=== PATIENT | male | born 1975 | race Caucasian/White ===

== ENCOUNTER → 2017-10-30 08:48 | Outpatient (CLI) | payer OTHER, SELFPAY ==
--- NOTE | 2017-10-30 08:50 | US_ITS ---
STUDY: ABDOMINAL ULTRASOUND - RIGHT UPPER QUADRANT REASON FOR VISIT: Male, 42 years old. Elevated liver function tests. TECHNIQUE: Ultrasound evaluation of the right upper quadrant was performed with real-time and static luz-scale imaging. TECHNICAL QUALITY: Adequate. COMPARISON: Comparison is made with prior examination dated December 07, 2013. FINDINGS: Liver: The liver measures 13.9 cm. There is increased echogenicity consistent with fatty infiltration. The bile ducts are within normal limits. There is hepatic color flow. The direction of portal flow is hepatopetal. There is no demonstrated mass lesion. Gallbladder: The patient is status post cholecystectomy. Common Bile Duct (C.B.D.): The common bile duct measures 4.5 mm. Pancreas: There is nonvisualization of the pancreas due to overlying bowel gas. Right Kidney: Normal size of the right kidney. The right kidney measures 10.2 cm x 5.1 cm x 5.8 cm. Normal renal cortex. The right cortex measures 1.7 cm. There now is evidence of a 4.4 cm x 3.7 cm x 4.3 cm hypoechoic solid mass in the medial aspect of the right kidney. Correlation with a CT scan is recommended. Stable 1.3 cm x 1.1 cm x 1.3 cm cyst. Stable nonobstructive right intrarenal calculus. There is no right hydronephrosis. US/Liver IMPRESSION: Fatty infiltration of the liver. There is a new 4.4 cm x 3.7 cm x 4.3 cm hypoechoic mass arising from the medial aspect of the right kidney. Correlation with CT scan is recommended. Electronically Signed: Young Aguayo MD at 11:17 EST Tel [phone], Service support ,
== END ==
PROVIDERS: Family Provider Nurse Practitioner; PCP Nurse Practitioner; Visit Provider Nurse Practitioner
DX: R74.8 Abnormal levels of other serum enzymes (principal)
CPT/HCPCS: 76705

== ENCOUNTER → 2017-10-30 13:43 | Outpatient (CLI) | payer OTHER, SELFPAY ==
--- NOTE | 2017-10-30 13:57 | CT_ITS ---
STUDY: CT ABDOMEN AND PELVIS WITH AND WITHOUT CONTRAST REASON FOR EXAM: Male, 42 years old. Assessment of a right renal mass seen on prior ultrasound of the abdomen. RADIATION DOSAGE (If Supplied By Facility): CTDIvol = ( 24.94 ) mGy, DLP = ( 3801.71 ) mGycm TECHNIQUE: Transaxial images were obtained from the dome of the diaphragm to the symphysis pubis without oral contrast. 100ML ml of Isovue 300 contrast was administered. Sagittal and coronal images were reconstructed. Individualized dose optimization techniques were used for this CT. COMPARISON: Comparison is made with prior ultrasound earlier today. FINDINGS: The visualized lung bases are unremarkable. The visualized portions of the heart are within normal limits. There is a 1.1 cm cyst in the peripheral lateral aspect of the right lobe of the liver superiorly. The patient is status post cholecystectomy. There is mild splenomegaly. Normal pancreas. Normal bilateral adrenal glands. There is evidence of a 5.5 cm x 3.6 cm x 4.2 cm inhomogeneously enhancing solid mass along the anterior superior aspect of the right kidney. This corresponds to the ultrasound findings. Normal left kidney. Normal visualized stomach. Normal small intestine. Normal colon. The appendix is visualized and appears normal. Normal abdominal aorta. Normal inferior vena cava. Normal retroperitoneum. Normal urinary bladder. Normal abdominal wall. Normal osseous structures. CT/CT Abd/Pelvis W/WO Contrast IMPRESSION: There is a 5.5 cm x 3.6 cm x 4.2 cm inhomogeneously enhancing solid mass arising from the anterior superior aspect of the right kidney. A neoplastic process should be ruled out. Mild splenomegaly. Small cyst in the right lobe of the liver. Electronically Signed: Young Aguayo MD at 14:47 EST Tel [phone], Service support ,
== END ==
PROVIDERS: Family Provider Nurse Practitioner; PCP Nurse Practitioner; Visit Provider Nurse Practitioner
DX: N28.89 Other specified disorders of kidney and ureter (principal)
CPT/HCPCS: 74178; Q9967

== ENCOUNTER 2017-11-22 05:36 | Inpatient (IN) | payer OTHER, SELFPAY ==
[2017-11-18 14:10] VITALS: BP 148/92; PULSE 71; RESP 16; TEMP 37.3; O2SAT 99; BMI 27.6
--- NOTE | 2017-11-18 14:44 | SDCEKG_ITS ---
Test Reason : Blood Pressure : / mmHG Vent. Rate : 059 BPM Atrial Rate : 059 BPM P-R Int : 150 ms QRS Dur : 090 ms QT Int : 412 ms P-R-T Axes : 027 054 013 degrees QTc Int : 407 ms Sinus bradycardia with sinus arrhythmia Otherwise normal ECG Confirmed by MARJAN RODRIGUEZ, DASH ([id number]), editorial project manager LOVE YEE ([id number]) on 11/22/2017 1:34:49 PM Referred By: Jorge Moore Confirmed By:DASH PHILLIP MD
--- NOTE | 2017-11-18 15:02 | RAD_ITS ---
STUDY: X-RAY CHEST REASON FOR EXAM: Male, 42 years old. Preoperative evaluation. TECHNIQUE: PA and lateral views of the chest. COMPARISON: None. FINDINGS: The lungs are clear and expanded. There is no demonstrated pleural abnormality. Normal size heart. Normal mediastinum and silvana. Normal visualized pulmonary arteries. Normal visualized aortic arch and descending thoracic aorta. There is a dextroscoliosis of the thoracic spine. Normal visualized ribs, clavicles, and shoulders. There is no demonstrated abnormality of the visualized soft tissue structures of the upper abdomen. RAD/Chest PA and Lateral IMPRESSION: Normal x-ray examination of the chest. Electronically Signed: Young Aguayo MD at 15:46 EDT Tel [phone], Service support ,
[2017-11-18 15:23] LABS: Hematocrit 42.9 % (40-54); Hemoglobin 14.6 g/dl (13.0-16.5); Mean Corpuscular Hgb 29.1 pg (27.0-32.0); Mean Corpuscular Volume 85.5 fL (80-94); Mean Platelet Vol. 10.4 fl (6.2-12.0); Platelet Count 205 K/mm3 (150-450); RBC Distribution Width SD 40.1 fl (35.1-43.9); Red Blood Count 5.02 M/mm3 (4.6-6.2); White Blood Count 4.5 K/mm3 (4.4-11.0)
[2017-11-18 15:33] LABS: Scan Indicated on CBC? Y/N NO
[2017-11-18 16:01] LABS: ALB/GLOB Ratio 1.2 RATIO (0.9-2.4); AST(SGOT) 21 U/L (15-37); Alanine Aminotransfer ALT/SGPT 49 U/L (16-61); Alkaline Phosphatase 100 U/L (45-117); Anion Gap 5 (5-15); BUN 12 mg/dL (7-18); BUN/Creat Ratio 10.9 RATIO (10-20); Calcium,Total 8.9 mg/dL (8.5-10.1); Chloride 104 mmol/L (98-107); EST Glomerular Filtration Rate 78 mL/min (>60); Est Glom Filt Rate - Afr Amer 94 mL/min (>60); Estimated Creatinine Clearance 104.56 ml/min; Globulin 3.2 g/dL (2.2-4.2); Glucose 109 mg/dL (74-106); Potassium 4.2 mmol/L (3.5-5.1); Protein, Total 7.2 g/dL (6.4-8.2); Sodium Level 140 mmol/L (136-145)
[2017-11-18 16:34] LABS: Partial Thromboplast Time 30.8 Seconds (24.1-36.2)
[2017-11-22] VITALS (12 sets, daily range): BP systolic 128–152; BP diastolic 76–98; PULSE 49–92; RESP 12–18; TEMP 36.1–37.3; O2SAT 96–100; BMI 27.6
--- NOTE | 2017-11-22 | KID_PTH ---
PATIENT: ENRIQUETA REESE LOC: [facility] U#:[id number] AGE/SX: 42/M ROOM: IN320 RE11/22/[address]: Dr. Jorge Moore MD : [id number] BED: 1 DIS: 11/24/2017 SPEC #: [id number] RECD: 11/22/17 12:15 STATUS: TOMÁS DAMION #: [id number] FRANCOISE: 11/22/17 00:[address]: Jorge Moore DEPT: SURGICAL PATHOLOGY RECD BY: Scooter Gregg ENTERED: 11/22/17 12:16 SP TYPE: KIDNEY OTHR DR: Patricia Chauhan, VINEYARD TENDER-C Tissues: Kidney, NOS Procedures: Surgery Specimen Level V HEADER OPERATION: Laparoscopic robotic right partial nephrectomy PRE-OP DIAGNOSIS: Right renal mass TISSUE SUBMITTED: Right renal mass MICROSCOPIC DIAGNOSIS Right renal mass, partial nephrectomy: Clear cell renal cell carcinoma. See cancer check list below. AM:elizabeth 11/26/17 COMMENT KIDNEY CANCER SUMMARY: Procedure ? partial nephrectomy Specimen laterality - right Tumor size - 4.5 x 4 x 3 cm Tumor focality - unifocal Macroscopic extent of tumor ? tumor confined to kidney Histologic type ? clear cell renal cell carcinoma Sarcomatoid features ? not identified Histologic grade (Niels nuclear grade) ? G2 Microscopic tumor extension ? tumor limited to kidney Margins ? uninvolved by invasive carcinoma Regional lymph nodes ? not submitted Other findings ? mild arterial nephrosclerosis and mild chronic inflammation. PATHOLOGIC STAGE: pT1b Nx Mx The above summary is in compliance with [employer] (CAP) Cancer Protocols Checklist and [place] Joint Committee on Cancer (AJCC), Staging Manual, 8th Ed. Case has been reviewed in consultation with Dr. Pascual who concurs with the above diagnosis. IDC:SJ MICROSCOPIC DESCRIPTION Slides are reviewed. GROSS DESCRIPTION Received in fixative is one container labeled with the patient's name and designated right mid renal mass. The specimen consists of a mass with portions of attached kidney and perinephric fat measuring 9 x 7 x 4 cm and weighing 64 gm. The mass is yellow with areas of hemorrhage and yellow discoloration. The mass measures 4.5 x 4 x 3 cm. The presumed parenchymal margin is inked in blue ink. The perinephric fatty tissue margin is inked in green ink. Healthcare Specialist sections of the specimen are submitted in ten cassettes. / AM:elizabeth 11/25/17 TC:0 CPT: 25906
[2017-11-22] MEDS: Cefazolin 2 GM in 0.9% Normal Saline 100 ML IV (07:26)
[2017-11-22] MEDS: Bupivacaine Mpf 0.5% 30 ML VIAL (11:45)
--- NOTE | 2017-11-22 11:55 | PCM.OPRPT ---
Problem List (1) Right renal mass Status: Acute Report of Operation Date of Procedure: 11/22/17 Pre-Operative Diagnosis: Right renal mass Post-Operative Diagnosis: Same Surgery/Procedure Performed:: Laparoscopic robotic assisted right partial nephrectomy and intraoperative ultrasound Description of Surgical Findings:: 42-year-old male who presented to the office with a 5 cm right renal mass incidentally found on ultrasound and CAT scan. Because of the abnormal growth in his kidney recommended we proceed with a right partial nephrectomy we reviewed the risks and benefits of the surgery extensively in my office. 42-year-old male taken back to the operating room after smooth induction of general anesthesia he was placed supine on the table he underwent anesthesia endotracheal intubation. Elder catheter was placed. He was then positioned on his right side with his right flank up for approach to the right kidney laparoscopically. We then inspected the abdomen the abdomen was shaved prepped and draped in usual sterile fashion he had a prior gallbladder surgery. He had prior pediatric surgery with a off midline incision. I decided to put in the first trocar right above the midline. Midline incision from his prior incision. Made an incision the skin advanced the Veress needle into the peritoneal cavity insufflated the peritoneal cavity with CO2 gas placed my camera trocar placed my right trocar placement left trocar and then placed my fourth trocar for the robot fourth arm. We then used sharp scissors and dissected the adhesions to the paramedian incision from his pediatric surgery this allowed me to place then the variceal trocar through the umbilicus. The robot was docked. And then we started with the dissection first there was extensive amount of adhesions between the liver and the anterior kidney introitus fat from prior gallbladder surgery this was completely dissected out following the edge of the liver using sharp dissection electrocautery and freed up the liver off the kidney all the way up to extend I reached the attachments of the liver to the sidewall these were taken down this allowed the liver to retract cephalad I then incised the white line of Toldt identified the colon and swept the colon off the kidney all the way down to the pelvis the colon was reflected off the kidney then this allowed me after reflecting the colon off completely then we can identified the gonadal veins and vessels I then went below the ureter and the gonadal vessels and pulled this up and then we docked the fourth arm and with this retracted the kidney cephalad and then dissected along the hilum towards the hilum did not encounter a gonadal vein but as a work my way cephalad I did encounter the duodenum the duodenum was sharply taken off the kidney and kocherized off the kidney I then identified the inferior vena cava. As a dissected along the inferior vena cava we first identified the appear to be an accessory gonadal vessel and then the main renal vein and then behind that was the main renal artery I clipped the successfully gonadal vessel with 2 clips down and one clip up and transected and then dissected out the renal artery to allow for good visualization of the renal artery to clamp this. I then went up to the kidney I used the laparoscopic ultrasound and performed ultrasonography in the kidney to identify the markings of the kidney and to identify the tumor the tumor was then identified we circumferentially marked out the tumor dissected down to the kidney capsule and circumferentially freed up our incision all the way around the tumor for the resection I then used the ultrasound to identify the plane as to where should to resect the tumor. Then at this point the renal artery was clamped with 1 vessel, 1 bulldog was placed in the vessel and I first started making some incisions in the kidney but it was still bleeding too much so went back down to reposition a bulldog but a second bulldog on the artery and then went back up and start dissecting the tumor and there was no bleeding was then able to get underneath the tumor was followed a nice normal parenchymal plane underneath the tumor and elevated the tumor off and then resected the tumor off the kidney bed and then the tumor was put in a Endo Catch bag we then sewed the resection site with 330V lock stitches ran his on the base to control for arterial venous bleeding there was no violation of the collecting system. At this point then we unclamped the artery and the clamp time was about 20 minute 29 minutes the tumor bed was relatively dry some minor oozing placed some Surgicel in the in the tumor bed and Then Pl., Surgicel on top of the FloSeal and then compressed the edges of the tumor bed with 0 Vicryl CT1 stitches to bring the edges together after nice compression there was no bleeding from the resection site we then irrigated copiously undocked the robot we then extracted the tumor through the lower fourth arm trocar this was opened up and then closed this took about 10 minutes to extract the tumor there is no pneumoperitoneum at the no pneumoperitoneum at the time went back into the camera trocar and there was no collection of bleeding or bleeding from the kidney we then irrigated some more suction all the irrigation and any blood inspected the hilum the hilum was good the artery was pulsating the kidney looked healthy we then closed the camera trocar with a Elijah Mccormack stitch and then closed the variceal port assistant food service director trocar the Elijah Mccormack stitch patient's anesthetic was reversed we closed all the incisions subcu jugular stitches and bandages and dressings were placed and taken back to PACU in good condition and grossly it was a complete resection of the tumor with no violation. Type of Anesthesia:: General Drains: elder - Admit VTE Documentation VTE Present on Admission: No VTE Mechan Device Prophylaxis: SCD's VTE Pharm Prophylaxis ordered?: No Reason prophylaxis not ordered:: Treatment Not Indicated
[2017-11-22] MEDS: Ketorolac 15 MG/ML Vial IV ×2 (12:29→17:24)
[2017-11-22] MEDS: 0.45% Normal Saline 1,000 ML 125 ML IV ×2 (14:11→22:39)
[2017-11-22] MEDS: 0.9% NaCl Peripheral Flush Adult/Peds IV ×3 (15:53→17:57)
[2017-11-22] MEDS: Ondansetron 4 MG/2 ML Vial IV ×2 (15:53→20:44)
[2017-11-22] MEDS: cloNIDine HCl 0.1 MG Tablet PO (17:24)
[2017-11-22] MEDS: levETIRAcetam 1,000 MG Tablet 2000 MG PO (17:24)
--- NOTE | 2017-11-22 21:08 | NURSING ---
Patient given morphine; red streak noticed going up vein in left arm after morphine given. IV fluids stopped.
[2017-11-22] MEDS: HYDROcodone Bitartrate/Apap 5/325 Tablet PO (22:38)
[2017-11-22] MEDS: Docusate Sodium 100 MG Capsule PO (22:40)
[2017-11-23] MEDS: Ketorolac 15 MG/ML Vial IV ×4 (01:00→18:10)
[2017-11-23] MEDS: levETIRAcetam 750 MG Tablet 1500 MG PO (01:05)
[2017-11-23] MEDS: cloNIDine HCl 0.1 MG Tablet PO ×2 (01:15→16:39)
[2017-11-23] MEDS: Ondansetron 4 MG/2 ML Vial IV ×2 (01:48→07:16)
[2017-11-23] MEDS: HYDROcodone Bitartrate/Apap 5/325 Tablet PO ×4 (03:58→21:15)
[2017-11-23] MEDS: 0.45% Normal Saline 1,000 ML 125 ML IV ×2 (06:14→07:18)
[2017-11-23] MEDS: Enoxaparin 40 MG/0.4 ML Syringe SC (06:14)
[2017-11-23 07:44] LABS: Absolute Lymphocyte Count 0.52 X10^3/ul (0.83-4.51); Differential Indicated SCAN CRITERIA MET; Hematocrit 39.1 % (40-54); Hemoglobin 12.9 g/dl (13.0-16.5); Lymphocyte # 0.52 X10^3/ul (4.0); Lymphocyte % 7.2 % (19-41); Mean Corpuscular Hgb 28.2 pg (27.0-32.0); Mean Corpuscular Volume 85.4 fL (80-94); Mean Platelet Vol. 10.4 fl (6.2-12.0); Monocyte# 0.75 X10^3/uL; Monocyte% 10.4 % (0-10); Neutrophil # 5.96 X10^3/uL (2.7-7.7); Neutrophil % 82.3 % (47-70); POSITIVE COUNT NO; POSITIVE DIFFERENTIAL YES; POSITIVE MORPHOLOGY NO; Platelet Count 185 K/mm3 (150-450); RBC Distribution Width CV 12.7 % (11.6-14.6); RBC Distribution Width SD 39.4 fl (35.1-43.9); Red Blood Count 4.58 M/mm3 (4.6-6.2); White Blood Count 7.2 K/mm3 (4.4-11.0)
[2017-11-23 07:49] LABS: Anion Gap 9 (5-15); BUN 14 mg/dL (7-18); BUN/Creat Ratio 10.8 RATIO (10-20); Calcium,Total 7.9 mg/dL (8.5-10.1); Chloride 105 mmol/L (98-107); EST Glomerular Filtration Rate 64 mL/min (>60); Est Glom Filt Rate - Afr Amer 78 mL/min (>60); Estimated Creatinine Clearance 88.47 ml/min; Glucose 133 mg/dL (74-106); Potassium 3.5 mmol/L (3.5-5.1); Sodium Level 139 mmol/L (136-145)
[2017-11-23 08:56] VITALS: BP 131/77; PULSE 102; RESP 18; TEMP 36.9; O2SAT 92
[2017-11-23] MEDS: Magnesium Hydroxide 30 ML UDC 15 ML PO (09:07)
[2017-11-23] MEDS: Pantoprazole Sodium 20 MG Tablet PO (09:07)
[2017-11-23] MEDS: HYDROCHLOROTHIAZIDE 12.5 MG CAPSULE PO (09:07)
[2017-11-23] MEDS: Lisinopril 40 MG Tablet PO (09:07)
[2017-11-23] MEDS: Loratadine 10 MG Tablet PO (09:07)
[2017-11-23] MEDS: Docusate Sodium 100 MG Capsule PO ×2 (09:07→21:16)
[2017-11-23] MEDS: Montelukast 10 MG Tablet PO (09:07)
--- NOTE | 2017-11-23 10:40 | PCM.PROGNOTE ---
Patient Problems: Active and Suspected Problems Right renal mass (Acute) Subjective: 42-year-old male status post right partial nephrectomy clinically doing well, had some mild nausea this morning but no vomiting. His abdomen is nice and soft and benign. His hematocrit hematocrit stable but no significant change. He was up out of bed yesterday ?1. Hicks catheter is out. Plan to Hep-Lock his fluids advance him to regular diet encourage ambulation and await return of regular bowel function. - Physical Exam General: Alert, Oriented x3, Cooperative HEENT: Atraumatic, PERRLA, EOMI, Normocephalic Neck: Supple, No JVD, Negative Carotid Bruits Lungs: Clear to auscultation, Normal air movement Cardiovascular: Regular rate, No murmurs Abdomen: Bowel Sounds Present, Soft, Non Tender Extremities: No edema, Capillary Refill Less than 3 Seconds Skin: No rashes, No breakdown Musculoskeletal: No Tenderness to Palpation of Joints or Extremities Neurological: Cranial nerves II-XII grossly intact Psych/Mental Status: Normal Affect, Appropriate Vital Signs Temp Pulse Resp BP Pulse Ox 98.4 F 102 H 18 131/77 H 92 11/23/17 08:56 11/23/17 08:56 11/23/17 08:56 11/23/17 08:56 11/23/17 08:56 Oxygen Flow Rate (L/min) 2 Oxygen Delivery Method Room Air Weight: 100.3 kg Body Mass Index (BMI) 27.6 Intake and Output for Last 24 Hours 11/21/17 11/22/17 11/23/17 23:59 23:59 23:59 Intake Total 3940 / 3940 2982 / 2982 Output Total 270 / 270 1400 / 1400 Balance 3670 / 3670 1582 / 1582 Laboratory Tests Past 24 Hrs 11/23/17 11/23/17 06:55 06:55 WBC 7.2 RBC 4.58 L Hgb 12.9 L Hct 39.1 L MCV 85.4 MCH 28.2 MCHC 33.0 RDW 12.7 RDW Differential 39.4 Plt Count 185 MPV 10.4 Immature Gran % (Auto) 0.100 Neut % (Auto) 82.3 H Lymph % (Auto) 7.2 L Meriwether % (Auto) 10.4 H Eos % (Auto) 0.0 Baso % (Auto) 0.0 Absolute Neuts (auto) 6.0 Absolute Lymphs (auto) 0.52 L Total Counted Not Reportable Sodium 139 Potassium 3.5 Chloride 105 Carbon Dioxide 25.0 Anion Gap 9 BUN 14 Creatinine 1.30 Estim Creat Clear Calc 88.47 Est GFR (MDRD) Af Amer 78 Est GFR (MDRD) Non-Af 64 BUN/Creatinine Ratio 10.8 Glucose 133 H Calcium 7.9 L Medical Necessity - Tobacco Use Smoking Status: Former smoker Tobacco Use: Non-smoker Assessment/Plan Active and Suspected Problems Right renal mass (Acute) Postoperative day #1 status post right partial nephrectomy, robotic, clinically doing well plan to ambulate today, advance regular diet. Hopefully will be discharged by tomorrow.
--- NOTE | 2017-11-23 10:44 | CASEMGMT ---
RN CM chart review/physician rounds. Per Dr. Moore, probable dc tomorrow. No dc needs identified. Adal VALDEZN RN ACM
[2017-11-23] MEDS: 0.9% NaCl Peripheral Flush Adult/Peds IV ×2 (11:22→18:10)
[2017-11-23 14:00] VITALS: BP 133/72; PULSE 85; RESP 16; TEMP 37; O2SAT 97
[2017-11-23] MEDS: Acetaminophen 500 MG Tablet PO (14:07)
[2017-11-23 16:38] VITALS: BP 137/87
[2017-11-23] MEDS: levETIRAcetam 1,000 MG Tablet 2000 MG PO (16:39)
[2017-11-23 20:00] VITALS: BP 118/77; PULSE 89; RESP 18; TEMP 36.6; O2SAT 92
[2017-11-24] MEDS: Ketorolac 15 MG/ML Vial IV ×2 (00:28→06:26)
[2017-11-24] MEDS: Zolpidem Tartrate 5 MG Tablet PO (00:28)
[2017-11-24] MEDS: 0.9% NaCl Peripheral Flush Adult/Peds IV ×2 (00:29→06:27)
[2017-11-24 02:00] VITALS: BP 149/85; PULSE 68; RESP 18; TEMP 36.7; O2SAT 93
[2017-11-24] MEDS: cloNIDine HCl 0.1 MG Tablet PO (03:00)
[2017-11-24] MEDS: levETIRAcetam 750 MG Tablet 1500 MG PO (03:00)
[2017-11-24] MEDS: Enoxaparin 40 MG/0.4 ML Syringe SC (06:26)
[2017-11-24] MEDS: HYDROcodone Bitartrate/Apap 5/325 Tablet PO (06:27)
[2017-11-24 08:54] VITALS: BP 146/90; PULSE 77; RESP 14; TEMP 36.6; O2SAT 95
[2017-11-24] MEDS: Magnesium Hydroxide 30 ML UDC 15 ML PO (08:57)
[2017-11-24] MEDS: HYDROCHLOROTHIAZIDE 12.5 MG CAPSULE PO (08:57)
[2017-11-24] MEDS: Loratadine 10 MG Tablet PO (08:58)
[2017-11-24] MEDS: Lisinopril 40 MG Tablet PO (08:58)
[2017-11-24] MEDS: Montelukast 10 MG Tablet PO (08:58)
[2017-11-24] MEDS: Docusate Sodium 100 MG Capsule PO (08:58)
[2017-11-24] MEDS: Pantoprazole Sodium 20 MG Tablet PO (08:58)
--- NOTE | 2017-11-24 10:52 | PCM.DC.SUM ---
Discharge Date and Diagnosis - Problem List Patient Problems: Active and Suspected Problems Right renal mass (Acute) Date of Admission: 11/22/17 Date of Discharge: 11/24/17 - Primary Discharge Diagnosis Active and Suspected Problems Right renal mass (Acute) Hospital Course and Treatment Operations: - - Right robotic partial nephrectomy Procedures: None Summary of Care Provided: The patient is a 42 year old male with a solid enhancing right renal mass who underwent a right robotic partial nephrectomy. Postoperative day #1 patient was doing well catheter was removed advance to regular diet ambulating. Postoperative day #2 is passing regular gas was feeling well abdomen was nice and soft and benign blood work was stable. He will be discharged home with stool softeners and pain medicine and has an appointment to see me this coming week for follow-up on . Final pathology pending Discharge Diet: Light diet - advance as tolerated Discharge Activity: May not drive while taking narcotic pain medications., May Shower Return to work on:: 01/01/18 May shower in (days): 1 Call your doctor if your incision/area has: Continuous Slow Oozing, Sudden Increased Bleeding, Increased Pain/ Swelling, Increased Redness, Foul Smelling Discharge, Swelling at the incision site Suture Line Care: Avoid Pulling/Pushing, Avoid Pinching/Bending Home Medications: Medications to take at Discharge Clonidine HCl [Catapres] 0.1 mg PO BID 07/07/13 Lisinopril [Zestril] 40 mg PO DAILY 07/07/13 Montelukast [Singulair] 10 mg PO DAILY 07/07/13 Cetirizine HCl [Zyrtec] 10 mg PO DAILY 03/03/14 Hydrochlorothiazide 12.5 mg PO DAILY 03/03/14 Zolpidem Tartrate [Ambien] 10 mg PO QHS PRN PRN 03/03/14 Levetiracetam [Keppra] 1,500 mg PO 0200 03/09/14 Cholecalciferol (Vitamin D3) [Vitamin D3] 2,000 unit PO DAILY 11/18/17 Levetiracetam [Keppra] 2,000 mg PO 1700 11/18/17 Docusate Sodium [Colace] 100 mg PO BID #14 cap 11/24/17 Hydrocodone/Acetaminophen [[place] 5-325 Tablet] 1 ea PO Q6H PRN PRN 5 Days #14 tab 11/24/17 Following Prescrptions Were Given to Patient: Hydrocodone/Acetaminophen [[place] 5-325 Tablet] 1 ea PO Q6H PRN PRN 5 Days #14 tab PRN Reason: Pain Docusate Sodium [Colace] 100 mg PO BID #14 cap Primary Care Physician: Patricia Chauhan [Primary Care Provider] - Please Follow Up With: Jorge Moore MD When: November 28 at 2pm Medical Necessity - Tobacco Use Smoking Status: Former smoker Tobacco Use: Non-smoker Meaningful Use Info Meaningful Use Diagnoses (Choose all that apply): None applicable
[2017-11-24 11:06] VITALS: BP 145/87; PULSE 73; RESP 16; TEMP 36.6; O2SAT 96
[2017-11-24] MEDS: Acetaminophen 500 MG Tablet PO (11:26)
== END 2017-11-24 11:35 | disposition home or self-care (01) | DRG 658 ==
LOC: MS3 05:37
PROVIDERS: Admitting Provider Urology; Family Provider Nurse Practitioner; PCP Nurse Practitioner; Visit Provider Urology
PROC: 0TB04ZZ Excision of Right Kidney, Percutaneous Endoscopic Approach (ICD-10-PCS; CPT 50543; principal; 2017-11-22 07:10)
DX: C64.1 Malignant neoplasm of right kidney, except renal pelvis (principal); R56.9 Unspecified convulsions; I10 Essential (primary) hypertension; Z87.891 Personal history of nicotine dependence; Z79.899 Other long term (current) drug therapy
CPT/HCPCS: 36415; 71046; 80048; 80053; 85025; 85027; 85730; 86850; 86900; 86920; 86922; 88307; 93005; 97803; J3010; J7120; A4216; J2405

== ENCOUNTER → 2018-03-06 14:37 | Outpatient (CLI) | payer OTHER, SELFPAY ==
--- NOTE | 2018-03-06 14:45 | RAD_ITS ---
STUDY: X-RAY CHEST REASON FOR EXAM: Male, 43 years old. Shortness of breath TECHNIQUE: Frontal and lateral views of the chest COMPARISON: 11/18/2017 FINDINGS: The lungs are clear. There are no pleural effusions. There is no pneumothorax. The heart is normal in size. The visualized osseous structures are within normal limits. RAD/Chest PA and Lateral IMPRESSION: No acute thoracic pathology. Electronically Signed: Rony Altman, at 22:38 EDT Tel , Service support ,
[2018-03-06 15:33] LABS: Hematocrit 44.4 % (40-54); Hemoglobin 14.6 g/dl (13.0-16.5); Mean Corp Hgb Conc 32.9 g/gl (32-36); Mean Corpuscular Hgb 27.5 pg (27.0-32.0); Mean Corpuscular Volume 83.6 fL (80-94); Mean Platelet Vol. 10.3 fl (6.2-12.0); Platelet Count 190 K/mm3 (150-450); Red Blood Count 5.31 M/mm3 (4.6-6.2); White Blood Count 4.3 K/mm3 (4.4-11.0)
[2018-03-06 15:35] LABS: Scan Indicated on CBC? Y/N NO
[2018-03-06 16:02] LABS: ALB/GLOB Ratio 1.1 RATIO (0.9-2.4); AST(SGOT) 19 U/L (15-37); Alanine Aminotransfer ALT/SGPT 33 U/L (16-61); Alkaline Phosphatase 94 U/L (45-117); Anion Gap 5 (5-15); BUN 14 mg/dL (7-18); BUN/Creat Ratio 12.2 RATIO (10-20); Calcium,Total 8.9 mg/dL (8.5-10.1); Chloride 106 mmol/L (98-107); Creatinine, Serum 1.15 mg/dL (0.70-1.30); EST Glomerular Filtration Rate 74 mL/min (>60); Est Glom Filt Rate - Afr Amer 89 mL/min (>60); Globulin 3.5 g/dL (2.2-4.2); Glucose 106 mg/dL (74-106); Potassium 4.4 mmol/L (3.5-5.1); Protein, Total 7.5 g/dL (6.4-8.2); Sodium Level 140 mmol/L (136-145)
== END ==
PROVIDERS: Family Provider Nurse Practitioner; PCP Nurse Practitioner; Visit Provider Urology
DX: C64.9 Malignant neoplasm of unspecified kidney, except renal pelvis (principal); Z12.5 Encounter for screening for malignant neoplasm of prostate
CPT/HCPCS: 36415; 71046; 80053; 84153; 85027; G0103

== ENCOUNTER → 2019-02-18 | Outpatient (CLI) | payer OTHER, SELFPAY ==
--- NOTE | 2019-02-18 15:57 | CT_ITS ---
HISTORY: History of right renal carcinoma status post partial nephrectomy. COMPARISON: 10/30/2017 TECHNIQUE: Helical CT axial images from the lung bases to the pubic symphysis without and with 75ML of Isovue 300 intravenous contrast. Multiplanar reconstruction. No oral contrast was administered. A radiation dose optimization technique was used for this scan. # of images incl. paperwork: [id number] FINDINGS: LUNG BASES: No basilar consolidation or effusions. LIVER: Normal in size and attenuation. Again seen within the right hepatic lobe is a well-circumscribed hypodense 10 mm lesion compatible with that of cyst. No suspicious hepatic lesions. HEPATOBILIARY: Status post cholecystectomy. No intra- or extrahepatic ductal dilatation. SPLEEN: Borderline splenomegaly. PANCREAS: Normal size and contour. No focal mass. ADRENAL GLANDS: Normal size. No adrenal masses. KIDNEYS: Interval partial nephrectomy of the upper pole of right kidney. No residual recurrent neoplasm. Mild postoperative changes along the right upper pole. Remainder of the right and left kidney is otherwise within normal limits. No nephrolithiasis. No significant cysts are present. BOWEL AND MESENTERY: No small or large bowel dilatation. No focal bowel wall thickening. No colonic diverticulosis. Normal appendix. No abnormal mesenteric lymphadenopathy. No free fluid or pneumoperitoneum. RETROPERITONEUM:Normal caliber abdominal aorta without aneurysm. No abnormal retroperitoneal lymphadenopathy. PELVIS:Urinary bladder is suboptimally distended..Normal sized prostate gland. ABDOMINAL WALL: The abdominal wall is intact. BONES: No suspicious osseous lytic or blastic lesions seen. CT/CT Abd/Pelvis W/WO Contrast IMPRESSION: 1. Interval partial nephrectomy upper pole of right kidney. No residual/recurrent neoplasm. No evidence for metastatic disease to the abdomen or pelvis. 2. No acute intra-abdominal or pelvic disease. 3. Additional stable findings: Right hepatic lobe 1.0 cm cyst. Borderline splenomegaly. Status post cholecystectomy. Individualized dose optimization techniques were used for this CT. at 0312 Reported and signed by: Nilson Matias MD Electronically Signed: Nilson Matias MD at 3:10 EDT Tel , Service support ,
[2019-02-18 16:11] LABS: CREATININE FINGERSTICK 1.6 mg/dL (0.70-1.30)
== END | disposition home or self-care (01) ==
LOC: CT 15:55
PROVIDERS: Family Provider Nurse Practitioner; PCP Nurse Practitioner; Referring Provider Urology; Visit Provider Urology
DX: R31.9 Hematuria, unspecified (principal); C64.9 Malignant neoplasm of unspecified kidney, except renal pelvis
CPT/HCPCS: 74178; Q9967

== ENCOUNTER → 2019-06-09 | Outpatient (CLI) | payer OTHER, SELFPAY ==
--- NOTE | 2019-06-09 15:51 | US_ITS ---
STUDY: THYROID ULTRASOUND REASON FOR EXAM: Male, 44 years old. Abnormal TSH TECHNIQUE: Ultrasound evaluation of the thyroid was performed with real-time and static luz-scale imaging. COMPARISON: None. FINDINGS: RIGHT LOBE: The right lobe of the thyroid gland measures 5.3 x 2.3 x 1.6 cm. There is a homogeneous echotexture. There are no demonstrated solid, cystic or complex lesions. LEFT LOBE: The left lobe of the thyroid gland measures 4.4 x 2 x 1.5 cm. There is a homogeneous echotexture. Small cyst in the lower pole measuring 6 x 6 x 4 mm demonstrating irregular margins and darryn nodular vascularity. ISTHMUS: The isthmus measures 3 mm . The regional lymph nodes are normal. US/Thyroid IMPRESSION: Tiny cyst in the lower pole of the left lobe measuring 6 x 6 x 4 mm. Electronically Signed: Hakeem Werner MD at 16:49 EDT , Service support ,
== END | disposition home or self-care (01) ==
LOC: US 15:50
PROVIDERS: Family Provider Nurse Practitioner; PCP Nurse Practitioner; Referring Provider Nurse Practitioner; Visit Provider Nurse Practitioner
DX: R94.6 Abnormal results of thyroid function studies (principal)
CPT/HCPCS: 76536

== ENCOUNTER → 2019-08-14 15:34 | Outpatient (CLI) | payer OTHER, SELFPAY ==
[2017-11-22 13:51] VITALS: BMI 27.6
--- NOTE | 2019-08-14 15:40 | RAD_ITS ---
STUDY: X-RAY CHEST REASON FOR EXAM: Male, 44 years old. 1 year follow-up TECHNIQUE: PA and lateral views of the chest. COMPARISON: Prior study of 03/06/2018 FINDINGS: The lungs are clear and expanded. There is no demonstrated pleural abnormality. Normal size heart. Normal mediastinum and silvana. Normal visualized pulmonary arteries. Normal visualized aortic arch and descending thoracic aorta. There is a dextroscoliosis of the thoracic spine. Normal visualized ribs, clavicles, and shoulders. There is no demonstrated abnormality of the visualized soft tissue structures of the upper abdomen. RAD/Chest PA and Lateral IMPRESSION: Thoracic dextroscoliosis. No acute cardiopulmonary disease process is seen. Electronically Signed: Sascha Causey MD at 16:08 EST , Service support ,
[2019-08-14 16:04] LABS: Hemoglobin 13.7 g/dL (13.0-16.5); Mean Corp Hgb Conc 33.4 g/dL (32-36); Mean Corpuscular Hgb 28.4 pg (27.0-32.0); Mean Corpuscular Volume 85.1 fL (80-94); Mean Platelet Vol. 10.3 fl (6.2-12.0); Platelet Count 182 K/mm3 (150-450); RBC Distribution Width CV 12.4 % (11.6-14.6); RBC Distribution Width SD 38.4 fl (35.1-43.9); Red Blood Count 4.82 M/mm3 (4.6-6.2); White Blood Count 4.2 K/mm3 (4.4-11.0)
[2019-08-14 16:39] LABS: ALB/GLOB Ratio 1.4 RATIO (0.9-2.4); AST(SGOT) 20 U/L (15-37); Alanine Aminotransfer ALT/SGPT 36 U/L (16-61); Alkaline Phosphatase 74 U/L (45-117); Anion Gap 4 (5-15); BUN 9 mg/dL (7-18); BUN/Creat Ratio 7.3 RATIO (10-20); Calcium,Total 8.5 mg/dL (8.5-10.1); Chloride 108 mmol/L (98-107); Creatinine, Serum 1.23 mg/dL (0.70-1.30); EST Glomerular Filtration Rate 68 mL/min (>60); Est Glom Filt Rate - Afr Amer 82 mL/min (>60); Globulin 2.9 g/dL (2.2-4.2); Glucose 114 mg/dL (74-106); Potassium 3.7 mmol/L (3.5-5.1); Protein, Total 6.9 g/dL (6.4-8.2); Sodium Level 141 mmol/L (136-145)
== END ==
PROVIDERS: Family Provider Nurse Practitioner; PCP Nurse Practitioner; Referring Provider Urology; Visit Provider Urology
DX: C64.1 Malignant neoplasm of right kidney, except renal pelvis (principal)
CPT/HCPCS: 36415; 71046; 80053; 85027

== ENCOUNTER → 2019-09-18 15:37 | Outpatient (CLI) | payer OTHER, SELFPAY ==
[2017-11-22 13:51] VITALS: BMI 27.6
[2019-09-18 18:11] LABS: Vitamin B12 457 pg/mL (211-911)
[2019-09-18 18:42] LABS: PSA,Total - Annual Screen 0.69 ng/mL (0.00-4.00)
== END ==
PROVIDERS: Family Provider Nurse Practitioner; PCP Nurse Practitioner; Referring Provider Nurse Practitioner; Visit Provider Nurse Practitioner
DX: K55.049 Acute infarction of large intestine, extent unspecified (principal); Z12.5 Encounter for screening for malignant neoplasm of prostate
CPT/HCPCS: 36415; 82607; 82746; 84153; G0103

== ENCOUNTER → 2020-08-31 13:29 | Outpatient (CLI) | payer OTHER, SELFPAY ==
--- NOTE | 2020-08-31 13:31 | CT_ITS ---
STUDY: CT ABDOMEN WITH CONTRAST REASON FOR EXAM: Male, 45 years old. Malignant neoplasm of right kidney follow up, partial nephrectomy, cholecystectomy, partial small bowel resection as an infant d/t gangrene. RADIATION DOSAGE (If Supplied By Facility): CTDIvol = ( 21.67 ) mGy, DLP = ( 821.83 ) mGycm TECHNIQUE: Transaxial images were obtained post I.V. administration of IV 100mL Isovue-300, and without oral contrast. Sagittal and coronal images were reconstructed. Individualized dose optimization techniques were used for this CT. COMPARISON: Comparison is made with prior examination dated 02/18/2019. FINDINGS: The visualized lung bases are unremarkable. The visualized portions of the heart are within normal limits. Stable 1.7 cm cyst in the lateral aspect of the right lobe of the liver. The patient is status post cholecystectomy. Normal spleen. Normal pancreas. Normal bilateral adrenal glands. Stable partial nephrectomy of the upper pole of the right kidney. Normal left kidney. There is a small hiatal hernia. Normal small intestine. Normal colon. The appendix is visualized and appears normal. Normal abdominal aorta. Normal inferior vena cava. Normal retroperitoneum. Normal abdominal wall. There are mild degenerative changes of the visualized lumbar spine. CT/Abdomen WITH IV Contrast IMPRESSION: Stable examination. Electronically Signed: Young Aguayo, at 14:41 EST , Service support ,
[2020-08-31 14:13] LABS: Creatinine, Serum 1.28 mg/dL (0.70-1.30); EST Glomerular Filtration Rate 64 mL/min (>60); Est Glom Filt Rate - Afr Amer 78 mL/min (>60)
== END ==
PROVIDERS: PCP Nurse Practitioner; Referring Provider Urology; Visit Provider Urology
DX: C64.1 Malignant neoplasm of right kidney, except renal pelvis (principal)
CPT/HCPCS: 36415; 74160; 82565; Q9967

== ENCOUNTER 2021-08-13 23:35 | Observation (INO) | payer OTHER, SELFPAY ==
[2021-08-13 23:35] VITALS: BP 98/71; PULSE 86; RESP 16; TEMP 36.4; O2SAT 99; BMI 27.6
[2021-08-14] VITALS (7 sets, daily range): BP systolic 98–162; BP diastolic 68–105; PULSE 74–122; RESP 16–18; TEMP 36.8–38.1; O2SAT 92–98; BMI 28.1
--- NOTE | 2021-08-14 00:06 | CT_ITS ---
STUDY: CT RIGHT FEMUR WITH CONTRAST REASON FOR EXAM: Male, 46 years old. righ medial thigh pain and redness RADIATION DOSAGE (If Supplied By Facility): CTDIvol = ( 15.76 ) mGy, DLP = ( 996.79 ) mGycm TECHNIQUE: Transaxial CT imaging of the femur was performed post contrast administration. The examination was performed with intravenous administration of IV 100mL Isovue-300. Individualized dose optimization techniques were used for this CT. COMPARISON: None. FINDINGS: Normal osseous structures. There is subcutaneous inflammation, edema within the soft tissues of the medial and inner thigh. This is compatible cellulitis however, there appears to be a small nondrainable abscess in the upper medial inner thigh measuring 3 x 1.5 cm. No evidence of deep muscle extension. Reactive right inguinal lymphadenopathy CT/Extremity Lower WITH Contrast IMPRESSION: Normal osseous structures. There is subcutaneous soft tissue inflammation or edema within the medial and inner thigh with a small area of suspected abscess however, nonremarkable as detailed above. No evidence of deep muscle extension. Reactive or inguinal lymphadenopathy is noted Electronically Signed: Tom Lieberman DO at 2:14 EST Tel , Service support ,
--- NOTE | 2021-08-14 00:09 | EDS_ITS ---
HPI History of Present Illness Chief Complaint: Male Pain/Injury Informant: patient and spouse/S.O. Pain Onset: Days Context: Gradual Onset Timing: Continuous Current Severity: Mild Maximum Severity: Mild Narrative Narrative: 46-year-old male past medical history of hypertension. Patient states on Saturday a week ago he was playing some basketball with some boys at his [employer]. Thinks he injured himself in his right lower leg and mild bruising. Hives come back from the mailbox on Saturday and he said he thought he pulled his groin he started having pain in the right medial thigh groin area. He has really not felt well the last several days. He has had associated nausea and more pain in the right medial thigh. No recent travel, surgery or hospitalization. He has never had a DVT or PE. m he did have a fever of 101 today earlier at home. Prior similar symptoms: No Recent Illness/Hospitalization: No PFSH PFSH Home Medications clonidine HCl 0.1 mg PO BID 07/07/13 [History Last Taken 11/22/17 02:00] lisinopril 40 mg PO DAILY 07/07/13 [History Last Taken 11/22/17 05:10] montelukast 10 mg PO DAILY 07/07/13 [History Last Taken 11/22/17 02:00] cetirizine [Zyrtec] 10 mg PO DAILY 03/03/14 [History Last Taken 03/09/14 05:30] hydrochlorothiazide 12.5 mg PO DAILY 03/03/14 [History Last Taken Unknown] zolpidem [Ambien] 10 mg PO QHS PRN PRN 03/03/14 [History Last Taken Unknown] levetiracetam [Keppra] 1,500 mg PO 0200 03/09/14 [History Last Taken 11/22/17 02:00] cholecalciferol (vitamin D3) [Vitamin D3] 2,000 unit PO DAILY 11/18/17 [History Last Taken Unknown] levetiracetam 2,000 mg PO 1700 11/18/17 [History Last Taken Unknown] docusate sodium 100 mg PO BID #14 cap 11/24/17 [Rx Last Taken Unknown] hydrocodone-acetaminophen 1 ea PO Q6H PRN PRN 5 Days #14 tab 11/24/17 [Rx Last Taken Unknown] Allergy/AdvReac Type Severity Reaction Status Date / Time No Known Allergies Allergy Verified 08/13/21 23:38 Social History Smoking Status: Former smoker ROS ROS ED ROS Narrative Right thigh pain. Nausea. Fever earlier tonight at home of 101. Review of Systems ROS Unobtainable: Denies due to encephalopathy Constitutional Constitutional ED: Denies fever(s) Eyes Eyes: Denies change in vision ENT ENT ED: Denies ear pain Cardiovascular Cardiovascular: Denies chest pain Respiratory/Chest Respiratory/Chest: Denies cough or dyspnea Gastrointestinal Gastrointestinal: Reports nausea; Denies abdominal pain, diarrhea or vomiting Genitourinary Genitourinary ED: Denies dysuria Musculoskeletal Musculoskeletal: Denies myalgias Integumentary Denies rash Neurologic Neurologic: Denies headache(s) Psychiatric Psychiatric: Denies depression Endocrine Endocrinology: Denies polyuria Hematologic/Lymphatic Hematologic/Lymphatic: Denies easy bruising Allergic/Immunologic Allergic/Immunologic ED: Denies urticaria EXAM Physical Exam Narrative Exam Narrative: Middle-age male no acute distress vital signs stable afebrile his blood pressures running low at 98/71. He does not look septic or toxic. Pulse ox 99% room air no signs hypoxia. HEENT exam unremarkable. Neck nontender. No lymphadenopathy. Lungs clear to auscultation bilaterally. Heart regular rhythm no murmur. Rate about 85. Abdomen soft nontender normal bowel sounds no peritoneal signs. External exam unremarkable nontender. Right medial proximal thigh there is redness and inflammation of the skin and subcu tissue. This could be a cellulitis versus swollen infected and inflamed lymph nodes versus other etiology. Both lower extremities are neurovascular intact with full range of motion and motor strength. Back nontender. Upper extremities are unremarkable. Neurologically is awake and alert with no focal motor deficits. Const Vital Signs: 08/13/21 23:35 08/14/21 01:51 Temperature 97.5 F L Temperature Source Temporal Pulse Rate 86 Respiratory Rate 16 Blood Pressure 98/71 141/84 H Blood Pressure Mean 80 103 Pulse Ox 99 Positive well nourished and well developed; Negative for obese, cachectic, contractures or unkempt General Appearance ED: well developed and NAD; Negative for unkempt, cachectic, contractures or pallor Nutritional Appearance: Negative for cachectic or obese HEENT Reports moist mucous membranes normocephalic and atraumatic; Negative for trauma or tenderness Eyes PERRL and EOMs intact bilaterally Neck no lymphadenopathy, supple and no JVD General: Negative for tenderness Resp normal respiratory effort and clear to auscultation bilaterally Auscultation: Negative for rales, rhonchi or wheezes Cardio regular rate, regular rhythm, S1 normal heart sound, S2 normal heart sound and no murmurs GI non-tender, non-distended and no masses Auscultation: normoactive bowel sounds; Negative for hyperactive bowel sounds or hypoactive bowel sounds Palpation: soft Rectal Exam: Negative for tenderness no CVA tenderness Penis: normal penis and circumcised Meatus: meatus normal Scrotum: testes descended bilaterally Testes: testicular lie normal Back/Spine no CVA tenderness General Back: Negative for CVA tenderness Extremity Extremity Narrative: Both upper and left lower extremities are unremarkable. His right medial proximal thigh is red, tender there is swelling and induration of the skin. This could be a cellulitis versus other etiology. Right foot is neurovascular intact with normal motor strength, sensation and pulse. General Extremety ED: Yes tenderness Neuro oriented x3 and moves all extremities Sensorium / Orientation: alert, oriented to person, oriented to place and oriented to time; Negative for confused, lethargic or stuporous Motor Exam: strength 5/5 throughout Psych mental status grossly normal Appearance: Negative for unkempt Mood & Affect: Negative for depressed Skin General Skin Exam: Negative for jaundice or pallor Lesions: no lesions Rashes: no rashes MDM MDM MDM Narrative Medical decision making narrative: 46-year-old male with right lower extremity redness and tenderness is may be cellulitis versus other etiologies. CAT scan and labs are for pain Zofran for nausea and IV fluids due to his hypotension. Repeat exam at 1:10 AM patient is doing well. We went over his test results he is awaiting his CAT scan to be done. Repeat exam patient is doing well at 1:50 AM. Current blood pressure is 141/84. Is resting comfortably. He has received IV Unasyn. I discussed with the patient and his about his cellulitis, borderline hypotension, fever at home and acute kidney injury. Think it is best interest to be admitted overnight for IV antibiotics and further evaluation. They are comfortable with the plan I have the hospitalist on page. I have reviewed his CAT scan and am awaiting the radiologist interpretation. Lab Data Attestation: I reviewed the patient's lab results. Lab results narrative: CBC White count 9.9 hemoglobin 13.9. Electrolytes gap of 12 BUN of 26 creatinine 1.69. Liver enzymes are unremarkable. CAT scan is consistent with cellulitis possibly small abscess. No signs of necrotizing fasciitis or subcu air or deep structure involvement. Labs: Laboratory Results - last 24 hr 08/14/21 08/14/21 00:14 00:14 WBC 9.9 RBC 4.92 Hgb 13.9 Hct 41.0 MCV 83.3 MCH 28.3 MCHC 33.9 RDW Std Deviation 38.1 RDW Coeff of [place] 12.5 Plt Count 176 MPV 10.7 Immature Gran % (Auto) 1.200 H Neut % (Auto) 73.5 H Lymph % (Auto) 3.2 L [place] % (Auto) 16.5 H Eos % (Auto) 5.2 H Baso % (Auto) 0.4 Absolute Neuts (auto) 7.3 Absolute Lymphs (auto) 0.32 L Nucleated RBC % 0 Sodium 137 Potassium 3.7 Chloride 102 Carbon Dioxide 23.0 Anion Gap 12 BUN 26 H Creatinine 1.69 H Estim Creat Clear Calc 63.50 Est GFR (MDRD) Af Amer 56 L Est GFR (MDRD) Non-Af 47 L BUN/Creatinine Ratio 15.4 Glucose 217 H Calcium 9.6 Total Bilirubin 1.10 H AST 11 L ALT 28 Alkaline Phosphatase 92 Total Protein 7.2 Albumin 3.1 L Globulin 4.1 Albumin/Globulin Ratio 0.8 L Radiography Diagnostic Testing: Clinical Impression(s) from Imaging Studies Lower Extremity CT 08/14/21 00:06 IMPRESSION: Normal osseous structures. There is subcutaneous soft tissue inflammation or edema within the medial and inner thigh with a small area of suspected abscess however, nonremarkable as detailed above. No evidence of deep muscle extension. Reactive or inguinal lymphadenopathy is noted Electronically Signed: Tom Lieberman DO at 2:14 EST Tel , Service support , Discharge Plan Dx/Rx/DC Orders Clinical Impression: Cellulitis, Transient hypotension, Acute kidney injury, Fever Disposition Disposition: Acute Care Hospital [facility] Discharge Date/Time: 08/14/21 02:28
[2021-08-14 00:22] LABS: Absolute Lymphocyte Count 0.32 X10^3/uL (0.83-4.51); Absolute Neutrophil Count 7.3 X10^3/uL (2.0-7.7); Basophil# 0.04 X10^3/uL; Basophil% 0.4 % (0-1); Eosinophil# 0.52 X10^3/uL; Eosinophils% 5.2 % (0-5); Hemoglobin 13.9 g/dL (13.0-16.5); Lymphocyte # 0.32 X10^3/ul (0.83-4.51); Lymphocyte % 3.2 % (19-41); Mean Corp Hgb Conc 33.9 g/dL (32-36); Mean Corpuscular Hgb 28.3 pg (27.0-32.0); Mean Corpuscular Volume 83.3 fL (80-94); Mean Platelet Vol. 10.7 fl (6.2-12.0); Monocyte# 1.64 X10^3/uL; Monocyte% 16.5 % (0-10); NRBC Flagged by Analyzer 0 % (0-5); Neutrophil % 73.5 % (47-70); POSITIVE DIFFERENTIAL YES; Platelet Count 176 K/mm3 (150-450); RBC Distribution Width CV 12.5 % (11.6-14.6); RBC Distribution Width SD 38.1 fl (35.1-43.9); Red Blood Count 4.92 M/mm3 (4.6-6.2); White Blood Count 9.9 K/mm3 (4.4-11.0)
[2021-08-14] MEDS: 0.9% Normal Saline 1,000 ML 999 ML IV (00:26)
[2021-08-14 00:29] LABS: Differential Indicated SCAN CRITERIA MET
[2021-08-14] MEDS: Ondansetron 4 MG/2 ML Vial IV (00:29)
[2021-08-14 00:36] LABS: ALB/GLOB Ratio 0.8 RATIO (0.9-2.4); AST(SGOT) 11 U/L (15-37); Alanine Aminotransfer ALT/SGPT 28 U/L (16-61); Albumin, Serum 3.1 g/dL (3.2-5.0); Alkaline Phosphatase 92 U/L (45-117); Anion Gap 12 (5-15); BUN 26 mg/dL (7-18); BUN/Creat Ratio 15.4 RATIO (10-20); Calcium,Total 9.6 mg/dL (8.5-10.1); Chloride 102 mmol/L (98-107); Creatinine, Serum 1.69 mg/dL (0.70-1.30); EST Glomerular Filtration Rate 47 mL/min (>60); Est Glom Filt Rate - Afr Amer 56 mL/min (>60); Globulin 4.1 g/dL (2.2-4.2); Glucose 217 mg/dL (74-106); Potassium 3.7 mmol/L (3.5-5.1); Protein, Total 7.2 g/dL (6.4-8.2); Sodium Level 137 mmol/L (136-145)
[2021-08-14] MEDS: Ketorolac 30 MG/ML Syringe IV (00:36)
--- NOTE | 2021-08-14 02:34 | PCM.HP.STD ---
HPI - General General Date of Admission: 08/14/21 HPI Narrative ENRIQUETA REESE, is a 46 M came to ER after he felt right groin pain on walking to mailbox. He noticed redness and swelling on right upper medial thigh about 5 days ago which progressed to right groin with lymph node swelling and hardness. Patient also had fever and chills for last 3 days. Denies nausea vomiting or headache. Denies any previous history of cellulitis. In ED afebrile. Basic lab does not show leukocytosis. CT of right lower extremity was done shows subcutaneous surface inflammation/edema with nonremarkable small area of abscess measuring 3 x 1.5 cm in upper medial inner thigh. No evidence of deep muscle extension. Reactive right inguinal lymphadenopathy. Patient started on IV Unasyn. Patient had Covid infection in December 2020. No history of Covid vaccine.nondrainable. He denies shortness of breath, headache, cough or other respiratory symptoms. PFSH Home Medications clonidine HCl 0.1 mg PO BID 07/07/13 [History Last Taken 11/22/17 02:00] lisinopril 40 mg PO DAILY 07/07/13 [History Last Taken 11/22/17 05:10] montelukast 10 mg PO DAILY 07/07/13 [History Last Taken 11/22/17 02:00] cetirizine [Zyrtec] 10 mg PO DAILY 03/03/14 [History Last Taken 03/09/14 05:30] hydrochlorothiazide 12.5 mg PO DAILY 03/03/14 [History Last Taken Unknown] zolpidem [Ambien] 10 mg PO QHS PRN PRN 03/03/14 [History Last Taken Unknown] levetiracetam [Keppra] 1,500 mg PO 0200 03/09/14 [History Last Taken 11/22/17 02:00] cholecalciferol (vitamin D3) [Vitamin D3] 2,000 unit PO DAILY 11/18/17 [History Last Taken Unknown] levetiracetam 2,000 mg PO 1700 11/18/17 [History Last Taken Unknown] docusate sodium 100 mg PO BID #14 cap 11/24/17 [Rx Last Taken Unknown] hydrocodone-acetaminophen 1 ea PO Q6H PRN PRN 5 Days #14 tab 11/24/17 [Rx Last Taken Unknown] Allergy/AdvReac Type Severity Reaction Status Date / Time No Known Allergies Allergy Verified 08/13/21 23:38 Social History Smoking Status: Former smoker ROS ROS Narrative Constitutional: Fever. HEENT: Reports systems reviewed and no addt'l complaints, except as documented Respiratory/Chest: Denies chest pain, shortness of breath at rest or with exertion Gastrointestinal: Denies coffee ground emesis, hematemesis or vomiting Genitourinary: Denies burning urination or new urinary tract symptoms Musculoskeletal: No joint pain and limited range of motion Neurologic: Right frontal craniectomy. History of seizure in 2002. On AED. No recent seizure-like activity since then skin: No ulcer. No rash Endocrinology: Reports systems reviewed and no addt'l complaints, except as documented Hematologic/Lymphatic: Reports systems reviewed and no addt'l complaints, except as documented Rest 12 ROS are negative except as mentioned in HPI Vital Signs Vital Signs Vital Signs: 08/13/21 23:35 08/14/21 01:51 08/14/21 02:14 Temperature 97.5 F L 98.3 F Temperature Source Temporal Temporal Pulse Rate 86 74 Respiratory Rate 16 16 Blood Pressure 98/71 141/84 H 145/91 H Blood Pressure Mean 80 103 109 Pulse Ox 99 98 Oxygen Delivery Method Room Air Weight Weight: 215 lb Body Mass Index (BMI) 27.6 Physical Exam Narrative General: Alert, Oriented x3, Cooperative HEENT: Atraumatic, PERRLA, EOMI, Normocephalic. Right frontal craniotomy scar Oral: No Gingival or Mucosal Lesions/ Ulcerations Neck: Supple, No JVD, Negative Carotid Bruits Lungs: Air entry equal in bilateral lung bases. No crepitation/rhonchi Cardiovascular: Regular rate, Regular Rhythm, Normal S1, Normal S2, No murmurs Abdomen: Bowel Sounds Present, Soft, Non Tender, Non-Distended : No renal angle tenderness. No suprapubic tenderness. Extremities: No edema, Capillary Refill Less than 3 Seconds Skin: Redness, tenderness, induration Over upper right Groin to right mid thigh. About 3cm right inguinal lymphadenopathy, tender. No fluctuant swelling Palpable Musculoskeletal: No Tenderness to Palpation of Joints or Extremities Neurological: Cranial nerves II-XII grossly intact, DTR 2+/4 Psych/Mental Status: Normal Affect, Appropriate. Results Lab / Micro Data Result Diagrams: 08/14/21 00:14 08/14/21 00:14 Labs: Laboratory Results - last 24 hr 08/14/21 00:14: WBC 9.9, RBC 4.92, Hgb 13.9, Hct 41.0, MCV 83.3, MCH 28.3, MCHC 33.9, RDW Std Deviation 38.1, RDW Coeff of [place] 12.5, Plt Count 176, MPV 10.7, Immature Gran % (Auto) 1.200 H, Neut % (Auto) 73.5 H, Lymph % (Auto) 3.2 L, [place] % (Auto) 16.5 H, Eos % (Auto) 5.2 H, Baso % (Auto) 0.4, Absolute Neuts (auto) 7.3, Absolute Lymphs (auto) 0.32 L, Nucleated RBC % 0 08/14/21 00:14: Sodium 137, Potassium 3.7, Chloride 102, Carbon Dioxide 23.0, Anion Gap 12, BUN 26 H, Creatinine 1.69 H, Estim Creat Clear Calc 63.50, Est GFR (MDRD) Af Amer 56 L, Est GFR (MDRD) Non-Af 47 L, BUN/Creatinine Ratio 15.4, Glucose 217 H, Calcium 9.6, Total Bilirubin 1.10 H, AST 11 L, ALT 28, Alkaline Phosphatase 92, Total Protein 7.2, Albumin 3.1 L, Globulin 4.1, Albumin/Globulin Ratio 0.8 L Radiology Impression Lower Extremity CT 08/14/21 00:06 IMPRESSION: Normal osseous structures. There is subcutaneous soft tissue inflammation or edema within the medial and inner thigh with a small area of suspected abscess however, nonremarkable as detailed above. No evidence of deep muscle extension. Reactive or inguinal lymphadenopathy is noted Electronically Signed: Tom Lieberman DO at 2:14 EST Tel , Service support , Assessment & Plan Assessment/Plan (1) Cellulitis: PLAN: 1. Right upper medial thigh cellulitis with inguinal lymphadenopathy with a small nondrainable abscess: Patient is being admitted on MedSurg. Started on IV vancomycin and Unasyn. Lower extremity CT as reported above. About 3 x 1.5 cm, now remarkably small area of abscess. Monitor clinically. If there is extension of mass or swelling become fluctuant, consult surgeon to evaluate for incision and drainage. 2. History of brain lesion, unclear possible benign lesion status post right frontal craniectomy and perioperative seizure: Patient did not had a seizure since 2002. Continue antiepileptic medication, Dilantin 3. Hypertension: Blood pressure is in acceptable limit. Continue home medication. 4 Acute kidney injury probably from infection/prerenal: BUN elevated 26. Patient baseline creatinine is 1.28. IV fluid normal saline ordered. Monitor kidney function. Living will/advanced directive/end of life care: Patient does not have living will or advanced directive. After discussion of benefits/risks procedures involved with full code, DNR CC arrest and DNR CC, the patient opted for full code. Patient does want artificial life support including intubation, tube feed, ventilator and/chest compression, central venous catheter, vasopressor and DC shock if needed Total time spent in [id number] encounter in discussion of advanced directive 16 minutes. Charges/Coding Visit Charges Inpatient E&M: 19699 Init Hosp L3 Procedures Hospitalists Procedures: 96388 Advncd Care Plan 30 Min
--- NOTE | 2021-08-14 02:37 | PCS.PANDOC ---
PANDEMIC DOCUMENTATION INITIATED: Date: 04/24/2021 Time: 190
[2021-08-14] MEDS: 0.9% Saline Lock 10 ML Syringe IV ×3 (02:58→23:49)
[2021-08-14] MEDS: 0.9% Normal Saline 1,000 ML 100 ML IV (02:58)
[2021-08-14] MEDS: Enoxaparin 40 MG/0.4 ML Syringe SC ×2 (03:02→10:01)
[2021-08-14] MEDS: Zolpidem Tartrate 5 MG Tablet PO ×2 (03:34→23:49)
[2021-08-14] MEDS: oxyCODONE 5 MG Tablet PO ×4 (03:37→20:18)
--- NOTE | 2021-08-14 03:56 | PHA.PHARE_ITS ---
Consult Pharmacy has been consulted to manage selected antiobiotic: Vancomycin Type of Consult: New start Labs: Sodium 137 mmol/L (136-145) 08/14/21 00:14 Potassium 3.7 mmol/L (3.5-5.1) 08/14/21 00:14 Chloride 102 mmol/L (98-107) 08/14/21 00:14 Carbon Dioxide 23.0 mmol/L (21.0-32.0) 08/14/21 00:14 Anion Gap 12 (5-15) 08/14/21 00:14 BUN 26 mg/dL (7-18) H 08/14/21 00:14 Creatinine 1.69 mg/dL (0.70-1.30) H 08/14/21 00:14 Est GFR (MDRD) Af Amer 56 mL/min (>60) L 08/14/21 00:14 Est GFR (MDRD) Non-Af 47 mL/min (>60) L 08/14/21 00:14 BUN/Creatinine Ratio 15.4 RATIO (10-20) 08/14/21 00:14 Glucose 217 mg/dL (74-106) H 08/14/21 00:14 Weight used for dosin.4 kg Estimated Creatinine Clearance: 68.8 Goal Trough: 15-20 mcg/mL Pharmacy Plan for Drug Dosing: Pharmacy Service will continue to monitor and adjust dosing as required. Medications Vancomycin HCl 1,500 mg/ (Sodium Chloride) 530 mls @ 250 mls/hr IV X1 ONE Stop: 08/14/21 05:07 Last Admin: 08/14/21 03:21 Dose: 250 mls/hr Documented by: Vancomycin HCl 1,250 mg/ (Sodium Chloride) 275 mls @ 167 mls/hr IV Q12H [facility] Follow-Up Labs: Trough Vancomycin Labs to be done on [date and time ordered]: 08/15 @ 9058
[2021-08-14 06:42] LABS: Absolute Lymphocyte Count 0.22 X10^3/uL (0.83-4.51); Absolute Neutrophil Count 7.7 X10^3/uL (2.0-7.7); Basophil# 0.05 X10^3/uL; Basophil% 0.6 % (0-1); Eosinophil# 0.06 X10^3/uL; Eosinophils% 0.7 % (0-5); Hematocrit 42.1 % (40-54); Hemoglobin 13.7 g/dL (13.0-16.5); Lymphocyte # 0.22 X10^3/ul (0.83-4.51); Lymphocyte % 2.4 % (19-41); Mean Corp Hgb Conc 32.5 g/dL (32-36); Mean Corpuscular Volume 85.9 fL (80-94); Mean Platelet Vol. 11.4 fl (6.2-12.0); Monocyte# 0.51 X10^3/uL; Monocyte% 5.7 % (0-10); NRBC Flagged by Analyzer 0 % (0-5); Neutrophil # 7.73 X10^3/uL (2.7-7.7); POSITIVE DIFFERENTIAL YES; POSITIVE MORPHOLOGY YES; Platelet Count 182 K/mm3 (150-450); RBC Distribution Width CV 12.6 % (11.6-14.6); RBC Distribution Width SD 39.7 fl (35.1-43.9)
[2021-08-14 06:45] LABS: Differential Indicated SCAN CRITERIA MET
[2021-08-14 07:19] LABS: Anion Gap 9 (5-15); BUN 24 mg/dL (7-18); Calcium,Total 9.1 mg/dL (8.5-10.1); Chloride 103 mmol/L (98-107); EST Glomerular Filtration Rate 50 mL/min (>60); Est Glom Filt Rate - Afr Amer 60 mL/min (>60); Estimated Creatinine Clearance 67.07 ml/min; Glucose 259 mg/dL (74-106); Potassium 5.3 mmol/L (3.5-5.1); Sodium Level 136 mmol/L (136-145)
[2021-08-14] MEDS: Acetaminophen 325 MG Tablet 650 MG PO ×3 (07:38→20:17)
[2021-08-14] MEDS: Cholecalciferol (VIT D3) 25 MCG TABLET (1,000 UNITS) 50 MCG PO (09:59)
[2021-08-14] MEDS: Lisinopril 40 MG Tablet PO (09:59)
[2021-08-14] MEDS: Docusate Sodium 100 MG Capsule PO ×2 (10:00→21:33)
--- NOTE | 2021-08-14 10:37 | CASEMGMT ---
NANDINI DE LA TORRE assessment: Face to Face with patient for initial transition planning/care coordination assessment. NANDINI DE LA TORRE introduced self and role at [facility], pt voices understanding and consents to assessment. Pt is lying in bed in no distress on room air. Pt is A/Ox4 and answers all questions appropriately. Care providers, pharmacy, and demographics verified. Presentation: Right groin pain since last saturday, thought he pulled a muscle Admitting dx: Cellulitis PCP: Gissel Specialists: sol Moore Preferred Pharmacy: [facility] Insurance: MMO Prescription Benefit: MMO Living Will/HPOA: Pt is unsure if he has LW/HPOA and is aware that it's not on file at [facility]. LNOK: Rekha Hughes, Living Arrangements: Pt lives with in 2 story home and states no concerns at home. Pt is independent with ADL's. Transportation: Pt states drives self and states no transportation concerns. DME/HHC: Pt states no current DME or need for any DME. Pt states no hx of HHC or SNF. Pt states no concerns with going home at time of discharge. 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 Pt states does not smoke cigarettes or drink ETOH. Pt states no further concerns/needs. CM to follow for any further discharge planning/needs. Advised pt to ask for CM if any further questions/concerns/needs arise, voices understanding. Pt Goal: Home Plan[place] NANDINI DE LA TORRE
--- NOTE | 2021-08-14 11:01 | PN.HOSP_ITS ---
Documented by User: Gaye Coleman NP-C 08/14/21 11:13 Subjective Subjective Patient seen and examined. Patient lying in bed no distress noted. Patient states that his pain has been well controlled overnight and that he is feeling subjectively better. Objective Data Objective Data Vital Signs: Vital Signs Temp Pulse Resp BP Pulse Ox 98.6 F 120 H 18 120/105 H 92 08/14/21 09:54 08/14/21 09:54 08/14/21 09:54 08/14/21 09:54 08/14/21 09:54 Oxygen Delivery Method Room Air Weight: 219 lb 2.232 oz Body Mass Index (BMI) 28.1 Intake & Output: Intake and Output for Last 24 Hours 08/12/21 08/13/21 08/14/21 23:59 23:59 23:59 Intake Total 1993 Balance 1993 Lab / Micro Data Result Diagrams: 08/14/21 05:44 08/14/21 12:02 Labs: Laboratory Results - last 24 hr 08/14/21 00:14: WBC 9.9, RBC 4.92, Hgb 13.9, Hct 41.0, MCV 83.3, MCH 28.3, MCHC 33.9, RDW Std Deviation 38.1, RDW Coeff of [place] 12.5, Plt Count 176, MPV 10.7, Immature Gran % (Auto) 1.200 H, Neut % (Auto) 73.5 H, Lymph % (Auto) 3.2 L, [place] % (Auto) 16.5 H, Eos % (Auto) 5.2 H, Baso % (Auto) 0.4, Absolute Neuts (auto) 7.3, Absolute Lymphs (auto) 0.32 L, Nucleated RBC % 0 08/14/21 00:14: Sodium 137, Potassium 3.7, Chloride 102, Carbon Dioxide 23.0, Anion Gap 12, BUN 26 H, Creatinine 1.69 H, Estim Creat Clear Calc 63.50, Est GFR (MDRD) Af Amer 56 L, Est GFR (MDRD) Non-Af 47 L, BUN/Creatinine Ratio 15.4, Glucose 217 H, Calcium 9.6, Total Bilirubin 1.10 H, AST 11 L, ALT 28, Alkaline Phosphatase 92, Total Protein 7.2, Albumin 3.1 L, Globulin 4.1, Albumin/Globulin Ratio 0.8 L 08/14/21 05:44: WBC 9.0, RBC 4.90, Hgb 13.7, Hct 42.1, MCV 85.9, MCH 28.0, MCHC 32.5, RDW Std Deviation 39.7, RDW Coeff of Alot[place] 12.6, Plt Count 182, MPV 11.4, Immature Gran % (Auto) 4.600 H, Neut % (Auto) 86.0 H, Lymph % (Auto) 2.4 L, [place] % (Auto) 5.7, Eos % (Auto) 0.7, Baso % (Auto) 0.6, Absolute Neuts (auto) 7.7, Absolute Lymphs (auto) 0.22 L, Nucleated RBC % 0 08/14/21 05:44: Sodium 136, Potassium 5.3 H, Chloride 103, Carbon Dioxide 24.0, Anion Gap 9, BUN 24 H, Creatinine 1.60 H, Estim Creat Clear Calc 67.07, Est GFR (MDRD) Af Amer 60, Est GFR (MDRD) Non-Af 50 L, BUN/Creatinine Ratio 15.0, Glucose 259 H, Calcium 9.1 Radiography Diagnostic Testing: Radiology Impression Lower Extremity CT 08/14/21 00:06 IMPRESSION: Normal osseous structures. There is subcutaneous soft tissue inflammation or edema within the medial and inner thigh with a small area of suspected abscess however, nonremarkable as detailed above. No evidence of deep muscle extension. Reactive or inguinal lymphadenopathy is noted Electronically Signed: Tombenjamin Lieberman DO at 2:14 EST Tel , Service support , Physical Exam Const alert, oriented x3 and no apparent distress HEENT head/scalp atraumatic Head and Scalp: normocephalic Eyes conjunctivae normal and no scleral icterus Neck full ROM and supple Resp normal respiratory effort, normal air movement and clear to auscultation bi laterally Cardio regular rate, regular rhythm, S1 normal heart sound and S2 normal heart sound GI normal to inspection, nondistended, normoactive bowel sounds, soft to palpation and non-tender Extremity normal to inspection and full ROM General Extremity: edema right lower extremity moderate (Swelling to upper thigh secondary to cellulitis) and bilateral Peripheral Pulses: Yes pulses 2+ throughout Skin Skin Narrative: Patient has a large red area to right thigh however it is improved from admission. Skin is marked with original border. There continues to be a hard nonfluctuant area to the center of the redness. Area is tender with palpation Neuro oriented x3, moves all extremities, no focal motor deficits and no sensory deficits noted Sensorium / Orientation: awake and alert Speech: speech normal Psych affect normal Assessment & Plan Assessment/Plan (1) Cellulitis: QUALIFIERS: Laterality: right Site of cellulitis: extremity Site of cellulitis of extremity: lower extremity Qualified Code(s): L03.115 - Cellulitis of right lower limb PLAN: 1. Right upper medial thigh cellulitis with inguinal lymphadenopathy -CT reading 3 x 1.5 cm nondrainable abscess. -Redness improved today when compared to initial skin markings made upon presentation. -Continue Unasyn and vancomycin -Pain management regimen ordered and is effective for patient report 2. History of brain lesion with perioperative seizure -Continue Keppra 3. Hypertension -Continue home medication regimen -Vital signs per protocol, currently stable 4. Acute kidney injury -BUN and creatinine mildly improved from previous lab. 5. Hyperkalemia -Potassium 5.3 today, 3.7 yesterday -We will obtain repeat potassium level DVT prophylaxis-subcu Lovenox This patient was seen by MAURISIO Aleman under the supervision of Dr. Hemphill. Documented by User: Dr. Omar Hemphill, 08/14/21 15:28 Subjective Subjective RLE is feeling much better after initiating abx. Never had cellulitis previously. Objective Data Lab / Micro Data Result Diagrams: 08/14/21 05:44 08/14/21 12:02 Physical Exam Const alert and oriented x3 Skin Skin Narrative: erythema withdrawn for line of demarcation. induration on right medial thing. minimal TTP. Neuro Sensorium / Orientation: awake and alert Assessment & Plan Assessment/Plan (1) Cellulitis: QUALIFIERS: Laterality: right Site of cellulitis: extremity Site of cellulitis of extremity: lower extremity Qualified Code(s): L03.115 - Cellulitis of right lower limb PLAN: Patient seen and examined independently. Data and vitals reviewed. I agree with the above note by the nurse practitioner. 1. RLE cellulitis improving continue amp/SB and vanc, given severity I favor this being MRSA monitor overnight w IV abx and if improving then DC home noted to have a nondrainable abscess on CT. Monitor for changes. Charges/Coding Procedures Hospitalists Procedures: Other Procedure - See Report (nonbillable rounding as pt admitted after midnight. )
[2021-08-14 12:23] LABS: Potassium 4.1 mmol/L (3.5-5.1)
[2021-08-14] MEDS: levETIRAcetam 1,000 MG Tablet 1000 MG PO (12:56)
[2021-08-14] MEDS: cloNIDine HCl 0.1 MG Tablet PO ×2 (12:56→21:33)
[2021-08-14] MEDS: levETIRAcetam 1,000 MG Tablet 2000 MG PO (23:49)
[2021-08-14] MEDS: Montelukast 10 MG Tablet PO (23:49)
[2021-08-15 05:51] LABS: Absolute Lymphocyte Count 0.46 X10^3/uL (0.83-4.51); Absolute Neutrophil Count 7.5 X10^3/uL (2.0-7.7); Basophil# 0.03 X10^3/uL; Basophil% 0.3 % (0-1); Hemoglobin 11.6 g/dL (13.0-16.5); Lymphocyte # 0.46 X10^3/ul (0.83-4.51); Lymphocyte % 5.1 % (19-41); Mean Corp Hgb Conc 34.1 g/dL (32-36); Mean Corpuscular Hgb 28.9 pg (27.0-32.0); Mean Corpuscular Volume 84.8 fL (80-94); Mean Platelet Vol. 10.9 fl (6.2-12.0); Monocyte# 1.02 X10^3/uL; Monocyte% 11.3 % (0-10); NRBC Flagged by Analyzer 0 % (0-5); Neutrophil # 7.45 X10^3/uL (2.7-7.7); Neutrophil % 82.9 % (47-70); POSITIVE DIFFERENTIAL YES; POSITIVE MORPHOLOGY YES; Platelet Count 179 K/mm3 (150-450); RBC Distribution Width CV 13.1 % (11.6-14.6); RBC Distribution Width SD 40.3 fl (35.1-43.9); Red Blood Count 4.01 M/mm3 (4.6-6.2)
[2021-08-15 05:54] LABS: Differential Indicated SCAN CRITERIA MET
[2021-08-15 06:16] LABS: Differential Comment SCANNED
[2021-08-15 06:18] LABS: Anion Gap 10 (5-15); BUN 32 mg/dL (7-18); BUN/Creat Ratio 18.3 RATIO (10-20); Calcium,Total 8.4 mg/dL (8.5-10.1); Chloride 107 mmol/L (98-107); Creatinine, Serum 1.75 mg/dL (0.70-1.30); EST Glomerular Filtration Rate 45 mL/min (>60); Est Glom Filt Rate - Afr Amer 54 mL/min (>60); Estimated Creatinine Clearance 61.32 ml/min; Glucose 181 mg/dL (74-106); Potassium 3.9 mmol/L (3.5-5.1); Sodium Level 138 mmol/L (136-145)
[2021-08-15 07:50] VITALS: BP 142/87; PULSE 128; RESP 16; TEMP 37.2; O2SAT 100
[2021-08-15] MEDS: oxyCODONE 5 MG Tablet PO ×4 (07:55→22:11)
[2021-08-15] MEDS: Acetaminophen 325 MG Tablet 650 MG PO ×3 (07:55→21:08)
[2021-08-15] MEDS: Docusate Sodium 100 MG Capsule PO ×2 (08:00→21:08)
[2021-08-15] MEDS: Enoxaparin 40 MG/0.4 ML Syringe SC (08:01)
[2021-08-15] MEDS: Lisinopril 40 MG Tablet PO (08:01)
[2021-08-15] MEDS: Cholecalciferol (VIT D3) 25 MCG TABLET (1,000 UNITS) 50 MCG PO (08:01)
--- NOTE | 2021-08-15 08:20 | CT_ITS ---
STUDY: CT RIGHT FEMUR WITHOUT CONTRAST REASON FOR EXAM: Right thigh swelling, cellulitis. TECHNIQUE: Transaxial CT imaging of the femur was performed. Sagittal and coronal images were reconstructed. Individualized dose optimization techniques were used for this CT. COMPARISON: CT images 08/14/2021. FINDINGS: Normal femur. There is soft tissue swelling of the right thigh, increased since the prior study. The fluid collection in the anterior medial thigh suggestive of a developing abscess is mildly better defined on the current study (axial images 99-111; sagittal reconstructions 86, 87) measuring 2.6 x 1.2 x 4.0 cm (AP x transverse x length). There is mild fluid in the myocutaneous fascial planes of the thigh (axial images 88-200), increasing since the prior study. There is also mild fluid in the fascial planes of the gracilis and sartorius muscles (axial images 120-124), similar to the prior study. There is a calcification in the fascial plane between the rectus femoris and vastus lateralis muscles (axial images 61-73) as on the prior study measuring 2.4 cm in length. There is no interval change of inguinal lymphadenopathy. CT/Extremity Lower without Contra IMPRESSION: Fluid collection in the anterior medial thigh suggestive of a developing abscess mildly better defined on the current study. Increased soft tissue swelling of the right thigh consistent with cellulitis. Electronically Signed: Franky Briones MD at 10:21 EST Tel , Service support ,
[2021-08-15 08:40] VITALS: BP 166/92; PULSE 128; RESP 20; TEMP 37.6
[2021-08-15] MEDS: 0.9% Normal Saline 1,000 ML 150 ML IV ×2 (09:37→18:00)
[2021-08-15] MEDS: 0.9% Saline Lock 10 ML Syringe IV (09:40)
--- NOTE | 2021-08-15 11:38 | PCM.PN.HOSP ---
Documented by User: Gaye Coleman NP-[place] 08/15/21 11:52 Subjective Subjective Patient seen and examined. Patient lying in bed no distress noted. Area to patient's right thigh appears worse than yesterday. We will repeat CT scan and likely consult surgery for worsening abscess development. Objective Data Objective Data Vital Signs: Vital Signs Temp Pulse Resp BP Pulse Ox 99.6 F H 128 H 20 H 166/92 H 100 08/15/21 08:40 08/15/21 08:40 08/15/21 08:40 08/15/21 08:40 08/15/21 07:50 Oxygen Delivery Method Room Air Weight: 219 lb 2.232 oz Body Mass Index (BMI) 28.1 Intake & Output: Intake and Output for Last 24 Hours 08/13/21 08/14/21 08/15/21 23:59 23:59 23:59 Intake Total 4293 / 4293 499.25 / 499.25 Balance 4293 / 4293 499.25 / 499.25 Lab / Micro Data Result Diagrams: 08/15/21 05:16 08/15/21 05:16 Labs: Laboratory Results - last 24 hr 08/14/21 12:02: Potassium 4.1 08/15/21 05:16: WBC 9.0, RBC 4.01 L, Hgb 11.6 L, Hct 34.0 L, MCV 84.8, MCH 28.9, MCHC 34.1, RDW Std Deviation 40.3, RDW Coeff of [place] 13.1, Plt Count 179, MPV 10.9, Immature Gran % (Auto) 0.400, Neut % (Auto) 82.9 H, Lymph % (Auto) 5.1 L, [place] % (Auto) 11.3 H, Eos % (Auto) 0.0, Baso % (Auto) 0.3, Absolute Neuts (auto) 7.5, Absolute Lymphs (auto) 0.46 L, Nucleated RBC % 0, Differential Comment SCANNED 08/15/21 05:16: Sodium 138, Potassium 3.9, Chloride 107, Carbon Dioxide 21.0, Anion Gap 10, BUN 32 H, Creatinine 1.75 H, Estim Creat Clear Calc 61.32, Est GFR (MDRD) Af Amer 54 L, Est GFR (MDRD) Non-Af 45 L, BUN/Creatinine Ratio 18.3, Glucose 181 H, Calcium 8.4 L Radiography Diagnostic Testing: Radiology Impression Lower Extremity CT 08/15/21 08:20 IMPRESSION: Fluid collection in the anterior medial thigh suggestive of a developing abscess mildly better defined on the current study. Increased soft tissue swelling of the right thigh consistent with cellulitis. Electronically Signed: Franky Briones MD at 10:21 EST Tel , Service support , Physical Exam Const alert, oriented x3 and no apparent distress HEENT head/scalp atraumatic Eyes conjunctivae normal and no scleral icterus Neck full ROM and supple Resp normal respiratory effort, normal air movement and clear to auscultation bilaterally Cardio regular rate, regular rhythm, S1 normal heart sound and S2 normal heart sound GI normal to inspection, nondistended, normoactive bowel sounds, soft to palpation and non-tender Extremity normal to inspection and full ROM General Extremity: edema right lower extremity moderate (Swelling to upper thigh secondary to cellulitis) and bilateral Skin Skin Narrative: erythema exceeding original line of demarcation. induration on right medial thing. minimal TTP. Neuro oriented x3, moves all extremities, no focal motor deficits and no sensory deficits noted Sensorium / Orientation: awake and alert Speech: speech normal Psych affect normal Assessment & Plan Assessment/Plan (1) Cellulitis: QUALIFIERS: Laterality: right Site of cellulitis: extremity Site of cellulitis of extremity: lower extremity Qualified Code(s): L03.115 - Cellulitis of right lower limb (2) Fever: QUALIFIERS: Fever type: due to other condition Qualified Code(s): R50.81 - Fever presenting with conditions classified elsewhere (3) Abscess of right thigh: PLAN: 1. Right upper medial thigh cellulitis with inguinal lymphadenopathy -Repeat CT demonstrates fluid collection in the anterior medial thigh suggestive of a developing abscess mildly better defined on the current study measuring 2.6 x 1.2 x 4.0 cm. There is mild fluid in the myocutaneous fascial planes of the left thigh increasing since the prior study -Will consult general surgery for I&D -Redness worsening today when compared to initial skin markings made upon presentation. -Patient transitioned from Unasyn to Zosyn, continued on vancomycin -Pain management regimen ordered and is effective for patient report 2. History of brain lesion with perioperative seizure -Continue Keppra 3. Hypertension -Continue home medication regimen -Vital signs per protocol, currently stable 4. Acute kidney injury -BUN and creatinine worsened in comparison to prior study, 5. Hyperkalemia -Potassium 5.3 today, 3.7 yesterday -We will obtain repeat potassium level DVT prophylaxis-subcu Lovenox This patient was seen by Gaye Coleman, ROSALBA-C under the supervision of Dr. Hemphill. Documented by User: Dr. Omar Hemphill, DO 08/15/21 14:06 Subjective Subjective chills overnight. right leg feeling worse. Objective Data Lab / Micro Data Result Diagrams: 08/15/21 05:16 08/15/21 05:16 Physical Exam Const Constitutional Narrative: diaphoretic. Skin Skin Narrative: increased induration in right groin. erythema extending beyond the line of demarcation Assessment & Plan Assessment/Plan (1) Abscess of right thigh: PLAN: Patient seen and examined independently. Data and vitals reviewed. I agree with the above note by the nurse practitioner. 1. RLE cellulitis and abscess worse today change to pip/tazo. continue vanc. monitor overnight w IV abx and if improving then DC home repeat CT shows developing abscess in groin reach out to surgery for I+D. Charges/Coding Visit Charges Inpatient E&M: 87896 Subs Hosp L2
[2021-08-15] MEDS: cloNIDine HCl 0.1 MG Tablet PO ×2 (11:57→21:08)
[2021-08-15] MEDS: levETIRAcetam 1,000 MG Tablet 1000 MG PO (11:59)
[2021-08-15 12:00] VITALS: BP 146/104; PULSE 111; RESP 16; TEMP 36.8; O2SAT 98
[2021-08-15 15:28] LABS: Vancomycin, Trough Level 12.8 ug/mL (5.0-15.0)
[2021-08-15 15:30] VITALS: BP 157/103; PULSE 112; RESP 16; TEMP 37; O2SAT 98
--- NOTE | 2021-08-15 15:54 | CON.PCM.SX_ITS ---
Assessment & Plan Assessment/Plan (1) Abscess of right thigh: PLAN: This is a 46-year-old male who presents with a right thigh abscess (specifically medial thigh). Patient has no antecedent history to explain the infection that has developed in his right groin. Specifically he denies any recent external trauma or insect bites to this area. He also has never had an abscess before. However I find it notable that he does have significant hyperglycemia throughout all of his glucose checks this admission. I have c onfirmed with nursing that patient has not received any dextrose in his intravenous fluids. When probed further, he does describe frequent urination leading up to this hospitalization and he has a father with diabetes. At this point his abscess has progressed such that it now requires incision and drainage?CT done today estimates this abscess cavity to measure 2.6 x 1.2 x 4 cm. Given the absence of significant inflammation that may neutralize any local anesthetic and the interest in obtaining bedside ultrasound localization of this cavity, I have recommended operative incision and drainage. Patient is accepting of this recommendation. Unfortunately he has eaten today so we will plan for first thing tomorrow morning. Plan: ?N.p.o. at midnight ?Hemoglobin A1c and UA to perform cursory examination for possible new diabetes diagnosis ?Plan for ultrasound?guided incision and drainage of right thigh abscess with intraoperative cultures. Please obtain rapid Covid screen in anticipation of this procedure HPI Consult Data Date of Consult: 08/15/21 HPI Narrative Reason for Consultation: Developing right thigh abscess HPI Narrative: ENRIQUETA REESE, is a 46 M who presented to [facility] with a complaint of right thigh discomfort and general malaise as well as fever. He states that approximately 1 week ago he experienced discomfort in his right thigh that evolved into progressive redness of the upper portion of that extremity. Initially he blamed this on a pulled muscle but really had not taken part in any activity to explain this injury. He also denies any recent wounds to his right lower extremity or concerns for insect bites. He has no history of staph infections. He has no history of prior abscesses. Also notable among his intake and subsequent labs is a persistent hyperglycemia and evidence of acute kidney injury. Surgery is consulted to evaluate patient for possible incision and drainage of right thigh abscess given the development of a more defined fluid collection on today's CT of the right lower extremity. This fluid collection measures approximately 2.6 x 1.2 x 4 cm. There is also note of a linear calcified object between the heads of the vastus lateralis and rectus femoris. Patient was initially placed on Unasyn with his hospital admission but has been broadened out to vancomycin and Zosyn with the progression of his cellulitis. [facility] Home Medications clonidine HCl 0.1 mg PO BID 07/07/13 [History Last Taken 11/22/17 02:00] lisinopril 40 mg PO DAILY 07/07/13 [History Last Taken 11/22/17 05:10] montelukast 10 mg PO 0000 07/07/13 [History Last Taken 11/22/17 02:00] cetirizine [Zyrtec] 10 mg PO DAILY 03/03/14 [History Last Taken 03/09/14 05:30] zolpidem [Ambien] 10 mg PO QHS 03/03/14 [History Last Taken Unknown] levetiracetam [Keppra] 1,000 mg PO 1200 03/09/14 [History Last Taken 11/22/17 02:00] cholecalciferol (vitamin D3) [Vitamin D3] 2,000 unit PO DAILY 11/18/17 [History Last Taken Unknown] levetiracetam 2,000 mg PO 0000 11/18/17 [History Last Taken Unknown] levetiracetam [Keppra] 2,000 mg PO DAILY 08/14/21 [History Last Taken Unknown] muhlzb-mfanurxs-sqyqhoq [Pertzye] 3 cap PO PRN PRN 08/14/21 [History Last Taken Unknown] dfrtat-hxsrrlxm-brcquuc [Pertzye] 5 cap PO TIDCM 08/14/21 [History Last Taken Unknown] Allergy/AdvReac Type Severity Reaction Status Date / Time No Known Allergies Allergy Verified 08/13/21 23:38 Social History Smoking Status: Former smoker Physical Exam Const alert, oriented x3 and no apparent distress Constitutional Narrative: Appears uncomfortable with movement Extremity Extremity Narrative: Patient with significant cellulitis that is extending from the right groin to just above the right knee along the inner thigh. The skin in the upper medial thigh is woody and indurated and there appears to be pinpoint sinus tracts that are white in color but there is no active drainage. The cellulitis is blanchable with palpation and patient remarks there is significant tenderness with his exam. I am not able to palpate his right femoral artery secondary to the significant edema in the area. Distally I do have palpable do rsalis pedis and posterior tibial pulses. The lateral thighs examined and there is a small (2 cm) scar but no active inflammation. Medially along the ankle there is some bruising but this appears to be a remote injury. Lab / Micro Data Result Diagrams: 08/15/21 05:16 08/15/21 05:16 Labs: Laboratory Results - last 24 hr 08/15/21 05:16: WBC 9.0, RBC 4.01 L, Hgb 11.6 L, Hct 34.0 L, MCV 84.8, MCH 28.9, MCHC 34.1, RDW Std Deviation 40.3, RDW Coeff of [place] 13.1, Plt Count 179, MPV 10.9, Immature Gran % (Auto) 0.400, Neut % (Auto) 82.9 H, Lymph % (Auto) 5.1 L, [place] % (Auto) 11.3 H, Eos % (Auto) 0.0, Baso % (Auto) 0.3, Absolute Neuts (auto) 7.5, Absolute Lymphs (auto) 0.46 L, Nucleated RBC % 0, Differential Comment SCANNED 08/15/21 05:16: Sodium 138, Potassium 3.9, Chloride 107, Carbon Dioxide 21.0, Anion Gap 10, BUN 32 H, Creatinine 1.75 H, Estim Creat Clear Calc 61.32, Est GFR (MDRD) Af Amer 54 L, Est GFR (MDRD) Non-Af 45 L, BUN/Creatinine Ratio 18.3, Glucose 181 H, Calcium 8.4 L 08/15/21 14:37: Vancomycin Trough 12.8 Radiology Impression Lower Extremity CT 08/15/21 08:20 IMPRESSION: Fluid collection in the anterior medial thigh suggestive of a developing abscess mildly better defined on the current study. Increased soft tissue swelling of the right thigh consistent with cellulitis. Electronically Signed: Franky Briones MD at 10:21 EST Tel , Service support , Charges/Coding Visit Charges Inpatient E&M: 78744 Init Hosp L2
[2021-08-15 16:14] LABS: Hemoglobin A1c 6.3 % (3.8-5.6)
[2021-08-15 16:29] LABS: Bacteria 0 SEEN /hpf (None Seen); Mucous, Urine 0 SEEN /hpf (<or=2+); Squamous Epithelial Cells - UA 0 SEEN /hpf (0-5)
[2021-08-15 17:06] LABS: Color, Urine Yellow (Yellow); Glucose, Dipstick 250 mg/dl (Normal); Ketone-Dipstick 5 mg/dl (Negative); Leukocyte Esterase-Dipstick Negative /ul (Negative); Nitrite-Dipstick Negative (Negative); Occult Blood-Urine 25 /ul (Negative); Protein-Dipstick 30 mg/dl (Negative); Specific Gravity, Urine 1.015 (1.002-1.030); Urine Bilirubin Dipstick Negative (Negative); Urine Clarity Sl. Cloudy (Clear); Urine Urobilinogen Normal (Normal)
[2021-08-15 17:17] LABS: Red Blood Cells-Urine 0-5 SEEN /hpf (0-5); White Blood Cells 0-5 SEEN /hpf (0-5)
[2021-08-15 17:18] LABS: Amorphous Sediment 1+
[2021-08-15] MEDS: Insulin Lispro 100 UNIT/ML INSULN.PEN SC (18:10)
[2021-08-15 18:25] LABS: Bedside Glucose 200 mg/dL (70-110)
[2021-08-15] MEDS: Acetaminophen/Butalbital/Caffe 1 Tablet PO (19:28)
--- NOTE | 2021-08-15 20:44 | PCM.RX.CS ---
Consult Pharmacy has been consulted to manage selected antiobiotic: Vancomycin Type of Consult: Follow-up Suspected Infection: Skin/Soft tissue Labs: Sodium 138 mmol/L (136-145) 08/15/21 05:16 Potassium 3.9 mmol/L (3.5-5.1) 08/15/21 05:16 Chloride 107 mmol/L (98-107) 08/15/21 05:16 Carbon Dioxide 21.0 mmol/L (21.0-32.0) 08/15/21 05:16 Anion Gap 10 (5-15) 08/15/21 05:16 BUN 32 mg/dL (7-18) H 08/15/21 05:16 Creatinine 1.75 mg/dL (0.70-1.30) H 08/15/21 05:16 Est GFR (MDRD) Af Amer 54 mL/min (>60) L 08/15/21 05:16 Est GFR (MDRD) Non-Af 45 mL/min (>60) L 08/15/21 05:16 BUN/Creatinine Ratio 18.3 RATIO (10-20) 08/15/21 05:16 Glucose 181 mg/dL (74-106) H 08/15/21 05:16 Vancomycin Trough 12.8 ug/mL (5.0-15.0) 08/15/21 14:37 Microbiology: Microbiology 08/15/21 17:45 Interface Orders SARS-CoV-2 Antigen (Rapid) - Final Goal Trough: 15-20 mcg/mL Pharmacy Plan for Drug Dosing: VANCOMYCIN LEVEL RECEIVED Current Vancomycin Dose: 1250mg q12h (03,15) Number of Doses Received: 1500mg x1, 1250mg x2 Vancomycin Level: 12.8 Hours Since Last Dose: 11.5 Renal Function: SrCr 1.75 Renal Function Trend: SrCr increasing Lab/Micro: Vancomycin Plan/Comments: due to rising SrCr and pt not yet at steady state, recommend continuing current dose of Vancomycin 1250mg q12h and checking trough before the 4th dose Pending Level: 08/17/21 at 1430 Pharmacy Service will continue to monitor and adjust dosing as required. Follow-Up Labs: Trough Vancomycin - 08/17/21 at 1430
[2021-08-15 21:05] VITALS: BP 151/117; PULSE 106; RESP 17; TEMP 36.9; O2SAT 98
[2021-08-15] MEDS: Montelukast 10 MG Tablet PO (21:10)
[2021-08-15] MEDS: levETIRAcetam 1,000 MG Tablet 2000 MG PO (21:10)
[2021-08-15 21:25] VITALS: BMI 28.1
[2021-08-15 21:25] LABS: Bedside Glucose 183 mg/dL (70-110)
[2021-08-15 23:00] VITALS: BP 144/100; PULSE 104; RESP 18; TEMP 36.5; O2SAT 98
[2021-08-15] MEDS: Zolpidem Tartrate 5 MG Tablet PO (23:04)
[2021-08-16] VITALS (10 sets, daily range): BP systolic 141–174; BP diastolic 79–102; PULSE 93–123; RESP 16–18; TEMP 36.6–38.3; O2SAT 95–100; BMI 29.5
[2021-08-16] MEDS: 0.9% Normal Saline 1,000 ML 150 ML IV ×4 (01:29→23:39)
--- NOTE | 2021-08-16 05:00 | EKG12_ITS ---
Test Reason : PRE -OP Blood Pressure : / mmHG Vent. Rate : 109 BPM Atrial Rate : 109 BPM P-R Int : 160 ms QRS Dur : 090 ms QT Int : 324 ms P-R-T Axes : 043 014 017 degrees QTc Int : 436 ms Sinus tachycardia Otherwise normal ECG When compared with ECG of 18-NOV-2017 13:53, Vent. rate has increased BY 50 BPM Confirmed by MARJAN RODRIGUEZ, DASH ([id number]), associate editor MARINA CORONEL [id number]) on 08/16/2021 1:57:58 PM Referred By: SREEKANTH Confirmed By:DASH PHILLIP MD
[2021-08-16 05:21] LABS: Absolute Lymphocyte Count 0.67 X10^3/uL (0.83-4.51); Absolute Neutrophil Count 9.2 X10^3/uL (2.0-7.7); Basophil# 0.07 X10^3/uL; Basophil% 0.6 % (0-1); Eosinophil# 0.01 X10^3/uL; Eosinophils% 0.1 % (0-5); Hematocrit 32.5 % (40-54); Hemoglobin 10.5 g/dL (13.0-16.5); Lymphocyte # 0.67 X10^3/ul (0.83-4.51); Lymphocyte % 5.9 % (19-41); Mean Corp Hgb Conc 32.3 g/dL (32-36); Mean Corpuscular Volume 86.7 fL (80-94); Mean Platelet Vol. 10.3 fl (6.2-12.0); Monocyte# 1.17 X10^3/uL; Monocyte% 10.3 % (0-10); NRBC Flagged by Analyzer 0 % (0-5); Neutrophil # 9.16 X10^3/uL (2.7-7.7); Neutrophil % 80.3 % (47-70); POSITIVE MORPHOLOGY YES; Platelet Count 212 K/mm3 (150-450); RBC Distribution Width CV 13.2 % (11.6-14.6); RBC Distribution Width SD 41.9 fl (35.1-43.9); Red Blood Count 3.75 M/mm3 (4.6-6.2); White Blood Count 11.4 K/mm3 (4.4-11.0)
[2021-08-16 05:24] LABS: Differential Indicated SCAN CRITERIA MET
[2021-08-16 05:44] LABS: Differential Comment SCANNED
[2021-08-16 05:47] LABS: ALB/GLOB Ratio 0.5 RATIO (0.9-2.4); AST(SGOT) 18 U/L (15-37); Alanine Aminotransfer ALT/SGPT 20 U/L (16-61); Alkaline Phosphatase 68 U/L (45-117); Anion Gap 7 (5-15); BUN 24 mg/dL (7-18); Calcium,Total 8.9 mg/dL (8.5-10.1); Chloride 108 mmol/L (98-107); Creatinine, Serum 1.41 mg/dL (0.70-1.30); EST Glomerular Filtration Rate 57 mL/min (>60); Est Glom Filt Rate - Afr Amer 69 mL/min (>60); Estimated Creatinine Clearance 76.11 ml/min; Globulin 3.8 g/dL (2.2-4.2); Glucose 163 mg/dL (74-106); Protein, Total 5.8 g/dL (6.4-8.2); Sodium Level 138 mmol/L (136-145)
[2021-08-16 05:51] LABS: Bedside Glucose 151 mg/dL (70-110)
--- NOTE | 2021-08-16 06:27 | NURSING ---
report called to ac. Pt left to have surgery. at bedside
--- NOTE | 2021-08-16 06:52 | PCM.PN.BLA ---
Progress Note Seen and examined in the preoperative area. He reports more pain in his right groin and is concerned that there is no blistering in this area. Otherwise there have been no interval developments. He confirms his n.p.o. status. Plan to proceed with incision and drainage under anesthesia this morning.
[2021-08-16] MEDS: Bupivacaine Mpf 0.5% 30 ML VIAL (08:00)
--- NOTE | 2021-08-16 10:06 | PN.HOSP_ITS ---
Documented by User: Gaye Coleman NP-[place] 08/16/21 10:13 Subjective Subjective Patient seen and examined following surgery. Patient lying in bed no distress noted, at bedside. Objective Data Objective Data Vital Signs: Vital Signs Temp Pulse Resp BP Pulse Ox 99.0 F 113 H 18 161/97 H 96 08/16/21 09:30 08/16/21 09:30 08/16/21 09:30 08/16/21 09:30 08/16/21 09:30 Oxygen Delivery Method Room Air Weight: 229 lb 11.547 oz Body Mass Index (BMI) 29.5 Intake & Output: Intake and Output for Last 24 Hours 08/14/21 08/15/21 08/16/21 23:59 23:59 23:59 Intake Total 4293 / 4293 2774.25 / 2774.25 2352 / 2352 Output Total 200 / 200 Balance 4293 / 4293 2774.25 / 2774.25 2152 / 2152 Lab / Micro Data Result Diagrams: 08/16/21 05:04 08/16/21 05:04 Labs: Laboratory Results - last 24 hr 08/15/21 05:16: Hemoglobin A1c 6.3 H 08/15/21 14:37: Vancomycin Trough 12.8 08/15/21 16:04: Urine Color Yellow, Urine Clarity Sl. Cloudy, Urine pH 5.0, Ur Specific [place] 1.015, Urine Protein 30 H, Urine Glucose (UA) 250 H, Urine Ketones 5 H, Urine Occult Blood 25 H, Urine Nitrite Negative, Urine Bilirubin Negative, Urine Urobilinogen Normal, Ur Leukocyte Esterase Negative, Urine RBC 0-5 SEEN, Urine WBC 0-5 SEEN, Ur Squamous Epith Cells 0 SEEN, Amorphous Sediment 1+, Urine Bacteria 0 SEEN, Urine Mucus 0 SEEN 08/15/21 17:51: POC Glucose 200 H 08/15/21 21:19: POC Glucose 183 H 08/16/21 05:04: WBC 11.4 H, RBC 3.75 L, Hgb 10.5 L, Hct 32.5 L, MCV 86.7, MCH 28.0, MCHC 32.3 D, RDW Std Deviation 41.9, RDW Coeff of [place] 13.2, Plt Count 212, MPV 10.3, Immature Gran % (Auto) 2.800 H, Neut % (Auto) 80.3 H, Lymph % (Auto) 5.9 L, [place] % (Auto) 10.3 H, Eos % (Auto) 0.1, Baso % (Auto) 0.6, Absolute Neuts (auto) 9.2 H, Absolute Lymphs (auto) 0.67 L, Nucleated RBC % 0, Differential Comment SCANNED 08/16/21 05:04: Sodium 138, Potassium 4.0, Chloride 108 H, Carbon Dioxide 23.0, Anion Gap 7, BUN 24 H, Creatinine 1.41 H, Estim Creat Clear Calc 76.11, Est GFR (MDRD) Af Amer 69, Est GFR (MDRD) Non-Af 57 L, BUN/Creatinine Ratio 17.0, Glucose 163 H, Calcium 8.9, Total Bilirubin 0.50, AST 18, ALT 20, Alkaline Phosphatase 68, Total Protein 5.8 L, Albumin 2.0 L, Globulin 3.8, Albumin/Globulin Ratio 0.5 L 08/16/21 05:41: POC Glucose 151 H Micro: Microbiology 08/15/21 17:45 Interface Orders SARS-CoV-2 Antigen (Rapid) - Final Radiography Diagnostic Testing: Radiology Impression Lower Extremity CT 08/15/21 08:20 IMPRESSION: Fluid collection in the anterior medial thigh suggestive of a developing abscess mildly better defined on the current study. Increased soft tissue swelling of the right thigh consistent with cellulitis. Electronically Signed: Franky Briones MD at 10:21 EST Tel , Service support , Physical Exam Const alert, oriented x3 and no apparent distress Constitutional Narrative: diaphoretic. HEENT head/scalp atraumatic Eyes conjunctivae normal and no scleral icterus Neck full ROM and supple Resp normal respiratory effort, normal air movement and clear to auscultation bilaterally Cardio regular rate, regular rhythm, S1 normal heart sound and S2 normal heart sound GI normal to inspection, nondistended, normoactive bowel sounds, soft to palpation and non-tender Extremity normal to inspection and full ROM General Extremity: edema right lower extremity moderate (Swelling to upper thigh secondary to cellulitis) and bilateral Skin Skin Narrative: Dressing to right thigh dry and intact, return from PACU. Difficult to assess redness due to application of Betadine. Neuro oriented x3, moves all extremities, no focal motor deficits and no sensory deficits noted Sensorium / Orientation: awake and alert Speech: speech normal Psych affect normal Assessment & Plan Assessment/Plan (1) Abscess of right thigh: (2) Acute kidney injury: PLAN: 1. Right upper medial thigh cellulitis with inguinal lymphadenopathy -Repeat CT demonstrates fluid collection in the anterior medial thigh suggestive of a developing abscess mildly better defined on the current study measuring 2.6 x 1.2 x 4.0 cm. There is mild fluid in the myocutaneous fascial planes of the left thigh increasing since the prior study -Patient underwent incision and drainage of right thigh with Dr. Rojas this morning. -Continue vancomycin and Zosyn -Wound cultures pending -Pain management regimen ordered and is effective for patient report 2. History of brain lesion with perioperative seizure -Continue Keppra 3. Hypertension -Continue home medication regimen -Vital signs per protocol, currently stable 4. Acute kidney injury -BUN and creatinine improved -BMP daily 5. Hyperkalemia -Potassium 4.0 -BMP daily DVT prophylaxis-subcu Lovenox This patient was seen by Gaye Coleman NP-C under the supervision of Dr. Shai dhillon. Documented by User: Dr. Omar Hemphill DO 08/16/21 13:58 Subjective Subjective Back from surgery. Overall feeling better. Objective Data Lab / Micro Data Result Diagrams: 08/16/21 05:04 08/16/21 05:04 Physical Exam Const alert and no apparent distress Skin Skin Narrative: still with right groin induration and surrounding erythema extending distally down leg. Assessment & Plan Assessment/Plan (1) Abscess of right thigh: (2) Cellulitis: QUALIFIERS: Site of cellulitis: extremity Site of cellulitis of extremity: lower extremity Laterality: right Qualified Code(s): L03.115 - Cellulitis of right lower limb (3) Diabetes mellitus, type 2: PLAN: Pt seen and examined independently. Data and vitals reviewed. I agree with the above EDUCATION TRAINER note. 1. Right groin abscess and cellulitis s/p drainage today of groin abscess complicated by underlying DM2 continue pip/tazo and vanc deescalate pending Cx 2. DM2 new diagnosis, but likely chronic a1C 6.3 exacerbated by underlying infection start metformin 500 daily nutrition for dietary recs (spouse had many dietary questions) 3. AMANDA resolving monitor Charges/Coding Visit Charges Inpatient E&M: 28039 Subs Hosp L2
[2021-08-16] MEDS: Docusate Sodium 100 MG Capsule PO ×2 (10:37→22:14)
[2021-08-16] MEDS: Enoxaparin 40 MG/0.4 ML Syringe SC (10:37)
[2021-08-16] MEDS: Lisinopril 40 MG Tablet PO (10:37)
[2021-08-16] MEDS: oxyCODONE 5 MG Tablet PO ×4 (10:37→23:39)
[2021-08-16] MEDS: Cholecalciferol (VIT D3) 25 MCG TABLET (1,000 UNITS) 50 MCG PO (10:37)
[2021-08-16] MEDS: 0.9% Saline Lock 10 ML Syringe IV (10:38)
[2021-08-16] MEDS: Acetaminophen 325 MG Tablet 650 MG PO ×2 (10:38→18:15)
[2021-08-16] MEDS: levETIRAcetam 1,000 MG Tablet 1000 MG PO (12:17)
[2021-08-16] MEDS: Insulin Lispro 100 UNIT/ML INSULN.PEN SC (12:17)
[2021-08-16] MEDS: cloNIDine HCl 0.1 MG Tablet PO ×2 (12:17→22:14)
[2021-08-16 12:26] LABS: Bedside Glucose 154 mg/dL (70-110)
--- NOTE | 2021-08-16 13:16 | PCM.RX.CS ---
Consult Pharmacy has been consulted to manage selected antiobiotic: Vancomycin Type of Consult: Follow-up Suspected Infection: Skin/Soft tissue Prior Doses of Antibiotics Received/Current Regimen: 1250mg iv q12h Labs: Sodium 138 mmol/L (136-145) 08/16/21 05:04 Potassium 4.0 mmol/L (3.5-5.1) 08/16/21 05:04 Chloride 108 mmol/L (98-107) H 08/16/21 05:04 Carbon Dioxide 23.0 mmol/L (21.0-32.0) 08/16/21 05:04 Anion Gap 7 (5-15) 08/16/21 05:04 BUN 24 mg/dL (7-18) H 08/16/21 05:04 Creatinine 1.41 mg/dL (0.70-1.30) H 08/16/21 05:04 Est GFR (MDRD) Af Amer 69 mL/min (>60) 08/16/21 05:04 Est GFR (MDRD) Non-Af 57 mL/min (>60) L 08/16/21 05:04 BUN/Creatinine Ratio 17.0 RATIO (10-20) 08/16/21 05:04 Glucose 163 mg/dL (74-106) H 08/16/21 05:04 Vancomycin Trough 12.8 ug/mL (5.0-15.0) 08/15/21 14:37 Microbiology: Microbiology 08/15/21 17:45 Interface Orders SARS-CoV-2 Antigen (Rapid) - Final Weight used for dosin.2 kg Estimated Creatinine Clearance: ~84ml/min Goal Trough: 15-20 mcg/mL Pharmacy Plan for Drug Dosing: Cr improved from 1.75 to 1.41. CrCl now calculated to be ~84ml/min for adjusted body weight of 90.9kg. Will increase dose to 1500mg iv q12h per protocol. A trough level is ordered for 08.18.21 before 4th dose of new regimen. Pharmacy Service will continue to monitor and adjust dosing as required. Follow-Up Labs: Trough Vancomycin - 08.18.21 @0230 before 0300 dose
[2021-08-16] MEDS: metFORMIN HCl 500 MG Tablet PO (16:37)
[2021-08-16 17:10] LABS: Bedside Glucose 141 mg/dL (70-110)
--- NOTE | 2021-08-16 20:45 | OP.PCM_ITS ---
Report of Operation Date of Procedure: 08/16/21 Pre-Operative Diagnosis: Right thigh abscess with progressive cellulitis Post-Operative Diagnosis: Same Surgery/Procedure Performed:: Incision and drainage Description of Surgical Findings:: ?Subcutaneous abscess cavity measuring: Distally: 6 cm, proximally: 4.5 cm, medially: 5 cm, laterally: 4 cm ?Surgical wound 2.5 cm x 2.5 cm Surgeon: Nilson Rojas automobile designer: Ruddy Benito Type of Anesthesia: General/Supplemental Anesthesiologist: Omar Catherine Specimen's removed: Wound/tissue cultures Estimated Blood Loss (mL): 75 Description of Procedure: After appropriate identification in the preoperative holding area and confirmation of consents, our patient was brought to the operating room where he was positioned supine on the operating room table. There he underwent induction of general endotracheal anesthetic. His right lower extremity and groin were prepped and draped in usual sterile fashion. A formal timeout was conducted to confirm the patient and the procedure to be performed. A ultrasound exam was used to localize the area of subcutaneous fluid collection. An 18-gauge needle was then used as a finder needle to confirm purulence. Purulent fluid was noted with placement of this needle and so I centered my initial incision on this needle. Both the skin and subcutaneous tissue were incised down to the muscular fascia. Electrocautery was employed to assist with hemostasis. A circular incision was then created by taking additional skin and subcutaneous tissue superiorly and inferiorly so that our final skin defect was 2.5 cm in diameter. A moderate to large volume of luz purulent fluid emanated from the wound. A small sample of this was cultured for aerobic culture. Blunt dissection was used to disrupt any and all loculations that were palpated. The wound was then irrigated and additional cultures were taken of the wound base. Electrocautery was selectively used to obtain hemostasis and a clean dry gauze was packed in the wound so that manual pressure could be meaningfully employed to further assist with this hemostasis given the degree of undermining. Wound measurements were taken. A total of 10 mL of half percent bupivacaine were locally infiltrated to assist with postoperative analgesia. Then the wound cavity was packed with 4 containers of half-inch iodoform gauze tied together. Clean gauze were used as fluffs and placed atop the wound opening to collect drainage. Lastly an ABD dressing was placed for added absorbency with this drainage. This dressing ensemble was taped into place and the patient was then awakened from his anesthetic without event. He was transferred to PACU for ongoing recovery. Complications None Admit VTE Documentation VTE Mechan Device Prophylaxis: SCD's Procedures Integumentary 10xxx: [id number] Drainage of skin abscess
[2021-08-16 22:31] LABS: Bedside Glucose 102 mg/dL (70-110)
[2021-08-16] MEDS: levETIRAcetam 1,000 MG Tablet 2000 MG PO (23:38)
[2021-08-16] MEDS: Montelukast 10 MG Tablet PO (23:39)
[2021-08-16] MEDS: Zolpidem Tartrate 5 MG Tablet PO (23:39)
[2021-08-17] MEDS: Acetaminophen 325 MG Tablet 650 MG PO ×3 (00:20→17:38)
[2021-08-17 05:00] VITALS: BP 159/98; PULSE 101; RESP 16; TEMP 37.2; O2SAT 94
[2021-08-17 05:37] LABS: Absolute Lymphocyte Count 0.74 X10^3/uL (0.83-4.51); Absolute Neutrophil Count 6.5 X10^3/uL (2.0-7.7); Basophil# 0.03 X10^3/uL; Basophil% 0.3 % (0-1); Eosinophil# 0.01 X10^3/uL; Eosinophils% 0.1 % (0-5); Hematocrit 36.8 % (40-54); Hemoglobin 12.4 g/dL (13.0-16.5); Lymphocyte # 0.74 X10^3/ul (0.83-4.51); Lymphocyte % 8.4 % (19-41); Mean Corp Hgb Conc 33.7 g/dL (32-36); Mean Corpuscular Hgb 28.8 pg (27.0-32.0); Mean Corpuscular Volume 85.4 fL (80-94); Mean Platelet Vol. 10.5 fl (6.2-12.0); Monocyte# 1.09 X10^3/uL; Monocyte% 12.4 % (0-10); NRBC Flagged by Analyzer 0 % (0-5); Neutrophil # 6.52 X10^3/uL (2.7-7.7); Neutrophil % 74.2 % (47-70); POSITIVE MORPHOLOGY YES; Platelet Count 229 K/mm3 (150-450); RBC Distribution Width CV 13.3 % (11.6-14.6); RBC Distribution Width SD 42.3 fl (35.1-43.9); Red Blood Count 4.31 M/mm3 (4.6-6.2); White Blood Count 8.8 K/mm3 (4.4-11.0)
[2021-08-17 05:40] LABS: Differential Indicated SCAN CRITERIA MET
[2021-08-17 05:54] LABS: Differential Comment SCANNED
[2021-08-17 06:23] LABS: Anion Gap 9 (5-15); BUN 21 mg/dL (7-18); BUN/Creat Ratio 16.2 RATIO (10-20); Calcium,Total 8.5 mg/dL (8.5-10.1); Chloride 112 mmol/L (98-107); EST Glomerular Filtration Rate 63 mL/min (>60); Est Glom Filt Rate - Afr Amer 76 mL/min (>60); Estimated Creatinine Clearance 82.55 ml/min; Glucose 115 mg/dL (74-106); Sodium Level 137 mmol/L (136-145)
[2021-08-17 06:45] LABS: Bedside Glucose 126 mg/dL (70-110)
--- NOTE | 2021-08-17 08:00 | PCM.PN.SRG ---
Subjective Subjective Patient seen and examined in AM rounds. He is found sitting upright in bed attempting to urinate. He states that his leg feels much better?especially after placing some pillows underneath his right knee. Nursing did change the outer dressing last evening, but otherwise there were no acute events overnight. Objective Data Objective Data Vital Signs: Vital Signs Temp Pulse Resp BP Pulse Ox 98.9 F 101 H 16 159/98 H 94 08/17/21 05:00 08/17/21 05:00 08/17/21 05:00 08/17/21 05:00 08/17/21 05:00 Oxygen Delivery Method Room Air Weight: 229 lb 11.547 oz Body Mass Index (BMI) 29.5 Intake & Output: Intake and Output for Last 24 Hours 08/15/21 08/16/21 08/17/21 23:59 23:59 23:59 Intake Total 2774.25 / 2774.25 5772 / 5772 1020 / 1020 Output Total 1800 / 1800 450 / 450 Balance 2774.25 / 2774.25 3972 / 3972 570 / 570 Lab / Micro Data Result Diagrams: 08/17/21 05:14 08/17/21 05:14 Labs: Laboratory Results - last 24 hr 08/16/21 12:16: POC Glucose 154 H 08/16/21 16:44: POC Glucose 141 H 08/16/21 22:12: POC Glucose 102 08/17/21 05:14: WBC 8.8, RBC 4.31 L, Hgb 12.4 L, Hct 36.8 L, MCV 85.4, MCH 28.8, MCHC 33.7, RDW Std Deviation 42.3, RDW Coeff of [place] 13.3, Plt Count 229, MPV 10.5, Immature Gran % (Auto) 4.600 H, Neut % (Auto) 74.2 H, Lymph % (Auto) 8.4 L, [place] % (Auto) 12.4 H, Eos % (Auto) 0.1, Baso % (Auto) 0.3, Absolute Neuts (auto) 6.5, Absolute Lymphs (auto) 0.74 L, Nucleated RBC % 0, Differential Comment SCANNED 08/17/21 05:14: Sodium 137, Potassium 4.0, Chloride 112 H, Carbon Dioxide 16.0 L, Anion Gap 9, BUN 21 H, Creatinine 1.30, Estim Creat Clear Calc 82.55, Est GFR (MDRD) Af Amer 76, Est GFR (MDRD) Non-Af 63, BUN/Creatinine Ratio 16.2, Glucose 115 H, Calcium 8.5 08/17/21 06:35: POC Glucose 126 H Micro: Microbiology 08/16/21 08:00 Wound - Leg, Right Gram Stain - Final 08/16/21 08:00 Tissue - Leg, Right Gram Stain - Final 08/15/21 17:45 Interface Orders SARS-CoV-2 Antigen (Rapid) - Final Physical Exam Const oriented x3 and no apparent distress Extremity Extremity Narrative: Patient's extremity was repacked at bedside after administration of one-time dose IV narcotic. The margin of erythema/cellulitis has regressed proximally by approximately 15 to 20 cm. There is still blanchable erythema proximally in the patient's groin with woody induration. In packing the wound, I found no evidence of additional loculations as a bluntly/digitally probed the wound cavity. There is no significant drainage from the wound and no bleeding. Assessment & Plan Assessment/Plan (1) Abscess of right thigh: PLAN: Postoperative day 1 from incision and drainage of right thigh abscess. Patient required IV pain medication for dressing change today. However, anticipate his discomfort from this wound will get better day today as the inflammatory component improves. I did share with both him and his spouse the expectations for wound care once he is discharged home and they informed me that a friend of the family will likely be taking on this wound care duty. The inspection of the wound today during dressing change was reassuring as there has been significant regression of the patient's inflammation in this area and there is no evidence of undrained fluid collections. Furthermore, the patient's laboratory seem to have responded well to yesterday's procedure. At the same sort of incremental improvement is made in the patient's clinical picture over the next day, he may be eligible for discharge as early as tomorrow from a surgical standpoint. We will plan to perform another dressing change at bedside tomorrow to assess. Charges/Coding Visit Charges Inpatient E&M: 28018 Subs Hosp L2
--- NOTE | 2021-08-17 08:11 | WOUNDNOTE ---
Was asked to see patient for I&D to the right thigh. Dr Rojas performed the I&D yesterday. orders for packing to stay in place until assessed by Dr Rojas. dressing is intact at this time. will assess with Dr Rojas later today. pt denies needs at this time. present at bedside and does state that she will not be able to do the packing at home. states she does have a friend that will be able to assist with dressing changes. will discuss with Dr Rojas. unsure of plan for wound care at this time.
[2021-08-17] MEDS: oxyCODONE 5 MG Tablet PO ×4 (08:54→22:00)
[2021-08-17] MEDS: 0.9% Normal Saline 1,000 ML 150 ML IV ×3 (08:55→23:26)
[2021-08-17] MEDS: metFORMIN HCl 500 MG Tablet PO (08:57)
[2021-08-17] MEDS: Cholecalciferol (VIT D3) 25 MCG TABLET (1,000 UNITS) 50 MCG PO (08:58)
[2021-08-17] MEDS: Lisinopril 40 MG Tablet PO (08:58)
[2021-08-17] MEDS: Docusate Sodium 100 MG Capsule PO ×2 (09:02→21:36)
[2021-08-17] MEDS: Enoxaparin 40 MG/0.4 ML Syringe SC (09:02)
[2021-08-17 09:06] VITALS: BP 181/99; PULSE 103; RESP 16; TEMP 36.9; O2SAT 99
--- NOTE | 2021-08-17 09:45 | PN.HOSP_ITS ---
Documented by User: Juan Luis DOMINGO 08/17/21 09:56 Subjective Subjective Patient is a 46-year-old male comfortably resting in bed, alert and orient x3. Patient reports that his right lower extremity pain/discomfort have improved since surgery, although patient reports still feeling a little groggy. Denies development of any new symptoms overnight. Does not appear in acute distress. Objective Data Objective Data Vital Signs: Vital Signs Temp Pulse Resp BP Pulse Ox 98.5 F 103 H 16 181/99 H 99 08/17/21 09:06 08/17/21 09:06 08/17/21 09:06 08/17/21 09:06 08/17/21 09:06 Oxygen Delivery Method Room Air Weight: 229 lb 11.547 oz Body Mass Index (BMI) 29.5 Intake & Output: Intake and Output for Last 24 Hours 08/15/21 08/16/21 08/17/21 23:59 23:59 23:59 Intake Total 2774.25 / 2774.25 5772 / 5772 1630 / 1630 Output Total 1800 / 1800 650 / 650 Balance 2774.25 / 2774.25 3972 / 3972 980 / 980 Lab / Micro Data Result Diagrams: 08/17/21 05:14 08/17/21 05:14 Labs: Laboratory Results - last 24 hr 08/16/21 12:16: POC Glucose 154 H 08/16/21 16:44: POC Glucose 141 H 08/16/21 22:12: POC Glucose 102 08/17/21 05:14: WBC 8.8, RBC 4.31 L, Hgb 12.4 L, Hct 36.8 L, MCV 85.4, MCH 28.8, MCHC 33.7, RDW Std Deviation 42.3, RDW Coeff of [place] 13.3, Plt Count 229, MPV 10.5, Immature Gran % (Auto) 4.600 H, Neut % (Auto) 74.2 H, Lymph % (Auto) 8.4 L , [place] % (Auto) 12.4 H, Eos % (Auto) 0.1, Baso % (Auto) 0.3, Absolute Neuts (auto) 6.5, Absolute Lymphs (auto) 0.74 L, Nucleated RBC % 0, Differential Comment SCANNED 08/17/21 05:14: Sodium 137, Potassium 4.0, Chloride 112 H, Carbon Dioxide 16.0 L , Anion Gap 9, BUN 21 H, Creatinine 1.30, Estim Creat Clear Calc 82.55, Est GFR (MDRD) Af Amer 76, Est GFR (MDRD) Non-Af 63, BUN/Creatinine Ratio 16.2, Glucose 115 H, Calcium 8.5 08/17/21 06:35: POC Glucose 126 H Micro: Microbiology 08/16/21 08:00 Wound - Leg, Right Gram Stain - Final 08/16/21 08:00 Tissue - Leg, Right Gram Stain - Final 08/15/21 17:45 Interface Orders SARS-CoV-2 Antigen (Rapid) - Final Physical Exam Const alert, oriented x3 and no apparent distress HEENT head/scalp atraumatic and moist oral mucous membranes Head and Scalp: normocephalic Eyes PERRL, EOMs intact bilaterally and conjunctivae normal Neck no lymphadenopathy, supple and no JVD Resp normal respiratory effort, no retractions and no use of accessory muscles Cardio regular rhythm Rate: tachycardic GI normal to inspection, nondistended, normoactive bowel sounds, soft to palpation and non-tender Extremity Extremity Narrative: Proximal RLE warm to touch with induration of the medial thigh. Skin Skin Narrative: See extremity. Neuro Sensorium / Orientation: oriented to time Psych affect normal Assessment & Plan Assessment/Plan (1) Abscess of right thigh: (2) Cellulitis: QUALIFIERS: Laterality: right Site of cellulitis: extremity Site of cellulitis of extremity: lower extremity Qualified Code(s): L03.115 - Cellulitis of right lower limb PLAN: Day 3 Discharge planning: Current plan is for patient to discharge home. 1) Right groin abcess with cellulitis Proximal RLE still warm to touch and with induration of the medial thigh, patient reports subjective improvement after surgery. Patient is afebrile although still tachycardic. CBC does not demonstrate a leukocytosis. Cultures pending. Plan; continue vancomycin and Zosyn, await cultures, general surgery following. 2) HTN Elevated throughout admission, continue lisinopril and clonidine. 3) seizure history Continue Keppra. 4) DM2 Complicates #1. Continue Accu-Cheks with sliding scale insulin, continue Metformin. DVT prophylaxis - Lovenox. Patient seen by Juan Luis Cote, PA-C, under the supervision of Dr. Hemphill. Documented by User: Dr. Omar Hemphill DO 08/17/21 17:07 Objective Data Lab / Micro Data Result Diagrams: 08/17/21 05:14 08/17/21 05:14 Charges/Coding Addendum Addendum: Patient seen and examined independently. Data and vitals reviewed. I agree with the above note by the physician medical assistant per diem. Overall better and patient is feeling better. Exam: Patient is no acute distress and afebrile. No diaphoresis. Decreased induration of the erythema the proximal leg. Did not take down the dressing. Assessment and plan: 1. Right lower extremity cellulitis and abscess. Overall improving. Status post incision and drainage of a very large abscess. Culture thus far growing out staph aureus. Suspect MRSA given the rapid onset but will continue with Pipracil/tazobactam as well as vancomycin. Visit Charges Inpatient E&M: 44981 Subs Hosp L2
[2021-08-17] MEDS: cloNIDine HCl 0.1 MG Tablet PO ×2 (11:32→21:36)
[2021-08-17] MEDS: levETIRAcetam 1,000 MG Tablet 1000 MG PO (11:33)
[2021-08-17] MEDS: Acetaminophen/Butalbital/Caffe 1 Tablet PO (11:34)
[2021-08-17 11:41] LABS: Bedside Glucose 143 mg/dL (70-110)
[2021-08-17] MEDS: HYDROmorphone 0.5 MG/0.5 ML SYRINGE IV (12:25)
[2021-08-17] MEDS: 0.9% Saline Lock 10 ML Syringe IV (12:27)
--- NOTE | 2021-08-17 12:45 | WOUNDNOTE ---
wound photo: right medial upper thigh
[2021-08-17 13:39] VITALS: BP 124/107; PULSE 102; RESP 16; TEMP 36.9; O2SAT 100
[2021-08-17] MEDS: Ondansetron 4 MG/2 ML Vial IV (14:17)
[2021-08-17 16:20] LABS: Bedside Glucose 92 mg/dL (70-110)
[2021-08-17 20:00] VITALS: BP 175/99; PULSE 90; RESP 16; TEMP 37.1; O2SAT 100
[2021-08-17 23:15] LABS: Bedside Glucose 106 mg/dL (70-110)
[2021-08-17] MEDS: Calcium Carbonate 500 MG Tablet PO (23:26)
[2021-08-18] VITALS (7 sets, daily range): BP systolic 138–158; BP diastolic 52–122; PULSE 57–92; RESP 16–18; TEMP 36.7–37.4; O2SAT 97–100
[2021-08-18] MEDS: Zolpidem Tartrate 5 MG Tablet PO (00:35)
[2021-08-18] MEDS: levETIRAcetam 1,000 MG Tablet 2000 MG PO (00:35)
[2021-08-18] MEDS: Montelukast 10 MG Tablet PO (00:36)
[2021-08-18 03:05] LABS: Vancomycin, Trough Level 14.9 ug/mL (5.0-15.0)
--- NOTE | 2021-08-18 03:17 | PCM.RX.CS ---
Consult Pharmacy has been consulted to manage selected antiobiotic: Vancomycin Type of Consult: Follow-up Suspected Infection: Skin/Soft tissue Prior Doses of Antibiotics Received/Current Regimen: Medications Vancomycin HCl 1,500 mg/ (Sodium Chloride) 530 mls @ 250 mls/hr IV Q12H DANIEL Last Admin: 08/17/21 17:38 Dose: Infused Labs: Sodium 137 mmol/L (136-145) 08/17/21 05:14 Potassium 4.0 mmol/L (3.5-5.1) 08/17/21 05:14 Chloride 112 mmol/L (98-107) H 08/17/21 05:14 Carbon Dioxide 16.0 mmol/L (21.0-32.0) L 08/17/21 05:14 Anion Gap 9 (5-15) 08/17/21 05:14 BUN 21 mg/dL (7-18) H 08/17/21 05:14 Creatinine 1.30 mg/dL (0.70-1.30) 08/17/21 05:14 Est GFR (MDRD) Af Amer 76 mL/min (>60) 08/17/21 05:14 Est GFR (MDRD) Non-Af 63 mL/min (>60) 08/17/21 05:14 BUN/Creatinine Ratio 16.2 RATIO (10-20) 08/17/21 05:14 Glucose 115 mg/dL (74-106) H 08/17/21 05:14 Vancomycin Trough 14.9 ug/mL (5.0-15.0) 08/18/21 02:40 Microbiology: Microbiology 08/16/21 08:00 Wound - Leg, Right Gram Stain - Final 08/16/21 08:00 Wound - Leg, Right Wound Culture - Preliminary Staphylococcus aureus 08/16/21 08:00 Tissue - Leg, Right Gram Stain - Final 08/15/21 17:45 Interface Orders SARS-CoV-2 Antigen (Rapid) - Final Weight used for dosin.2 kg Estimated Creatinine Clearance: 83 Goal Trough: 15-20 mcg/mL Pharmacy Plan for Drug Dosing: Vancomycin trough level of 14.9 was just under the target range of 15-20. It was drawn 11.3 hours after previous dose. With some continuing fluctuation of SCr levels we will continue with the 1500mg q12h dosing, and will re-draw a trough 08/20/21. Pharmacy Service will continue to monitor and adjust dosing as required. Follow-Up Labs: Trough Vancomycin Labs to be done on [date and time ordered]: 08/20/21 @6299
[2021-08-18] MEDS: oxyCODONE 5 MG Tablet PO ×4 (03:27→20:07)
[2021-08-18] MEDS: 0.9% Normal Saline 1,000 ML 150 ML IV ×2 (06:15→13:00)
[2021-08-18 06:24] LABS: Hematocrit 28.9 % (40-54); Hemoglobin 9.5 g/dL (13.0-16.5); Mean Corp Hgb Conc 32.9 g/dL (32-36); Mean Corpuscular Hgb 28.4 pg (27.0-32.0); Mean Corpuscular Volume 86.3 fL (80-94); Mean Platelet Vol. 10.6 fl (6.2-12.0); POSITIVE COUNT YES; POSITIVE DIFFERENTIAL YES; POSITIVE MORPHOLOGY YES; Platelet Count 228 K/mm3 (150-450); RBC Distribution Width CV 13.1 % (11.6-14.6); RBC Distribution Width SD 41.4 fl (35.1-43.9); Red Blood Count 3.35 M/mm3 (4.6-6.2); White Blood Count 9.8 K/mm3 (4.4-11.0)
[2021-08-18 06:31] LABS: Differential Indicated MANUAL DIFF
[2021-08-18 06:50] LABS: Bedside Glucose 146 mg/dL (70-110)
[2021-08-18 06:51] LABS: Total Cells Counted 100 (MANUAL DIFF)
[2021-08-18 06:52] LABS: Anion Gap 8 (5-15); BUN 18 mg/dL (7-18); BUN/Creat Ratio 17.1 RATIO (10-20); Chloride 111 mmol/L (98-107); Creatinine, Serum 1.05 mg/dL (0.70-1.30); EST Glomerular Filtration Rate 81 mL/min (>60); Est Glom Filt Rate - Afr Amer 98 mL/min (>60); Estimated Creatinine Clearance 102.21 ml/min; Glucose 137 mg/dL (74-106); Lymphocyte 5 % (19-41); Myelocyte 2 % (0-0); Neutrophil-Band 9 % (0-5); Neutrophil-Segmented 74 % (47-70); Potassium 3.8 mmol/L (3.5-5.1); Sodium Level 139 mmol/L (136-145)
[2021-08-18 06:53] LABS: Monocyte 10 % (0-10); Platelet Estimate ADEQUATE (ADEQ); Red Cell Morphology NORM C+C NORMAL (NORM C&C)
[2021-08-18 06:54] LABS: Absolute Neutrophil Count 8.1 X10^3/uL (2.0-7.7); Neutrophil # 8.09 X10^3/uL (2.7-7.7)
[2021-08-18 06:55] LABS: Absolute Lymphocyte Count 0.49 X10^3/uL (0.83-4.51); Lymphocyte # 0.49 X10^3/ul (0.83-4.51)
[2021-08-18] MEDS: Calcium Carbonate 500 MG Tablet PO ×2 (07:45→16:40)
--- NOTE | 2021-08-18 07:50 | VDLE_ITS ---
Reason For Study: Swelling RIGHT GSV is normal. FV is compressible, spontaneous, phasic, competent and demonstrates normal augmentation. POP V is compressible, spontaneous, phasic, competent and demonstrates normal augmentation. T/P Trunk is compressible. PTV is compressible. RT PerV is compressible. Unable to visualize Rt CFV and prox FV due to abscess removal/bandages. Procedure This is a venous duplex using B-mode, color flow and spectral Doppler. Exam performed portable in patient room. The study was technically limited. A preliminary report was called and/or faxed to [facility]. VL/Venous Duplex US, Unilateral Interpretation Summary There is no evidence of right lower extremity deep vein thrombosis. Right great saphenous vein appears patent and compressible segmentally. Technically limited examination as unable to visualize the right common femoral vein and proximal femoral vein secondary to wound and dressings. Ordering Physician: Omar Hemphill Referring Physician: Patricia Chauhan Performed By: Ofelia Calhoun, KYLECS, RVT
[2021-08-18] MEDS: metFORMIN HCl 500 MG Tablet PO (08:54)
--- NOTE | 2021-08-18 08:54 | PN.SURG_ITS ---
Subjective Subjective Seen and examined during AM rounds. He reports that he is overall feeling better but he has some concerns that his right lower extremity is still so swollen. He states that medicine will plan to obtain a duplex ultrasound to evaluate for a blood clot. He also complains that he broke out into night sweats overnight. Objective Data Objective Data Vital Signs: Vital Signs Temp Pulse Resp BP Pulse Ox 99.0 F 78 16 146/78 H 99 08/18/21 03:21 08/18/21 03:21 08/18/21 03:21 08/18/21 03:21 08/18/21 03:36 Oxygen Delivery Method Room Air Weight: 229 lb 11.547 oz Body Mass Index (BMI) 29.5 Intake & Output: Intake and Output for Last 24 Hours 08/16/21 08/17/21 08/18/21 23:59 23:59 23:59 Intake Total 5772 / 5772 5205 / 5205 1580 / 1580 Output Total 1800 / 1800 1875 / 1875 150 / 150 Balance 3972 / 3972 3330 / 3330 1430 / 1430 Lab / Micro Data Result Diagrams: 08/18/21 05:15 08/18/21 05:15 Labs: Laboratory Results - last 24 hr 08/17/21 11:30: POC Glucose 143 H 08/17/21 16:13: POC Glucose 92 08/17/21 21:43: POC Glucose 106 08/18/21 02:40: Vancomycin Trough 14.9 08/18/21 05:15: WBC 9.8, RBC 3.35 L, Hgb 9.5 L, Hct 28.9 L, MCV 86.3, MCH 28.4, MCHC 32.9, RDW Std Deviation 41.4, RDW Coeff of [place] 13.1, Plt Count 228, MPV 10.6, Neut % (Auto) Not Reportable, Absolute Neuts (auto) 8.1 H, Absolute Lymphs (auto) 0.49 L, Total Counted 100, Neutrophils % (Manual) 74 H, Band Neutrophils % 9 H, Lymphocytes % (Manual) 5 L, Monocytes % (Manual) 10, Myelocytes % 2 H, Diff Path Review January, Platelet Estimate ADEQUATE, RBC Morphology NORM C+C 08/18/21 05:15: Sodium 139, Potassium 3.8, Chloride 111 H, Carbon Dioxide 20.0 L , Anion Gap 8, BUN 18, Creatinine 1.05, Estim Creat Clear Calc 102.21, Est GFR (MDRD) Af Amer 98, Est GFR (MDRD) Non-Af 81, BUN/Creatinine Ratio 17.1, Glucose 137 H, Calcium 8.0 L 08/18/21 06:18: POC Glucose 146 H Micro: Microbiology 08/16/21 08:00 Wound - Leg, Right Gram Stain - Final 08/16/21 08:00 Wound - Leg, Right Wound Culture - Final Meth. resistant Staph. aureus 08/16/21 08:00 Wound - Leg, Right Anaerobic Culture - Final 08/16/21 08:00 Tissue - Leg, Right Gram Stain - Final 08/16/21 08:00 Tissue - Leg, Right Tissue Culture - Final Meth. resistant Staph. aureus 08/16/21 08:00 Tissue - Leg, Right Anaerobic Culture - Preliminary No anaerobic bacteria isolated. 08/15/21 17:45 Interface Orders SARS-CoV-2 Antigen (Rapid) - Final Physical Exam Extremity no calf tenderness Extremity Narrative: Persistent swelling of the right lower extremity with continued progression of cellulitis. Now this area is primarily centered on the right groin where there is still some blanchable erythema. There is a mild amount of drainage to the overlying dressing from yesterday's dressing change. I do not see any propagation of erythema along the abdominal wall or flank. Patient has no restriction of movement with his foot and there is a negative Homans' sign. Assessment & Plan Assessment/Plan (1) Abscess of right thigh: PLAN: Postoperative day 2 from incision and drainage of right thigh abscess. Wound appearance continues to improve. While some asymmetric edema remains for the right lower extremity, I suspect this is primarily due to the localized inflammation in the inner aspect of the right thigh adjacent the patient's femoral vein?thereby obstructing venous return, but it is reasonable to exclude development of a DVT. I understand the duplex ultrasound is pending for this purpose. Patient's operative cultures have returned positive for MRSA. Given that he complains of some persistent systemic signs of infection with night sweats, I am ordering blood cultures to exclude bacteremia. We will plan to redress the wound at bedside today following a shower. I have requested nursing to remove the packing and allow the patient to shower to irrigate the wound cavity before repacking. Charges/Coding Visit Charges Inpatient E&M: 20766 Subs Hosp L2
[2021-08-18] MEDS: Lisinopril 40 MG Tablet PO (08:55)
[2021-08-18] MEDS: Enoxaparin 40 MG/0.4 ML Syringe SC (08:55)
[2021-08-18] MEDS: Docusate Sodium 100 MG Capsule PO ×2 (08:55→23:05)
[2021-08-18] MEDS: Cholecalciferol (VIT D3) 25 MCG TABLET (1,000 UNITS) 50 MCG PO (08:55)
--- NOTE | 2021-08-18 10:21 | PN.HOSP_ITS ---
Documented by User: Juan Luis DOMINGO 08/18/21 10:29 Subjective Subjective Patient is a 46-year-old male comfortably resting in bed, alert and orient x3. Patient reports general improvement in his overall status, although reports that his right lower extremity has become increasingly swollen and tense. Patient denies any discomfort with this. Does not appear in acute distress. Objective Data Objective Data Vital Signs: Vital Signs Temp Pulse Resp BP Pulse Ox 98.1 F 79 16 155/88 H 98 08/18/21 08:54 08/18/21 08:54 08/18/21 08:54 08/18/21 08:54 08/18/21 08:54 Oxygen Delivery Method Room Air Weight: 229 lb 11.547 oz Body Mass Index (BMI) 29.5 Intake & Output: Intake and Output for Last 24 Hours 08/16/21 08/17/21 08/18/21 23:59 23:59 23:59 Intake Total 5772 / 5772 5205 / 5205 1630 / 1630 Output Total 1800 / 1800 1875 / 1875 150 / 150 Balance 3972 / 3972 3330 / 3330 1480 / 1480 Lab / Micro Data Result Diagrams: 08/18/21 05:15 08/18/21 05:15 Labs: Laboratory Results - last 24 hr 08/17/21 11:30: POC Glucose 143 H 08/17/21 16:13: POC Glucose 92 08/17/21 21:43: POC Glucose 106 08/18/21 02:40: Vancomycin Trough 14.9 08/18/21 05:15: WBC 9.8, RBC 3.35 L, Hgb 9.5 L, Hct 28.9 L, MCV 86.3, MCH 28.4, MCHC 32.9, RDW Std Deviation 41.4, RDW Coeff of Al[place] 13.1, Plt Count 228, MPV 10.6, Neut % (Auto) Not Reportable, Absolute Neuts (auto) 8.1 H, Absolute Lymphs (auto) 0.49 L, Total Counted 100, Neutrophils % (Manual) 74 H, Band Neutrophils % 9 H, Lymphocytes % (Manual) 5 L, Monocytes % (Manual) 10, Myelocytes % 2 H, Diff Path Review May , Platelet Estimate ADEQUATE, RBC Morphology NORM C+C 08/18/21 05:15: Sodium 139, Potassium 3.8, Chloride 111 H, Carbon Dioxide 20.0 L , Anion Gap 8, BUN 18, Creatinine 1.05, Estim Creat Clear Calc 102.21, Est GFR (MDRD) Af Amer 98, Est GFR (MDRD) Non-Af 81, BUN/Creatinine Ratio 17.1, Glucose 137 H, Calcium 8.0 L 08/18/21 06:18: POC Glucose 146 H Micro: Microbiology 08/16/21 08:00 Wound - Leg, Right Gram Stain - Final 08/16/21 08:00 Wound - Leg, Right Wound Culture - Final Meth. resistant Staph. aureus 08/16/21 08:00 Wound - Leg, Right Anaerobic Culture - Final 08/16/21 08:00 Tissue - Leg, Right Gram Stain - Final 08/16/21 08:00 Tissue - Leg, Right Tissue Culture - Final Meth. resistant Staph. aureus 08/16/21 08:00 Tissue - Leg, Right Anaerobic Culture - Preliminary No anaerobic bacteria isolated. 08/15/21 17:45 Interface Orders SARS-CoV-2 Antigen (Rapid) - Final Physical Exam Const alert, oriented x3 and no apparent distress HEENT head/scalp atraumatic and moist oral mucous membranes Head and Scalp: normocephalic Eyes PERRL, EOMs intact bilaterally and conjunctivae normal Neck no lymphadenopathy, supple and no JVD Resp normal respiratory effort, no retractions, no use of accessory muscles and clear to auscultation bilaterally Cardio regular rate, regular rhythm, no murmurs and no JVD GI normal to inspection, nondistended, normoactive bowel sounds, soft to palpation and non-tender Extremity Extremity Narrative: Right lower extremity is more swollen and tense than yesterday, especially when compared with the left lower extremity. There is no pain to palpation or erythema of RLE. Skin Skin Narrative: See extremity. Neuro CN's II-XII intact bilaterally Psych affect normal Assessment & Plan Assessment/Plan (1) Abscess of right thigh: (2) Cellulitis: QUALIFIERS: Laterality: right Site of cellulitis: extremity Site of cellulitis of extremity: lower extremity Qualified Code(s): L03.115 - Cellulitis of right lower limb PLAN: Day 4 Discharge planning: Current plan is for patient to discharge home. 1) Right groin abcess with cellulitis POD #2 from I&D of abcess. RLE is more swollen and tense compared to yesterday, although redness and warmth have improved. Patient denies any pain. Will obtain unilateral duplex ultrasound to assess for DVT. Patient vital signs are stable and patient is afebrile. CBC does not demonstrate a leukocytosis. Wound cultures demonstrate MRSA. Fungal and blood cultures pending. Plan; continue vancomycin and Zosyn, await blood and fungal cultures, general surgery following, obtain unilateral duplex ultrasound of the RLE, Gen Surg following. 2) HTN Stable, continue lisinopril and clonidine. 3) seizure history Continue Keppra. 4) DM2 Complicates #1. Continue Accu-Cheks with sliding scale insulin, continue Metformin. DVT prophylaxis - Lovenox. Patient seen by Juan Luis Cote PA-C, under the supervision of Dr. Hemphill. Documented by User: Dr. Omar Hemphill DO 08/18/21 12:19 Objective Data Lab / Micro Data Result Diagrams: 08/18/21 05:15 08/18/21 05:15 Charges/Coding Addendum Addendum: Patient seen and examined independently. Data and vitals reviewed. I agree with the above note by the physician assistant account executive. RLE more edematous than the left. Exam: Patient is no acute distress and afebrile. No diaphoresis. Ongoing induration of the erythema the proximal leg. Did not take down the dressing. Pitting edema in RLE Assessment and plan: 1. Right lower extremity cellulitis and abscess. Overall improving. Status post incision and drainage of a very large abscess. Culture MRSA Still very indurated and will continue with IV vanc for now. Duplex negative for DVT in RLE Visit Charges Inpatient E&M: 54629 Subs Hosp L2
[2021-08-18] MEDS: Insulin Lispro 100 UNIT/ML INSULN.PEN SC (10:56)
[2021-08-18] MEDS: levETIRAcetam 1,000 MG Tablet 1000 MG PO (11:00)
[2021-08-18] MEDS: cloNIDine HCl 0.1 MG Tablet PO ×2 (11:02→23:05)
[2021-08-18 11:20] LABS: Bedside Glucose 155 mg/dL (70-110)
--- NOTE | 2021-08-18 12:28 | PCM.RX.CS ---
Consult Pharmacy has been consulted to manage selected antiobiotic: Vancomycin Type of Consult: Follow-up Suspected Infection: Skin/Soft tissue Prior Doses of Antibiotics Received/Current Regimen: Has been on 1500mg iv q12h. Labs: Sodium 139 mmol/L (136-145) 08/18/21 05:15 Potassium 3.8 mmol/L (3.5-5.1) 08/18/21 05:15 Chloride 111 mmol/L (98-107) H 08/18/21 05:15 Carbon Dioxide 20.0 mmol/L (21.0-32.0) L 08/18/21 05:15 Anion Gap 8 (5-15) 08/18/21 05:15 BUN 18 mg/dL (7-18) 08/18/21 05:15 Creatinine 1.05 mg/dL (0.70-1.30) 08/18/21 05:15 Est GFR (MDRD) Af Amer 98 mL/min (>60) 08/18/21 05:15 Est GFR (MDRD) Non-Af 81 mL/min (>60) 08/18/21 05:15 BUN/Creatinine Ratio 17.1 RATIO (10-20) 08/18/21 05:15 Glucose 137 mg/dL (74-106) H 08/18/21 05:15 Vancomycin Trough 14.9 ug/mL (5.0-15.0) 08/18/21 02:40 Microbiology: Microbiology 08/16/21 08:00 Wound - Leg, Right Gram Stain - Final 08/16/21 08:00 Wound - Leg, Right Wound Culture - Final Meth. resistant Staph. aureus 08/16/21 08:00 Wound - Leg, Right Anaerobic Culture - Final 08/16/21 08:00 Tissue - Leg, Right Gram Stain - Final 08/16/21 08:00 Tissue - Leg, Right Tissue Culture - Final Meth. resistant Staph. aureus 08/16/21 08:00 Tissue - Leg, Right Anaerobic Culture - Preliminary No anaerobic bacteria isolated. 08/15/21 17:45 Interface Orders SARS-CoV-2 Antigen (Rapid) - Final Weight used for dosin kg Estimated Creatinine Clearance: 102ml/min Goal Trough: 15-20 mcg/mL Pharmacy Plan for Drug Dosing: Renal function has improved with CrCl changing from 83ml/min to 102ml/min. Will change dose to 1250mg iv q8h per protocol. Trough level ordered for 08.19.21 before 4th dose of new regimen. Pharmacy Service will continue to monitor and adjust dosing as required. Follow-Up Labs: Trough Vancomycin - 08.19.21@1330 before 1400 dose
[2021-08-18 16:50] LABS: Bedside Glucose 109 mg/dL (70-110)
[2021-08-18] MEDS: 0.9% Saline Lock 10 ML Syringe IV ×2 (22:49→23:21)
[2021-08-18 23:25] LABS: Bedside Glucose 114 mg/dL (70-110)
[2021-08-19] MEDS: Zolpidem Tartrate 5 MG Tablet PO (00:07)
[2021-08-19] MEDS: levETIRAcetam 1,000 MG Tablet 2000 MG PO (00:07)
[2021-08-19] MEDS: Montelukast 10 MG Tablet PO (00:08)
[2021-08-19 04:40] VITALS: BP 160/90; PULSE 80; RESP 16; TEMP 36.8; O2SAT 99
[2021-08-19] MEDS: Calcium Carbonate 500 MG Tablet PO (04:45)
[2021-08-19 06:05] LABS: Hemoglobin 10.3 g/dL (13.0-16.5); Mean Corp Hgb Conc 32.2 g/dL (32-36); Mean Platelet Vol. 10.7 fl (6.2-12.0); POSITIVE COUNT YES; POSITIVE MORPHOLOGY YES; Platelet Count 256 K/mm3 (150-450); RBC Distribution Width CV 13.1 % (11.6-14.6); RBC Distribution Width SD 41.7 fl (35.1-43.9); Red Blood Count 3.68 M/mm3 (4.6-6.2); White Blood Count 10.4 K/mm3 (4.4-11.0)
[2021-08-19 06:11] LABS: Differential Indicated MANUAL DIFF
[2021-08-19 06:40] LABS: Anion Gap 7 (5-15); BUN 15 mg/dL (7-18); BUN/Creat Ratio 14.7 RATIO (10-20); Calcium,Total 8.5 mg/dL (8.5-10.1); Chloride 109 mmol/L (98-107); Creatinine, Serum 1.02 mg/dL (0.70-1.30); EST Glomerular Filtration Rate 83 mL/min (>60); Est Glom Filt Rate - Afr Amer 101 mL/min (>60); Estimated Creatinine Clearance 105.21 ml/min; Glucose 164 mg/dL (74-106); Potassium 3.4 mmol/L (3.5-5.1); Sodium Level 139 mmol/L (136-145)
[2021-08-19 06:54] LABS: Neutrophil-Band 1 % (0-5); Neutrophil-Segmented 76 % (47-70); Total Cells Counted 100 (MANUAL DIFF)
[2021-08-19 06:55] LABS: Lymphocyte 12 % (19-41); Metamyelocyte 1 % (0-1); Monocyte 9 % (0-10); Myelocyte 1 % (0-0); Platelet Estimate ADEQUATE (ADEQ)
[2021-08-19 06:56] LABS: Absolute Lymphocyte Count 1.25 X10^3/uL (0.83-4.51); Anisocytosis RARE; Hypochromasia RARE; Lymphocyte # 1.25 X10^3/ul (0.83-4.51); Microcytosis RARE; Neutrophil # 7.99 X10^3/uL (2.7-7.7)
[2021-08-19 07:06] LABS: Bedside Glucose 147 mg/dL (70-110)
[2021-08-19 08:28] VITALS: BP 184/99; PULSE 62; RESP 16; TEMP 36.9; O2SAT 98
[2021-08-19] MEDS: metFORMIN HCl 500 MG Tablet PO (08:36)
[2021-08-19] MEDS: Enoxaparin 40 MG/0.4 ML Syringe SC (08:36)
[2021-08-19] MEDS: Cholecalciferol (VIT D3) 25 MCG TABLET (1,000 UNITS) 50 MCG PO (08:36)
[2021-08-19] MEDS: Docusate Sodium 100 MG Capsule PO (08:36)
[2021-08-19] MEDS: Lisinopril 40 MG Tablet PO (08:36)
[2021-08-19] MEDS: oxyCODONE 5 MG Tablet PO ×2 (08:59→15:04)
--- NOTE | 2021-08-19 10:32 | PN.SURG_ITS ---
Subjective Subjective Patient reports significant improvement in swelling in his right leg. Objective Data Objective Data The redness has dissipated from the markings on the leg it is still slightly boggy but is not really having any tenderness with this. Vital Signs: Vital Signs Temp Pulse Resp BP Pulse Ox 98.4 F 62 16 184/99 H 98 08/19/21 08:28 08/19/21 08:28 08/19/21 08:28 08/19/21 08:28 08/19/21 08:28 Oxygen Delivery Method Room Air Weight: 229 lb 11.547 oz Body Mass Index (BMI) 29.5 Intake & Output: Intake and Output for Last 24 Hours 08/17/21 08/18/21 08/19/21 23:59 23:59 23:59 Intake Total 5205 / 5205 4502.5 / 4502.5 275 / 275 Output Total 1875 / 1875 1125 / 1125 Balance 3330 / 3330 3377.5 / 3377.5 275 / 275 Lab / Micro Data Result Diagrams: 08/19/21 05:16 08/19/21 05:16 Labs: Laboratory Results - last 24 hr 08/18/21 10:55: POC Glucose 155 H 08/18/21 16:39: POC Glucose 109 08/18/21 23:14: POC Glucose 114 H 08/19/21 05:16: WBC 10.4, RBC 3.68 L, Hgb 10.3 L, Hct 32.0 L, MCV 87.0, MCH 28.0, MCHC 32.2, RDW Std Deviation 41.7, RDW Coeff of [place] 13.1, Plt Count 256, MPV 10.7, Neut % (Auto) Not Reportable, Absolute Neuts (auto) 8.0 H, Absolute Lymphs (auto) 1.25, Total Counted 100, Neutrophils % (Manual) 76 H, Band Neutrophils % 1, Lymphocytes % (Manual) 12 L, Monocytes % (Manual) 9, Metamyelocytes % 1, Myelocytes % 1 H, Diff Path Review May foll, Platelet Estimate ADEQUATE, Hypochromasia RARE, Anisocytosis RARE, Microcytosis RARE 08/19/21 05:16: Sodium 139, Potassium 3.4 L, Chloride 109 H, Carbon Dioxide 23.0, Anion Gap 7, BUN 15, Creatinine 1.02, Estim Creat Clear Calc 105.21, Est GFR (MDRD) Af Amer 101, Est GFR (MDRD) Non-Af 83, BUN/Creatinine Ratio 14.7, Glucose 164 H, Calcium 8.5 08/19/21 06:18: POC Glucose 147 H Micro: Microbiology 08/16/21 08:00 Wound - Leg, Right Gram Stain - Final 08/16/21 08:00 Wound - Leg, Right Wound Culture - Final Meth. resistant Staph. aureus 08/16/21 08:00 Wound - Leg, Right Anaerobic Culture - Final 08/16/21 08:00 Tissue - Leg, Right Gram Stain - Final 08/16/21 08:00 Tissue - Leg, Right Tissue Culture - Final Meth. resistant Staph. aureus 08/16/21 08:00 Tissue - Leg, Right Anaerobic Culture - Preliminary No anaerobic bacteria isolated. 08/15/21 17:45 Interface Orders SARS-CoV-2 Antigen (Rapid) - Final Radiography Diagnostic Testing: Radiology Impression Venous Doppler Study 08/18/21 07:50 Interpretation Summary There is no evidence of right lower extremity deep vein thrombosis. Right great saphenous vein appears patent and compressible segmentally. Technically limited examination as unable to visualize the right common femoral vein and proximal femoral vein secondary to wound and dressings. Ordering Physician: Omar Hemphill Referring Physician: Patricia Chauhan Performed By: Ofelia Calhoun, SASHA, RVT Assessment & Plan Assessment/Plan (1) Abscess of right thigh: PLAN: Would anticipate probable discharge sometime today on oral antibiotics and dressing changes.
[2021-08-19 12:39] VITALS: BP 170/78; PULSE 71; RESP 18; TEMP 36.9; O2SAT 97
--- NOTE | 2021-08-19 12:47 | PN.HOSP_ITS ---
Subjective Subjective Patient is a 46-year-old male comfortably resting in a chair, alert and orient x3. Patient reports significant improvement in his right lower extremity swelling. Denies development of any new symptoms overnight. Does not appear in acute distress. Objective Data Objective Data Vital Signs: Vital Signs Temp Pulse Resp BP Pulse Ox 98.5 F 71 18 170/78 H 97 08/19/21 12:39 08/19/21 12:39 08/19/21 12:39 08/19/21 12:39 08/19/21 12:39 Oxygen Delivery Method Room Air Weight: 229 lb 11.547 oz Body Mass Index (BMI) 29.5 Intake & Output: Intake and Output for Last 24 Hours 08/17/21 08/18/21 08/19/21 23:59 23:59 23:59 Intake Total 5205 / 5205 4502.5 / 4502.5 550 / 550 Output Total 1875 / 1875 1125 / 1125 Balance 3330 / 3330 3377.5 / 3377.5 550 / 550 Lab / Micro Data Result Diagrams: 08/19/21 05:16 08/19/21 05:16 Labs: Laboratory Results - last 24 hr 08/18/21 16:39: POC Glucose 109 08/18/21 23:14: POC Glucose 114 H 08/19/21 05:16: WBC 10.4, RBC 3.68 L, Hgb 10.3 L, Hct 32.0 L, MCV 87.0, MCH 28.0, MCHC 32.2, RDW Std Deviation 41.7, RDW Coeff of [place] 13.1, Plt Count 256, MPV 10.7, Neut % (Auto) Not Reportable, Absolute Neuts (auto) 8.0 H, Absolute Lymphs (auto) 1.25, Total Counted 100, Neutrophils % (Manual) 76 H, Band Neutrophils % 1, Lymphocytes % (Manual) 12 L, Monocytes % (Manual) 9, Metamyelocytes % 1, Myelocytes % 1 H, Diff Path Review May foll, Platelet Estimate ADEQUATE, Hypochromasia RARE, Anisocytosis RARE, Microcytosis RARE 08/19/21 05:16: Sodium 139, Potassium 3.4 L, Chloride 109 H, Carbon Dioxide 23.0, Anion Gap 7, BUN 15, Creatinine 1.02, Estim Creat Clear Calc 105.21, Est GFR (MDRD) Af Amer 101, Est GFR (MDRD) Non-Af 83, BUN/Creatinine Ratio 14.7, Glucose 164 H, Calcium 8.5 08/19/21 06:18: POC Glucose 147 H Micro: Microbiology 08/16/21 08:00 Wound - Leg, Right Gram Stain - Final 08/16/21 08:00 Wound - Leg, Right Wound Culture - Final Meth. resistant Staph. aureus 08/16/21 08:00 Wound - Leg, Right Anaerobic Culture - Final 08/16/21 08:00 Tissue - Leg, Right Gram Stain - Final 08/16/21 08:00 Tissue - Leg, Right Tissue Culture - Final Meth. resistant Staph. aureus 08/16/21 08:00 Tissue - Leg, Right Anaerobic Culture - Preliminary No anaerobic bacteria isolated. 08/15/21 17:45 Interface Orders SARS-CoV-2 Antigen (Rapid) - Final Physical Exam Const alert, oriented x3 and no apparent distress HEENT head/scalp atraumatic and moist oral mucous membranes Head and Scalp: normocephalic Eyes PERRL, EOMs intact bilaterally and conjunctivae normal Neck no lymphadenopathy, supple and no JVD Resp normal respiratory effort, no retractions, no use of accessory muscles and clear to auscultation bilaterally Cardio regular rate, regular rhythm, no murmurs and no JVD GI normal to inspection, nondistended, normoactive bowel sounds, soft to palpation and non-tender Extremity Extremity Narrative: Significant improvement in swelling, erythema and tenderne ss of the right lower extremity. Right lower extremity still mildly larger than the left. Peripheral Pulses: Yes pulses 2+ throughout Skin no rashes or lesions noted, no wounds, skin turgor normal and no jaundice Neuro CN's II-XII intact bilaterally Psych affect normal Assessment & Plan Assessment/Plan (1) Abscess of right thigh: (2) Cellulitis: QUALIFIERS: Site of cellulitis: extremity Site of cellulitis of extremity: lower extremity Laterality: right Qualified Code(s): L03.115 - Cellulitis of right lower limb PLAN: Day 5 Discharge planning: Current plan is for patient to discharge home. 1) Right groin abcess with cellulitis POD #3 from I&D of abcess. RLE is significantly improved from yesterday and swelling is decreased. Duplex ultrasound obtained yesterday did not demonstrate any evidence of DVT. Patient vital signs are stable and patient is afebrile. CBC does not demonstrate a leukocytosis. Wound cultures demonstrate MRSA. Fungal and blood cultures pending. Plan; continue vancomycin, await blood and fungal cultures, Gen Surg following. 2) HTN Stable, continue lisinopril and clonidine. 3) seizure history Continue Keppra. 4) DM2 Complicates #1. Continue Accu-Cheks with sliding scale insulin, continue Metfor min. DVT prophylaxis - Lovenox. Patient seen by Juan Luis Cote PA-C, under the supervision of Dr. Hemphill.
[2021-08-19] MEDS: cloNIDine HCl 0.1 MG Tablet PO (12:57)
[2021-08-19] MEDS: levETIRAcetam 1,000 MG Tablet 1000 MG PO (12:57)
--- NOTE | 2021-08-19 12:57 | DCINST_ITS ---
Discharge Instructions Diet Discharge Diet: No restrictions Activity Discharge Activity: Return to Normal Activity Weight Bearing Status: Weight bearing as tolerated Dressing / Incision Call your doctor if your incision/area has: Continuous Slow Oozing, Sudden Increased Bleeding, Increased Pain/ Swelling, Increased Redness, Foul Smelling Discharge and Swelling at the incision site Call your doctor if you observe: Fever of 101 or Higher, Numbness or Tingling, Shortness of breath, Dizziness, Chest pain, Increased palpitations (irregular heartbeat) and Calf discomfort Follow Up Care Please Follow Up With: Primary care provider When: Within the next two weeks. Test Results: Test results from this visit will be discussed in further detail at your follow-up appointment, if applicable. Discharge Plan Admission Admit Date/Time: 08/14/21 01:59 Primary Reason for Your Visit: RLE cellulitis Attending Provider: Omar Hemphill Primary Care Provider: Patricia Chauhan NP Consulting Providers: Nilson Rojas Discharge Orders/Prescriptions Prescriptions: New sulfamethoxazole-trimethoprim [Bactrim DS] 800-160 mg tablet 1 tab PO BID Qty: 14 RF: 0 metformin 500 mg tablet 500 mg PO DAILY Qty: 30 RF: 0 Continued clonidine HCl 0.2 MG tablet 0.1 mg PO BID RF: 0 lisinopril 10 MG tablet 40 mg PO DAILY RF: 0 montelukast 10 MG tablet 10 mg PO 0000 RF: 0 zolpidem [Ambien] 10 MG tablet 10 mg PO QHS RF: 0 Zyrtec 10 MG capsule 10 mg PO DAILY RF: 0 levetiracetam [Keppra] 1,000 MG tablet 1,000 mg PO 1200 RF: 0 levetiracetam 1,000 MG tablet 2,000 mg PO 0000 RF: 0 cholecalciferol (vitamin D3) [Vitamin D3] 2,000 UNIT capsule 2,000 unit PO DAILY RF: 0 Pertzye 16,000-57,500- 60,500 unit capsule,delayed release(DR/EC) 5 cap PO TIDCM RF: 0 Pertzye 16,000-57,500- 60,500 unit capsule,delayed release(DR/EC) 3 cap PO PRN PRN (Reason: with snacks) RF: 0 levetiracetam [Keppra] 1,000 mg Tablet 2,000 mg PO DAILY RF: 0 Other Ambulatory Orders: Glucometer (Routine) Location: None Selected Ordered By: Juan Luis DOMINGO Referrals / Follow Up: Nilson Rojas MD [STAFF PHYSICIAN] - Within 2 Weeks Patricia Chauhan NP, [employer]UCK [employer]IVER TE[employer]STER-C [Primary Care Provider] - Within 2 Weeks Disposition Disposition (needs filled in before D/C Order can be placed): Home, Self Care
--- NOTE | 2021-08-19 13:16 | PCM.DC.SUM ---
Documented by User: Juan Luis DOMINGO 08/19/21 13:29 Providers Date of Admission: 08/14/21 Primary Care Physician: MAURISIO Pham Consultations 08/15/21 14:18 Consult: General Surgery Routine Consulting Provider: Nilson Rojas Reason for Consult: abscess EMERGENT Consult: No MD Notified: Yes Date Notified: 08/15/21 Time Notified: 14:19 Method of Notification: Provider Initiated 08/16/21 10:16 Consult: Onc/Wound/tire trimmer hand Routine Comment: Reason for Consult:: right thigh I&D 08/16/21 10:57 Consult: Onc/Wound/tire trimmer hand Routine Comment: Reason For Visit: CELLULITIS Diagnosis Discharge Diagnosis (1) Abscess of right thigh: Status: Acute Code(s): L02.415 - Cutaneous abscess of right lower limb (2) Cellulitis: Status: Acute Code(s): L03.90 - Cellulitis, unspecified Qualifiers: Laterality: right Site of cellulitis: extremity Site of cellulitis of extremity: lower extremity Qualified Code(s): L03.115 - Cellulitis of right lower limb Medications at Discharge Home Medications clonidine HCl 0.1 mg PO BID 07/07/13 lisinopril 40 mg PO DAILY 07/07/13 montelukast 10 mg PO 0000 07/07/13 Zyrtec 10 mg PO DAILY 03/03/14 zolpidem [Ambien] 10 mg PO QHS 03/03/14 levetiracetam [Keppra] 1,000 mg PO 1200 03/09/14 cholecalciferol (vitamin D3) [Vitamin D3] 2,000 unit PO DAILY 11/18/17 levetiracetam 2,000 mg PO 0000 11/18/17 Pertzye 3 cap PO PRN PRN 08/14/21 Pertzye 5 cap PO TIDCM 08/14/21 levetiracetam [Keppra] 2,000 mg PO DAILY 08/14/21 metformin 500 mg PO DAILY #30 tab 08/19/21 sulfamethoxazole-trimethoprim [Bactrim DS] 1 tab PO BID #14 tab 08/19/21 Hospital Course Summary of Care Provided Minutes Spent on Discharge: 35 Hospital Course: Disposition: Patient discharged home. 1) Right groin abcess with cellulitis POD #3 from I&D of abcess. RLE is significantly improved from yesterday and swelling is decreased. Duplex ultrasound obtained yesterday did not demonstrate any evidence of DVT. Patient vital signs are stable and patient is afebrile. CBC does not demonstrate a leukocytosis. Wound cultures demonstrate MRSA. Fungal and blood cultures pending, will follow up with the patient after discharge. Patient to be discharged home on Bactrim DS for 7 more days. Patient is to follow-up with Dr. Rojas from general surgery within the next 2 weeks. 2) HTN Stable, continue lisinopril and clonidine. 3) seizure history Continue Keppra. 4) DM2 Patient initiated on Metformin 500 mg daily at discharge. Home diabetic also ordered on discharge. Patient seen by Juan Luis Cote PA-C, under the supervision of Dr. Hemphill. Physical Exam Narrative Patient is a 46-year-old male comfortably resting in a chair, alert and orient x3. Patient reports significant improvement in his right lower extremity swelling. Denies development of any new symptoms overnight. Does not appear in acute distress Const alert, oriented x3 and no apparent distress HEENT normocephalic, head/scalp atraumatic and hearing grossly normal bilaterally Eyes PERRL, EOMs intact bilaterally and conjunctivae normal Neck no lymphadenopathy, supple and no JVD Resp normal respiratory effort, no retractions, no use of accessory muscles and clear to auscultation bilaterally Cardio regular rate, regular rhythm, no murmurs and no JVD GI normal to inspection, nondistended, normoactive bowel sounds, soft to palpation and non-tender Extremity normal to inspection, full ROM and no clubbing, cyanosis or edema Skin no rashes or lesions noted, no wounds and skin turgor normal Neuro CN's II-XII intact bilaterally Psych affect normal Weight / BMI Weight Weight: 229 lb 11.547 oz Body Mass Index (BMI) 29.5 ABG / Lab / Microbiology Data Result Diagrams: 08/19/21 05:16 08/19/21 05:16 Laboratory: Laboratory Results - last 24 hr 08/18/21 16:39: POC Glucose 109 08/18/21 23:14: POC Glucose 114 H 08/19/21 05:16: WBC 10.4, RBC 3.68 L, Hgb 10.3 L, Hct 32.0 L, MCV 87.0, MCH 28.0, MCHC 32.2, RDW Std Deviation 41.7, RDW Coeff of [place] 13.1, Plt Count 256, MPV 10.7, Neut % (Auto) Not Reportable, Absolute Neuts (auto) 8.0 H, Absolute Lymphs (auto) 1.25, Total Counted 100, Neutrophils % (Manual) 76 H, Band Neutrophils % 1, Lymphocytes % (Manual) 12 L, Monocytes % (Manual) 9, Metamyelocytes % 1, Myelocytes % 1 H, Diff Path Review May foll, Platelet Estimate ADEQUATE, Hypochromasia RARE, Anisocytosis RARE, Microcytosis RARE 08/19/21 05:16: Sodium 139, Potassium 3.4 L, Chloride 109 H, Carbon Dioxide 23.0, Anion Gap 7, BUN 15, Creatinine 1.02, Estim Creat Clear Calc 105.21, Est GFR (MDRD) Af Amer 101, Est GFR (MDRD) Non-Af 83, BUN/Creatinine Ratio 14.7, Glucose 164 H, Calcium 8.5 08/19/21 06:18: POC Glucose 147 H Microbiology: Microbiology 08/16/21 08:00 Wound - Leg, Right Gram Stain - Final 08/16/21 08:00 Wound - Leg, Right Wound Culture - Final Meth. resistant Staph. aureus 08/16/21 08:00 Wound - Leg, Right Anaerobic Culture - Final 08/16/21 08:00 Tissue - Leg, Right Gram Stain - Final 08/16/21 08:00 Tissue - Leg, Right Tissue Culture - Final Meth. resistant Staph. aureus 08/16/21 08:00 Tissue - Leg, Right Anaerobic Culture - Preliminary No anaerobic bacteria isolated. 08/15/21 17:45 Interface Orders SARS-CoV-2 Antigen (Rapid) - Final D/C Instructions Discharge Diet: No restrictions Weight Bearing Status: Weight bearing as tolerated Call your doctor if your incision/area has: Continuous Slow Oozing, Sudden Increased Bleeding, Increased Pain/ Swelling, Increased Redness, Foul Smelling Discharge and Swelling at the incision site Call your doctor if you observe: Fever of 101 or Higher, Numbness or Tingling, Shortness of breath, Dizziness, Chest pain, Increased palpitations (irregular heartbeat) and Calf discomfort Please Follow Up With: Primary care provider When: Within the next two weeks. Meaningful Use Info Meaningful Use Diagnoses (Choose all that apply): None applicable Discharge Plan Admission Admit Date/Time: 08/14/21 01:59 Primary Reason for Your Visit: RLE cellulitis Attending Provider: Omar Hemphill Primary Care Provider: Patricia Chauhan NP Consulting Providers: Nilson Rojas Discharge Orders/Prescriptions Prescriptions: New sulfamethoxazole-trimethoprim [Bactrim DS] 800-160 mg tablet 1 tab PO BID Qty: 14 RF: 0 metformin 500 mg tablet 500 mg PO DAILY Qty: 30 RF: 0 Continued clonidine HCl 0.2 MG tablet 0.1 mg PO BID RF: 0 lisinopril 10 MG tablet 40 mg PO DAILY RF: 0 montelukast 10 MG tablet 10 mg PO 0000 RF: 0 zolpidem [Ambien] 10 MG tablet 10 mg PO QHS RF: 0 Zyrtec 10 MG capsule 10 mg PO DAILY RF: 0 levetiracetam [Keppra] 1,000 MG tablet 1,000 mg PO 1200 RF: 0 levetiracetam 1,000 MG tablet 2,000 mg PO 0000 RF: 0 cholecalciferol (vitamin D3) [Vitamin D3] 2,000 UNIT capsule 2,000 unit PO DAILY RF: 0 Pertzye 16,000-57,500- 60,500 unit capsule,delayed release(DR/EC) 5 cap PO TIDCM RF: 0 Pertzye 16,000-57,500- 60,500 unit capsule,delayed release(DR/EC) 3 cap PO PRN PRN (Reason: with snacks) RF: 0 levetiracetam [Keppra] 1,000 mg Tablet 2,000 mg PO DAILY RF: 0 Other Ambulatory Orders: Glucometer (Routine) Location: None Selected Ordered By: Juan Luis DOMINGO Referrals / Follow Up: Nilson Rojas MD [STAFF PHYSICIAN] - Within 2 Weeks Patricia Chauhan NP, [employer]-[facility] [Primary Care Provider] - Within 2 Weeks Disposition Disposition (needs filled in before D/C Order can be placed): Home, Self Care Documented by User: Dr. Omar Hemphill DO 08/19/21 13:55 Providers Date of Admission: 08/14/21 Reason For Visit: CELLULITIS Medications at Discharge Home Medications clonidine HCl 0.1 mg PO BID 07/07/13 lisinopril 40 mg PO DAILY 07/07/13 montelukast 10 mg PO 0000 07/07/13 Zyrtec 10 mg PO DAILY 03/03/14 zolpidem [Ambien] 10 mg PO QHS 03/03/14 levetiracetam [Keppra] 1,000 mg PO 1200 03/09/14 cholecalciferol (vitamin D3) [Vitamin D3] 2,000 unit PO DAILY 11/18/17 levetiracetam 2,000 mg PO 0000 11/18/17 Pertzye 3 cap PO PRN PRN 08/14/21 Pertzye 5 cap PO TIDCM 08/14/21 levetiracetam [Keppra] 2,000 mg PO DAILY 08/14/21 metformin 500 mg PO DAILY #30 tab 08/19/21 sulfamethoxazole-trimethoprim [Bactrim DS] 1 tab PO BID #14 tab 08/19/21 Hospital Course Operations - (incision and drainage of right thigh abscess. ) Summary of Care Provided Minutes Spent on Discharge: 35 Hospital Course: This is a 46-year-old male presents with right thigh cellulitis. Patient had a CAT scan showed an adrenal abscess with subsequent CAT scan showed enlarging of the abscess. Surgery was consulted patient was taken to the operating room on the where patient had purulent fluid expressed. Culture came back showing MRSA. Patient still have some low-grade temperatures afterwards and did have blood cultures. Today, the patient lost IV access and refused to have it replaced. Initial plan was to monitor the patient overnight to make sure he didn't decline but the fact that he did not want an IV to receive IV vancomycin we elected to proceed with discharged for the patient to complete 7 days of trimethoprim/sulfamethoxazole. The hospital service will follow up the blood cultures neck 24 h to see if those are positive that may warrant the patient have the come back into the hospital for further evaluation. Overall, the patient is doing better. Patient did have a increased right lower extremity edema as compared to his left. Duplex is negative for DVT. Is felt that patient likely has some reduced venous flow due to the swelling in his groin and may be some issues pertaining to his lymph system as well. Patient has reported some improvement with that. Physical Exam Const alert and oriented x3 Extremity Extremity Narrative: Decreased right lower extremity edema Skin Skin Narrative: Resolving erythema of the right lower extremity ABG / Lab / Microbiology Data Result Diagrams: 08/19/21 05:16 08/19/21 05:16 Discharge Plan Admission Admit Date/Time: 08/14/21 01:59 Primary Reason for Your Visit: RLE cellulitis Attending Provider: Omar Hemphill Primary Care Provider: Patricia Chauhan NP Consulting Providers: Nilson Rojas Discharge Orders/Prescriptions Prescriptions: New sulfamethoxazole-trimethoprim [Bactrim DS] 800-160 mg tablet 1 tab PO BID Qty: 14 RF: 0 metformin 500 mg tablet 500 mg PO DAILY Qty: 30 RF: 0 Continued clonidine HCl 0.2 MG tablet 0.1 mg PO BID RF: 0 lisinopril 10 MG tablet 40 mg PO DAILY RF: 0 montelukast 10 MG tablet 10 mg PO 0000 RF: 0 zolpidem [Ambien] 10 MG tablet 10 mg PO QHS RF: 0 Zyrtec 10 MG capsule 10 mg PO DAILY RF: 0 levetiracetam [Keppra] 1,000 MG tablet 1,000 mg PO 1200 RF: 0 levetiracetam 1,000 MG tablet 2,000 mg PO 0000 RF: 0 cholecalciferol (vitamin D3) [Vitamin D3] 2,000 UNIT capsule 2,000 unit PO DAILY RF: 0 Pertzye 16,000-57,500- 60,500 unit capsule,delayed release(DR/EC) 5 cap PO TIDCM RF: 0 Pertzye 16,000-57,500- 60,500 unit capsule,delayed release(DR/EC) 3 cap PO PRN PRN (Reason: with snacks) RF: 0 levetiracetam [Keppra] 1,000 mg Tablet 2,000 mg PO DAILY RF: 0 Other Ambulatory Orders: Glucometer (Routine) Location: None Selected Ordered By: Juan Luis DOMINGO Referrals / Follow Up: Nilson Rojas MD [STAFF PHYSICIAN] - Within 2 Weeks Ciesa,Patricia [employer], [employer]-[facility] [Primary Care Provider] - Within 2 Weeks Disposition Disposition (needs filled in before D/C Order can be placed): Home, Self Care Charges/Coding Visit Charges Inpatient E&M: 61151 Disch Hosp
--- NOTE | 2021-08-19 15:48 | CASEMGMT ---
NANDINI CM in to pt room per request of pt nurse. Pt has questions regarding HHC. Pt is not homebound. Pt does not use AD to leave the home. Made pt aware that he does not qualify for HHC. Pt states he has a nurse friend who will do the dressings through Saturday. Discussed then pt or performing with a mirror. Pt is aware that HHC would not come twice a day to do dressings. Pt and stated they felt more comfortable with the dressing by end of conversation. They deny further needs at this time.
[2021-08-19 17:01] LABS: Bedside Glucose 94 mg/dL (70-110)
[2021-08-21 10:34] LABS: Pathologist Review Reviewed
[2021-08-22 08:59] LABS: Pathologist Review Reviewed
== END 2021-08-19 17:06 | disposition home or self-care (01) | DRG 603 ==
LOC: ED 08-14 01:53 → PCU 08-14 06:59
PROVIDERS: Nurse Practitioner Family; Physician Assistant; Surgery; Admitting Provider Internal Medicine; Emergency Provider Emergency Medicine; PCP Nurse Practitioner
PROC: (CPT 27301; principal; 2021-08-16 07:05)
DX: L02.415 Cutaneous abscess of right lower limb (principal); N17.9 Acute kidney failure, unspecified; E11.65 Type 2 diabetes mellitus with hyperglycemia; R56.9 Unspecified convulsions; I10 Essential (primary) hypertension; L03.115 Cellulitis of right lower limb; R59.0 Localized enlarged lymph nodes; B95.62 Methicillin resistant Staphylococcus aureus infection as the cause of diseases classified elsewhere; Z86.718 Personal history of other venous thrombosis and embolism; Z79.899 Other long term (current) drug therapy; Z87.891 Personal history of nicotine dependence; E87.5 Hyperkalemia
CPT/HCPCS: 27301; 01250; 36415; 73700; 73701; 80048; 80053; 80202; 81001; 82962; 83036; 84132; 85025; 87015; 87040; 87070; 87075; 87077; 87102; 87116; 87186; 87205; 87206; 87426; 93005; 93971; 96361; 96365; 96366; 96367; 96372; 96375; 96376; 97802; 99218; 99283; J7030; J7040; J7050; Q9967; A4216; G0378; J0295; J2405

== ENCOUNTER → 2021-08-29 | Outpatient (CLI) | payer OTHER, SELFPAY | END | disposition home or self-care (01) | LOC: LABSPEC 09:59 | PROVIDERS: PCP Nurse Practitioner; Visit Provider Nurse Practitioner | DX: A49.02 Methicillin resistant Staphylococcus aureus infection, unspecified site (principal) | CPT/HCPCS: 87070; 87205 ==

== ENCOUNTER 2021-11-06 16:12 | Outpatient (CLI) | payer OTHER, SELFPAY ==
--- NOTE | 2021-11-06 16:54 | RAD_ITS ---
STUDY: X-RAY CHEST REASON FOR EXAM: Male, 46 years old. Right kidney neoplasm. TECHNIQUE: Frontal and lateral views of the chest. COMPARISON: 08/14/2019. FINDINGS: The lungs are clear and expanded. There is no demonstrated pleural abnormality. Normal size heart. Normal mediastinum and silvana. Normal visualized pulmonary arteries. Normal visualized aortic arch and descending thoracic aorta. Stable mild thoracic dextroscoliosis. Normal visualized ribs, clavicles, and shoulders. There is no demonstrated abnormality of the visualized soft tissue structures of the upper abdomen. RAD/Chest PA and Lateral IMPRESSION: Stable dextroscoliosis of the thoracic spine. No other abnormality present. Electronically Signed: Kong Diaz MD at 10:11 EST ,
[2021-11-06 17:06] LABS: Hematocrit 41.8 % (40-54); Mean Corp Hgb Conc 33.5 g/dL (32-36); Mean Corpuscular Hgb 28.2 pg (27.0-32.0); Mean Corpuscular Volume 84.1 fL (80-94); Mean Platelet Vol. 11.2 fl (6.2-12.0); Platelet Count 199 K/mm3 (150-450); RBC Distribution Width CV 13.3 % (11.6-14.6); RBC Distribution Width SD 41.2 fl (35.1-43.9); Red Blood Count 4.97 M/mm3 (4.6-6.2); White Blood Count 4.6 K/mm3 (4.4-11.0)
[2021-11-06 17:53] LABS: ALB/GLOB Ratio 1.4 RATIO (0.9-2.4); AST(SGOT) 16 U/L (15-37); Alanine Aminotransfer ALT/SGPT 31 U/L (16-61); Albumin, Serum 4.3 g/dL (3.2-5.0); Alkaline Phosphatase 68 U/L (45-117); Anion Gap 6 (5-15); BUN 19 mg/dL (7-18); BUN/Creat Ratio 15.1 RATIO (10-20); Calcium,Total 9.8 mg/dL (8.5-10.1); Chloride 107 mmol/L (98-107); Creatinine, Serum 1.26 mg/dL (0.70-1.30); EST Glomerular Filtration Rate 65 mL/min (>60); Est Glom Filt Rate - Afr Amer 79 mL/min (>60); Free T3 2.9 pg/mL (2.18-3.98); Glucose 90 mg/dL (74-106); Potassium 3.9 mmol/L (3.5-5.1); Protein, Total 7.3 g/dL (6.4-8.2); Sodium Level 140 mmol/L (136-145); T4 Free Direct 1.06 ng/dL (0.76-1.46); Thyroid Stim Hormone (TSH) 0.71 uIU/mL (0.358-3.74)
== END 2021-11-06 23:59 | disposition home or self-care (01) ==
PROVIDERS: PCP Nurse Practitioner; Visit Provider Urology
DX: C64.1 Malignant neoplasm of right kidney, except renal pelvis (principal); R79.89 Other specified abnormal findings of blood chemistry
CPT/HCPCS: 36415; 71046; 80053; 84439; 84443; 84481; 85027

== ENCOUNTER 2021-11-13 15:20 | Outpatient (CLI) | payer OTHER, SELFPAY ==
[2021-11-13 17:42] LABS: PSA,Total - Annual Screen 0.78 ng/mL (0.00-4.00)
== END 2021-11-13 23:59 | disposition home or self-care (01) ==
LOC: LAB 15:23
PROVIDERS: PCP Nurse Practitioner; Referring Provider Urology; Visit Provider Urology
DX: Z12.5 Encounter for screening for malignant neoplasm of prostate (principal)
CPT/HCPCS: 36415; 84153; G0103

== ENCOUNTER → 2022-11-19 | Outpatient (CLI) | payer OTHER, SELFPAY ==
--- NOTE | 2022-11-19 15:17 | RAD_ITS ---
STUDY: X-RAY CHEST REASON FOR EXAM: Male, 47 years old. Fever and cough TECHNIQUE: PA and lateral views of the chest. COMPARISON: 11/06/2021 FINDINGS: The lungs are clear and expanded. There is no demonstrated pleural abnormality. Normal size heart. Normal mediastinum and silvana. Normal visualized pulmonary arteries. Normal visualized aortic arch and descending thoracic aorta. Normal visualized thoracic spine. Normal visualized ribs, clavicles, and shoulders. There is no demonstrated abnormality of the visualized soft tissue structures of the upper abdomen. RAD/Chest PA and Lateral IMPRESSION: Normal x-ray examination of the chest. Electronically Signed: Gagan Elizalde MD at 15:29 EDT ,
[2022-11-19 15:59] LABS: Hematocrit 43.6 % (40-54); Hemoglobin 14.1 g/dL (13.0-16.5); Mean Corp Hgb Conc 32.3 g/dL (32-36); Mean Corpuscular Volume 89.7 fL (80-94); Mean Platelet Vol. 11.1 fl (6.2-12.0); Platelet Count 205 K/mm3 (150-450); RBC Distribution Width CV 13.1 % (11.6-14.6); RBC Distribution Width SD 42.8 fl (35.1-43.9); Red Blood Count 4.86 M/mm3 (4.6-6.2); White Blood Count 5.1 K/mm3 (4.4-11.0)
[2022-11-19 16:22] LABS: Anion Gap 8 (5-15); BUN 15 mg/dL (7-18); BUN/Creat Ratio 12.5 RATIO (10-20); Calcium,Total 8.9 mg/dL (8.5-10.1); Chloride 107 mmol/L (98-107); EST Glomerular Filtration Rate 69 mL/min (>60); Est Glom Filt Rate - Afr Amer 83 mL/min (>60); Glucose 136 mg/dL (74-106); PSA,Total- Diagnostic 0.68 ng/mL (0.0-4.0); Potassium 4.3 mmol/L (3.5-5.1); Sodium Level 142 mmol/L (136-145)
== END | disposition home or self-care (01) ==
LOC: LAB 14:54
PROVIDERS: PCP Nurse Practitioner Family; Visit Provider Urology
DX: C64.1 Malignant neoplasm of right kidney, except renal pelvis (principal); Z12.5 Encounter for screening for malignant neoplasm of prostate
CPT/HCPCS: 36415; 71046; 80048; 84153; 85027

== ENCOUNTER → 2022-12-28 | Outpatient (CLI) | payer OTHER, SELFPAY ==
--- NOTE | 2022-12-28 17:05 | CT_ITS ---
STUDY: CT ABDOMEN AND PELVIS WITH CONTRAST - URINARY TRACT REASON FOR EXAM: Male, 47 years old. Right-sided renal cell carcinoma. RADIATION DOSAGE (If Supplied By Facility): CTDIvol = ( 13.69 ) mGy, DLP = ( 1149.17 ) mGycm TECHNIQUE: IV 75mL [id number]-[id number] was administered. Transaxial images were obtained from the dome of the diaphragm to the symphysis pubis. Multiplanar coronal and sagittal images were reformatted. Individualized Dose Optimization Techniques Were Used For This CT. COMPARISON: August 31, 2020 FINDINGS: The visualized lung bases are unremarkable. The visualized portions of the heart are within normal limits. There is a 1.9 cm cyst in segment 8 of an otherwise normal liver. Absence of the gallbladder suggesting prior cholecystectomy. There is no biliary ductal abnormality. Mild splenomegaly without mass. Normal pancreas. Normal bilateral adrenal glands. Normal visualized stomach. Normal small intestine. Normal colon. The appendix is visualized and appears normal. Normal abdominal aorta. Normal IVC No retroperitoneal adenopathy. Normal right kidney. There is a 3 mm nonobstructing calculus again seen in the lower pole of an otherwise normal left kidney. Normal visualized ureters Normal urinary bladder. Normal prostate. No pelvic lymphadenopathy. No free air or free fluid is seen within the cavity. Normal abdominal wall. There are diffuse degenerative changes of the visualized lumbar spine. CT/Abdomen/Pelvis W IV Cont ONLY IMPRESSION: No acute intra-abdominal or pelvic process or interval change. Electronically Signed: Henry Milton DO at 23:45 EDT Reading Location ID and State: [facility] / ID Tel [phone], Service support ,
[2022-12-28 17:45] LABS: CREATININE FINGERSTICK 1.2 mg/dL (0.70-1.30); EGFR FINGERSTICK > 60.0000 mL/min (>60)
== END | disposition home or self-care (01) ==
LOC: CT 17:00
PROVIDERS: PCP Nurse Practitioner Family; Referring Provider Urology; Visit Provider Urology
DX: C64.1 Malignant neoplasm of right kidney, except renal pelvis (principal)
CPT/HCPCS: 74177; Q9967

== ENCOUNTER 2023-03-23 09:44 | Emergency (ER) | payer OTHER, SELFPAY ==
[2023-03-23 09:45] VITALS: BP 140/94; PULSE 75; RESP 14; TEMP 36.3; O2SAT 100; BMI 26.9
--- NOTE | 2023-03-23 10:33 | EDS_ITS ---
HPI History of Present Illness Chief Complaint: Fever Informant: patient and family Onset/Context/Timing Onset: Days Context: Gradual Onset Timing: Continuous Current Severity: Mild Maximum Severity: Mild Narrative Narrative: 40-year-old male past medical history of hypertension, prior seizure history, prior partial brain resection, partial small bowel resection, and partial nephrectomy due to kidney cancer. States the last week since last Saturday has been having headache, body aches. And subjective fever and chills. Checkup said on Saturday his sheets in his bed were wet from he thinks he sweat throughout the night. Yesterday had a fever as high as 1019 with body aches. Associated nausea no vomiting. Few loose stools. No trouble urinating. No rash. Headache is improved. Denies any rashes. Prior similar symptoms: Yes Recent Illness/Hospitalization: No PFSH PFSH Medical History Brain tumor Cellulitis Diabetes mellitus, type 2 Hypertension Kidney carcinoma Migraines Seizures Home Medications clonidine HCl 0.2 mg tablet 0.1 mg PO BID blood pressure 07/07/13 [History Last Taken 11/22/17 02:00] lisinopril 10 mg tablet 40 mg PO DAILY bp 07/07/13 [History Last Taken 11/22/17 05:10] montelukast 10 mg tablet 10 mg PO 0000 allergies 07/07/13 [History Last Taken 11/22/17 02:00] cetirizine 10 mg capsule (Zyrtec) 10 mg PO DAILY allergies 03/03/14 [History Last Taken 03/09/14 05:30] zolpidem 10 mg tablet (Ambien) 10 mg PO QHS sleep 03/03/14 [History Last Taken Unknown] levetiracetam 1,000 mg tablet (Keppra) 1,000 mg PO 1200 seizures 03/09/14 [History Last Taken 11/22/17 02:00] cholecalciferol (vitamin D3) 50 mcg (2,000 unit) capsule (Vitamin D3) 2,000 unit PO DAILY vitamin 11/18/17 [History Last Taken Unknown] levetiracetam 1,000 mg tablet 2,000 mg PO 0000 seizures 11/18/17 [History Last Taken Unknown] levetiracetam 1,000 mg tablet (Keppra) 2,000 mg PO DAILY seizure 08/14/21 [History Last Taken Unknown] kziwmm-dkeohemo-wwzbzpx 16,000-57,500-60,500 unit capsule,delayed rel (Pertzye) 3 cap PO PRN PRN with snacks 08/14/21 [History Last Taken Unknown] qniicy-kbiaenmd-znesyff 16,000-57,500-60,500 unit capsule,delayed rel (Pertzye) 5 cap PO TIDCM 08/14/21 [History Last Taken Unknown] metformin 500 mg tablet 500 mg PO DAILY #30 tabs 08/19/21 [Rx Last Taken Unkno wn] naloxone 4 mg/actuation nasal spray 4 mg intranasal Q3M PRN opioid overdose #2 ea 08/19/21 [Rx Last Taken Unknown] Allergy/AdvReac Type Severity Reaction Status Date / Time No Known Allergies Allergy Verified 03/23/23 09:46 Surgical History History of cholecystectomy Social History Smoking Status: Former smoker ROS ROS ED ROS Narrative Fever and chills. Headache. Review of Systems ROS Unobtainable: Denies due to encephalopathy Constitutional Constitutional ED: Reports chills, fever(s) and subjective Eyes Eyes: Denies blurry vision ENT ENT ED: Denies ear pain, rhinorrhea or sore throat Cardiovascular Cardiovascular: Denies chest pain Respiratory/Chest Respiratory/Chest: Denies cough or dyspnea Gastrointestinal Gastrointestinal: Denies abdominal pain, constipation or melena Genitourinary Genitourinary ED: Denies dysuria or hematuria Musculoskeletal Musculoskeletal: Denies arthralgias Integumentary Denies abscess Neurologic Neurologic: Reports headache(s) Psychiatric Psychiatric: Denies anxiety or depression Endocrine Endocrinology: Denies cold intolerance Hematologic/Lymphatic Hematologic/Lymphatic: Reports none; Denies easy bruising or lymphadenopathy Allergic/Immunologic Allergic/Immunologic ED: Denies mouth swelling, tongue swelling or urticaria EXAM Physical Exam Narrative Exam Narrative: 48-year-old male no acute distress. Vital signs stable afebrile. Clinically looks well. Family at bedside. H EENT exam is unremarkable. Dry reactive light. Moist with membranes. Posterior pharynx unremarkable. Neck nontender. No lymphadenopathy. No meningismus. Full range of motion. Lungs clear equal symmetrical bilaterally. Chest wall nontender. Heart regular rate and rhythm no murmur. Rate about 80. Abdomen soft nontender. Normal bowel sounds no peritoneal signs. Moving all 4 extremities. Normal range of motion. Nontender. No edema. No red or swollen joints. No rashes. Back nontender. Skin unremarkable. Neurologically is awake and alert with no focal motor deficits. Very benign exam. Const Vital Signs: 03/23/23 09:45 Temperature 97.3 F L Temperature Source Temporal Pulse Rate 75 Respiratory Rate 14 Blood Pressure 140/94 H Blood Pressure Mean 109 Pulse Ox 100 Oxygen Delivery Method Room Air Positive well nourished and well developed; Negative for obese, cachectic, contractures or unkempt General Appearance ED: well developed and NAD; Negative for unkempt, cachectic, contractures, cyanotic, diaphoretic or pallor Nutritional Appearance: Negative for cachectic or obese HEENT Reports moist mucous membranes; Denies dry mucous membranes Negative for trauma or tenderness Mouth ED: No dry mucous membranes Mouth: No dry mucous membranes Eyes PERRL and EOMs intact bilaterally General Eye ED: Negative for pale conjunctiva, scleral icterus or other Neck no lymphadenopathy, supple and no JVD General: Negative for tenderness Lymph Lymphatic: Negative for other Chest Wall inspection of chest normal and palpation of chest normal Chest: Negative for other Resp normal respiratory effort and clear to auscultation bilaterally Effort and Inspection: Negative for retractions Auscultation: Negative for rales, rhonchi or wheezes Cardio regular rate, regular rhythm, S1 normal heart sound, S2 normal heart sound and no murmurs Palpation: Negative for palpable S3 Rate: Negative for bradycardia Rhythm: Negative for abnormal rhythm GI normal to inspection, nondistended, normoactive bowel sounds, non-tender, non- distended and no masses Inspection: Negative for abdominal distention Auscultation: normoactive bowel sounds Palpation: soft; Negative for tender or guarding Bladder / Kidney Exam: No other Back/Spine no CVA tenderness General Back: Negative for CVA tenderness Cervical Spine: Negative for cervical spine tenderness Thoracic Spine / Upper Back: Negative for thoracic spinal tenderness or paraspinal muscle tenderness Extremity normal to inspection General Extremety ED: Negative for edema or tenderness General Extremity: Negative for edema Neuro oriented x3, CN's II-XII intact bilaterally and no sensory deficits noted Sensorium / Orientation: alert; Negative for orientation impaired, lethargic or stuporous Motor Exam: strength 5/5 throughout; Negative for general weakness or strength abnormal Psych mental status grossly normal Appearance: Negative for unkempt Attitude: No agitated Mood & Affect: Negative for depressed, anxious or tearful Skin no rashes or lesions noted, no wounds and skin turgor normal General Skin Exam: elasticity normal; Negative for jaundice or pallor Lesions: No lesion noted Rashes: No rashes noted Trauma: Negative for abrasion Wounds: Negative for wounds noted MDM MDM MDM Narrative Medical decision making narrative: 48-year-old male has a benign exam. Fever and chills the last 5+ days. Clinically looks well. Exam is unremarkable. Screening labs will be obtained for possible infectious etiology. Clinically does not have bacterial meningitis. Potentially viral. I do not think he needs a lumbar puncture.He will be given Motrin for headache and body aches. Repeat exam at 12:40 PM patient doing well. Repeat exam is unremarkable. He is awake and alert. Skin is unremarkable. Abdomen and chest are unremarkable. He has full range of motion of his neck. No lymphadenopathy. No meningismus. We went over all his test results. Will be discharged home. Fluids and rest. Tylenol Motrin. [facility]-up with [facility]. History & Record Review Discussion w/independent historian: Patient and Family Lab Data Attestation: I reviewed the patient's lab results. Lab results narrative: Chest x-ray AP and lateral was unremarkable. CBC shows normal white count of 5. H&H of 13.1 and 32. Platelets 170. Electrolytes show a gap of 4. Normal BUN and creatinine 11.1. Glucose 183. Urinalysis is normal. No white or red cells. No nitrates no bacteria. Labs: Laboratory Results - last 24 hr 03/23/23 03/23/23 10:00 10:38 WBC 5.0 RBC 4.56 L Hgb 13.1 Hct 40.1 MCV 87.9 MCH 28.7 MCHC 32.7 RDW Std Deviation 38.7 RDW Coeff of [place] 11.9 Plt Count 170 MPV 11.2 Immature Gran % (Auto) 0.600 Neut % (Auto) 82.2 H Lymph % (Auto) 7.6 L Andrews % (Auto) 9.4 Eos % (Auto) 0.0 Baso % (Auto) 0.2 Absolute Neuts (auto) 4.1 Absolute Lymphs (auto) 0.38 L Nucleated RBC % 0 Platelet Estimate ADEQUATE RBC Morphology NORM C+C Sodium 138 Potassium 4.4 Chloride 106 Carbon Dioxide 28.0 Anion Gap 4 L BUN 8 Creatinine 1.19 Estim Creat Clear Calc 88.26 Est GFR (MDRD) Af Amer 84 Est GFR (MDRD) Non-Af 69 BUN/Creatinine Ratio 6.7 L Glucose 183 H Calcium 8.6 Urine Color Yellow Urine Clarity Clear Urine pH 5.0 Ur Specific [place] 1.025 Urine Protein 30 H Urine Glucose (UA) 100 H Urine Ketones Negative Urine Occult Blood Negative Urine Nitrite Negative Urine Bilirubin Negative Urine Urobilinogen Normal Ur Leukocyte Esterase Negative Urine RBC 0 SEEN Urine WBC 0 SEEN Ur Squamous Epith Cells 0 SEEN Urine Bacteria 0 SEEN Urine Mucus 0 SEEN Radiography Chest X-Ray - ED: 2 View, Read by ED Physician, Read by Radiologist, Heart, Lungs, Mediastinum, Bony Structures, No Acute Disease and Chronic Changes Diagnostic Testing: Clinical Impression(s) from Imaging Studies Chest X-Ray 03/23/23 10:44 IMPRESSION: No radiographic evidence of acute cardiopulmonary disease. Electronically Signed: Jaciel Ram MD at 11:05 EDT , Chest x-ray, 2 views, AP and lateral, interpreted by myself and radiologist shows no acute abnormality. We agree. Discharge Plan Triage Chief Complaint: Fever ED Provider: Juan Fleming Dx/Rx/DC Orders Clinical Impression: Viral syndrome Instructions: ED Viral Syndrome (Adult) Prescriptions: No Action clonidine HCl 0.2 MG tablet 0.1 mg PO BID Patient Comments: TAKES 0200 & 1700 lisinopril 10 MG tablet 40 mg PO DAILY montelukast 10 MG tablet 10 mg PO 0000 Rx Instructions: takes daily at 0000 zolpidem [Ambien] 10 MG tablet 10 mg PO QHS Zyrtec 10 MG capsule 10 mg PO DAILY levetiracetam [Keppra] 1,000 MG tablet 1,000 mg PO 1200 levetiracetam 1,000 MG tablet 2,000 mg PO 0000 Rx Instructions: takes 2000 mg @ midnight and 1000 mg @ 0031-4857 cholecalciferol (vitamin D3) [Vitamin D3] 2,000 UNIT capsule 2,000 unit PO DAILY Pertzye 16,000-57,500- 60,500 unit capsule,delayed release(DR/EC) 5 cap PO TIDCM Rx Instructions: takes 5 capsules with every meal and 3 with snacks Pertzye 16,000-57,500- 60,500 unit capsule,delayed release(DR/EC) 3 cap PO PRN PRN (Reason: with snacks) Rx Instructions: takes 3 capsules with snacks as needed levetiracetam [Keppra] 1,000 mg Tablet 2,000 mg PO DAILY Rx Instructions: pt takes 2,000mg at midnight metformin 500 mg tablet 500 mg PO DAILY Qty: 30 0RF naloxone 4 mg/actuation spray,non-aerosol 4 mg intranasal Q3M PRN (Reason: opioid overdose) Qty: 2 0RF Rx Instructions: spray 1 dose into ONE nostril; alternate nostrils w each dose until help arrives Primary Care Provider: Kathie hTakur Referrals: Kathie Thakur, INSURANCE AND BENEFITS CLERK-C [Primary Care Provider] - 3-5 Days Activity Restrictions/Additional Instructions: Plenty of fluids and rest. Tylenol and Motrin for body aches and fever. Follow-up with your primary care provider if not improving or return if worse. At this time all your labs, chest x-ray and urinalysis were all normal. Disposition Disposition: Home, Self Care
[2023-03-23] MEDS: Ibuprofen 600 MG Tablet PO (10:40)
--- NOTE | 2023-03-23 10:44 | RAD_ITS ---
INDICATION: fever EXAMINATION/TECHNIQUE: X-RAY - XR Chest 2 Views COMPARISON: 11/19/2022. FINDINGS: LINES/DEVICES: None. LUNGS: No consolidation, edema or effusion. No pneumothorax. MEDIASTINUM AND CARDIOVASCULAR STRUCTURES: Cardiac silhouette not enlarged. Central airways and mediastinal contour are unremarkable. BONES AND SOFT TISSUES: Dextroscoliosis could be positional. RAD/Chest PA and Lateral IMPRESSION: No radiographic evidence of acute cardiopulmonary disease. Electronically Signed: Jaciel Ram MD at 11:05 EDT ,
[2023-03-23 10:45] LABS: Absolute Lymphocyte Count 0.38 X10^3/uL (0.83-4.51); Absolute Neutrophil Count 4.1 X10^3/uL (2.0-7.7); Basophil# 0.01 X10^3/uL; Basophil% 0.2 % (0-1); Hematocrit 40.1 % (40-54); Hemoglobin 13.1 g/dL (13.0-16.5); Lymphocyte # 0.38 X10^3/ul (0.83-4.51); Lymphocyte % 7.6 % (19-41); Mean Corp Hgb Conc 32.7 g/dL (32-36); Mean Corpuscular Hgb 28.7 pg (27.0-32.0); Mean Corpuscular Volume 87.9 fL (80-94); Mean Platelet Vol. 11.2 fl (6.2-12.0); Monocyte# 0.47 X10^3/uL; Monocyte% 9.4 % (0-10); NRBC Flagged by Analyzer 0 % (0-5); Neutrophil % 82.2 % (47-70); POSITIVE DIFFERENTIAL YES; Platelet Count 170 K/mm3 (150-450); RBC Distribution Width CV 11.9 % (11.6-14.6); RBC Distribution Width SD 38.7 fl (35.1-43.9); Red Blood Count 4.56 M/mm3 (4.6-6.2)
[2023-03-23 10:47] LABS: Bacteria 0 SEEN /hpf (None Seen); Mucous, Urine 0 SEEN /hpf (<or=2+); Red Blood Cells-Urine 0 SEEN /hpf (0-5); Squamous Epithelial Cells - UA 0 SEEN /hpf (0-5); White Blood Cells 0 SEEN /hpf (0-5)
[2023-03-23 10:49] LABS: Differential Indicated SCAN CRITERIA MET
[2023-03-23 10:54] LABS: Color, Urine Yellow (Yellow); Glucose, Dipstick 100 mg/dl (Normal); Ketone-Dipstick Negative (Negative); Leukocyte Esterase-Dipstick Negative /ul (Negative); Nitrite-Dipstick Negative (Negative); Occult Blood-Urine Negative /ul (Negative); Protein-Dipstick 30 mg/dl (Negative); Specific Gravity, Urine 1.025 (1.002-1.030); Urine Bilirubin Dipstick Negative (Negative); Urine Clarity Clear (Clear); Urine Urobilinogen Normal (Normal)
[2023-03-23 11:00] LABS: Anion Gap 4 (5-15); BUN 8 mg/dL (7-18); BUN/Creat Ratio 6.7 RATIO (10-20); Calcium,Total 8.6 mg/dL (8.5-10.1); Chloride 106 mmol/L (98-107); Creatinine, Serum 1.19 mg/dL (0.70-1.30); EST Glomerular Filtration Rate 69 mL/min (>60); Est Glom Filt Rate - Afr Amer 84 mL/min (>60); Estimated Creatinine Clearance 88.26 ml/min; Glucose 183 mg/dL (74-106); Potassium 4.4 mmol/L (3.5-5.1); Sodium Level 138 mmol/L (136-145)
[2023-03-23] MEDS: Ondansetron 4 MG/2 ML Vial IV (11:00)
[2023-03-23] MEDS: 0.9% Normal Saline 1,000 ML 999 ML IV (11:00)
[2023-03-23 11:24] LABS: Platelet Estimate ADEQUATE (ADEQ); Red Cell Morphology NORM C+C NORMAL (NORM C&C)
[2023-03-23 11:44] VITALS: BP 154/89; PULSE 62; RESP 18; O2SAT 100
== END 2023-03-23 12:51 | disposition home or self-care (01) ==
PROVIDERS: Emergency Provider Emergency Medicine; PCP Nurse Practitioner Family; Visit Provider Emergency Medicine
DX: B34.9 Viral infection, unspecified (principal); E11.9 Type 2 diabetes mellitus without complications; I10 Essential (primary) hypertension; R51.9 Headache, unspecified; Z87.891 Personal history of nicotine dependence
CPT/HCPCS: 71046; 80048; 81001; 85025; 96361; 96374; 99284; J7030; A4216; J2405

== ENCOUNTER → 2023-04-15 | Outpatient (CLI) | payer OTHER, SELFPAY ==
--- NOTE | 2023-04-15 13:37 | CT_ITS ---
STUDY: CT ABDOMEN AND PELVIS WITHOUT CONTRAST REASON FOR EXAM: Male, 48 years old. RUQ pain. History of prior partial right nephrectomy. RADIATION DOSAGE (If Supplied By Facility): CTDIvol = ( 10.76 ) mGy, DLP = ( 587.70 ) mGycm TECHNIQUE: Transaxial images were obtained from the dome of the diaphragm to the symphysis pubis without oral contrast, and without intravenous contrast. Sagittal and coronal images were reconstructed. Individualized dose optimization techniques were used for this CT. COMPARISON: Comparison is made with prior study dated December 28, 2022. FINDINGS: The visualized lung bases are unremarkable. The visualized portions of the heart are within normal limits. There is a 1.9 semi a cyst in the lateral aspect of the right lobe of the liver. The patient is status post cholecystectomy. Normal spleen. Normal pancreas. Normal bilateral adrenal glands. Postsurgical changes are seen along the anterior mid and upper portion of the right kidney. Punctate nonobstructive calculus in the lower pole calyx of the left kidney. Normal visualized stomach. Normal small intestine. There are scattered colonic diverticula consistent with diverticulosis. The appendix is visualized and appears normal. Normal abdominal aorta. Normal inferior vena cava. Normal retroperitoneum. Normal urinary bladder. Normal abdominal wall. There are mild degenerative changes of the visualized lumbar spine. CT/Abdomen/Pelvis without Cont IMPRESSION: Stable postsurgical changes in the anterior mid and upper portion of the right kidney with prior partial nephrectomy. Stable cyst in the right lobe of liver. The patient is status post cholecystectomy. Electronically Signed: Young Aguayo MD at 14:20 EDT ,
== END | disposition home or self-care (01) ==
LOC: CT 13:36
PROVIDERS: PCP Nurse Practitioner Family; Referring Provider Nurse Practitioner Family; Visit Provider Nurse Practitioner Family
DX: R10.11 Right upper quadrant pain (principal)
CPT/HCPCS: 74176

== ENCOUNTER → 2023-04-16 | Outpatient (CLI) | payer OTHER, SELFPAY ==
--- NOTE | 2023-04-16 09:13 | CT_ITS ---
STUDY: CT ABDOMEN AND PELVIS WITH CONTRAST REASON FOR EXAM: Male, 48 years old. RUQ pain with black, tarry stools. -- With IV and Oral contrast, please. STAT RADIATION DOSAGE (If Supplied By Facility): CTDIvol = ( 11.42 ) mGy, DLP = ( 906.10 ) mGycm TECHNIQUE: Transaxial images were obtained from the dome of the diaphragm to the symphysis pubis with oral contrast. Oral and amp; IV Gastrografin and amp; 100mL Isovue-300 was administered. Sagittal and coronal images were reconstructed. Individualized dose optimization techniques were used for this CT. COMPARISON: Comparison is made with prior study dated April 15, 2023. FINDINGS: The visualized lung bases are unremarkable. The visualized portions of the heart are within normal limits. Stable 2 cm cyst in the lateral aspect of the right lobe of the liver. The patient is status post cholecystectomy. Normal spleen. Normal pancreas. Normal bilateral adrenal glands. Normal right kidney. Punctate nonobstructive calculus is seen in the lower pole calyx of the left kidney. Normal visualized stomach. Normal small intestine. Moderate amount of fecal material is seen in the right hemicolon. Sigmoid diverticulosis. The appendix is visualized and appears normal. Normal abdominal aorta. Normal inferior vena cava. Normal retroperitoneum. Normal urinary bladder. Normal abdominal wall. There are mild degenerative changes of the visualized lumbar spine. CT/Abdomen/Pelvis WITH Contrast IMPRESSION: Stable examination. There has been no change as compared to prior study. Electronically Signed: Young Aguayo MD at 12:20 EDT ,
== END | disposition home or self-care (01) ==
LOC: CT 09:12
PROVIDERS: PCP Nurse Practitioner Family; Referring Provider Nurse Practitioner Family; Visit Provider Nurse Practitioner Family
DX: R10.11 Right upper quadrant pain (principal)
CPT/HCPCS: 74177; Q9967

== ENCOUNTER → 2023-05-29 | Outpatient (CLI) | payer OTHER, SELFPAY ==
--- NOTE | 2023-05-29 15:53 | MRI_ITS ---
EXAM: MR Spine Thoracic WO/W Contrast HISTORY: PAIN, MID UPPER BACK, H/O KIDNEY CANCER TECHNIQUE: MR Spine Thoracic WO/W Contrast COMPARISON: XR thoracic spine April 01, 2023. LIMITATIONS: None. FINDINGS: Mild scoliosis. No acute fracture is identified. No focal suspicious osseous lesions. No evidence of osteomyelitis/discitis. No epidural abscess. At T6-7, a central disc protrusion results in mild effacement of the anterior aspect of the thecal sac without significant central canal stenosis. Disc bulge at T11-12 without significant central canal stenosis. Left paracentral disc protrusion at T12-L1 results in mild left lateral recess stenosis. No cord compression. Signal within the spinal cord is normal. MRI/Spine Thoracic W/WO Contrast IMPRESSION: No metastatic disease to the thoracic spine. Mild central disc protrusion at T6-7 without significant central canal stenosis. Left paracentral disc protrusion at T12-L1 with mild left lateral recess stenosis. Electronically Signed: Dash Davis MD at 3:29 EDT ,
[2023-05-29 16:26] LABS: EGFR FINGERSTICK > 60.0000 mL/min (>60)
== END | disposition home or self-care (01) ==
PROVIDERS: PCP Nurse Practitioner Family; Referring Provider Nurse Practitioner Family; Visit Provider Nurse Practitioner Family
DX: M54.6 Pain in thoracic spine (principal)
CPT/HCPCS: 72157; A9575

== ENCOUNTER 2023-07-03 13:30 | Outpatient (RCR) | payer OTHER, SELFPAY ==
--- NOTE | 2023-05-17 12:22 | HP.PTEVAL_ITS ---
Patient's Visit Information Visit Information Visit Information: ENRIQUETA REESE is a 48 year old M referred to Physical Therapy by Violeta Thakur, ROSALBA-C with a diagnosis of LOWER THORACIC PAIN. Date of Evaluation: 05/17/23 Physical Therapist: Ashley Taylor PT, Cert MDT Visit Plan Frequency: 2-3x /Week Duration: 4-6 Weeks Plan: *CHECK AUTH NEXT VISIT: RECORD # OF VISITS APPROVED AND EXPIRATION DATE. CHECK CODES APPROVED WITH POC* CONSIDER THE FOLLOWING POC IF OK'D BY VIOLETA THAKUR RESEARCH PROGRAM INTERN AFTER RE-ASSESSMENT: AQUATIC THERAPY FOR PAIN RELIEF AND POSTURE CORRECTION/STRENGTHENING, INSTRUCTION IN APPROPRIATE BODY MECHANICS AND ACTIVITY MODIFICATIONS. DLS STARTING WITH A NEUTRAL SPINE PROGRESSING ROM TOLERATED. SHANEL LE ROM, STRETCHING AND STRENGTHENING. HEP INSTRUCTION. 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 PATIENT DENIES SHANEL UE AND LE NUMBNESS OR TINGLING BUT DOES REPORT NUMBNESS IN R MID BACK BELOW SHLD BLADE WHERE PAIN STARTED AND TOWARD SPINE AT THIS LEVEL. Present since: MARCH 16 2023 Pain Scale: WORST 8/10, LEAST 2/10 Currently: 2/10 Is it getting better, worse or staying the same: GETTING WORSE. THE PAIN IS SPREADING. Commenced as a result of: JUMP SERVING A VOLLEYBALL WITHOUT WARM UP AND STOPPED BECAUSE FELT SORE THEN GOT SICK THAT NIGHT WITH FEAVER AND CHILLS. WHEN GOT OVER BEING SICK ABOUT A WEEK LATER NOTICED THE PAIN IN HIS R BACK MORE AND IT PROGRESSED FROM THERE. Symptoms at onset: RIGHT MID BACK PAIN. Worse: PROLONGED SITTING, PROLONGED STANDING, THE DAY PROGRESSES. UNABLE TO DO NORMAL ADL'S CURRENTLY LIKE BENDING, LIFTING, TWISTING, MOWING, FISHING, TAKING THE TRASH OUT... Better: SLIGHT RELIEF WITH MUSCLE RELAXER AND Excedrin. Ice on back in semi- reclined position. Disturbed sleep: YES Previous history/Previous treatment: H/O BACK INJURY APPROX 1999 - PINCHED NERVE IN LOWER BACK - LIFTING OVER HEAD WHILE ON SKATEBOARD. NEAR COMPLETE RESOLUTION WITH CHIROPRACTIC AND TIME. H/O R SHLD PROBLEMS FROM PLAYING VOLLEYBALL SINCE 15 YEARS OLD - ROTATOR CUFF INJURY. TREATED WITH PT. NO H/O R SHLD OR BACK SURGERY OR INJECTIONS. NO NECK HISTORY REPORTED. Treatment this episode: 2 MASSAGES - TEMPORARY RELIEF FOR MAYBE AN HOUR OR TWO. STEROID DOSE CHARLEEN PRESCRIBED BY BROTHER EARLY ON WHILE ON VACATION - NE. MUSCLE RELAXER. NO CHIROPRACTOR THIS EPISODE. OTHER: PATIENT REPORTS HE WAS REFERRED TO AN ENDROCRINOLOGIST AND THEY DID NOT CALL HIM BACK. 2ND ENDROCRINOLGIST REBECCA'T PENDING 05/30/23. PATIENT REPORTS MRI WAS ORDERED AND HE ORIGINALLY REFUSED PT BUT MRI WAS DENIED UNTIL HE TRIES PT SO PT WAS ORDERED ABOUT 3 WKS AGO. HE REPORTS VIOLETA THAKUR IS AWARE HIS PAIN HAD SPREAD UP TO HIS UPPER BACK BUT NOT INTO HIS NECK AND SHLD'S LIKE IT HAS NOW. Coughing/sneezing/straining: POSITIVE FOR INCREASED PAIN. Gait: PATIENT REPORTS HIS LEGS FEEL NORMAL AND HE CAN WALK NORMAL. Bowel or Bladder Dysfunction: PATIENT DENIES Accidents: PATIENT DENIES Unexplained weight loss: LOST ABOUT 20 LBS IN ABOUT A WK TOWARD THE END OF MARCH FOR NO APPARENT REASON. Imagin04/02/23 LUMBAR X-RAY: IMPRESSION: Unremarkable lumbar spine. If there is persistent clinical concern for spine fracture and this is a trauma patient, recommend dedicated lumbar spine CT. 04/02/23 THORACIC X-RAY: IMPRESSION: No radiographic evidence of acute compression fracture. PMH PER [facility] EMR REVIEWED WITH PATIENT AND EDITED: Brain lesion removed that patient relates to seizures - Removed at [facility]. Cellulitis Diabetes mellitus, type 2 - Patient reports he is not currently diabetic. Hypertension Kidney carcinoma Seizures - None recent per patient report. Patient reports H/O partial removal of small intestines as a child due to Gangrene. History of cholecystectomy Objective Objective: Sitting/Standing Posture: FH. RSH'S. REDUCED LUMBAR LORDOSIS BUT NO RELEVANT LATERAL SHIFT. Other Observations: THIS PATIENT AMBULATES INDEP'LY INTO PT WITHOUT ANY ASSISTIVE DEVICES. HE WALKS WITH DECREASED SHANEL STRIDE LENGTH AND DECREASED TRUNK ROTATION. HE DEMO'S INDEP TRANSFER SIT TO STAND WITHOUT UE ASSIST. HIS SITTING POSTURE AND GAIT IS GUARDED. Sensory deficit: SHANEL UE AND LE LIGHT TOUCH SENSATION IS GROSSLY INTACT AND SYMMETRICAL BUT HE HAS DECREASED LIGHT TOUCH IN THE RIGHT T6,7,8 REGION. ROM deficit: SHLD ELEVATION WAS TESTED ONE ARM AT A TIME AND PATIENT IS ONLY ABLE TO ELEVATE EA ARM ABOUT 110 DEG WITH C/O PAIN AT THE END OF THE RANGE R>L IN THE MID BACK REGION. HE ALSO EXHIBITS TIGHTNESS IN SHANEL HS'S. Motor deficit: UE STRENGTH AND HIP STRENGTH TESTING IS PAIN LIMITED BUT LE STRENGTH IS GROSSLY: HIPS 4-/5, KNEES 5/5, ANKLES 5/5. Dural Signs: POSITIVE SHANEL LE'S. Lumbar mvmt loss: flex - NIL ext - MIN R SB - MOD TO RAMIREZ L SB - MOD TO RAMIREZ PATIENT C/O R MID AND CENTRAL BACK PAIN LIMITING SHANEL SB ROM TESTING AND IT REMAINS WORSE A RESULT DESPITE GENTLE TESTING. THORACIC MVMT LOSS IS MODERATE ALL PLANES AND PAINFUL WITH TESTING. Core strength: PAIN LIMITED PATIENT MAY BENEFIT FROM AQUATIC THERAPY FOR GENTLE WHOLE BODY ROM, STRETCHING AND STRENGTHENING FOR PAIN RELIEF AND TO TRY TO HELP HIM REGAIN HIS MOBILITY BUT PHYSICIAN RE-ASSESSMENT RECOMMENDED DUE TO SPREADING OF SYMPTOMS. PATIENT IS AGREEABLE. PATIENT IS TEARFUL DURING EVALUATION STATING THAT THIS IS GREATLY IMPACTING HIS QUALITY OF LIFE. HE STATES HE IS GOING TO STOP OVER AT [facility] TO SPEAK TO A NURSE TODAY AND ATIYALE FOLLOW UP WITH VIOLETA THAKUR. Balance/Special Test Scores Oswestry Low Back Score: 33 Goals Goal 1:: DECREASE C/O BACK PAIN Goal Time Frame: 4-6 Weeks Goal 2:: IMPROVE PERSONAL CARE, LIFTING, WALKING, SITTING, STANDING, SLEEP, SOCIAL LIFE, TRAVEL AND WORK/HOMEMAKING FUNCTION. Goal Time Frame: 4-6 Weeks Goal 3:: INSTRUCT IN PROPHYLAXIS Goal Time Frame: 4-6 Weeks Anticipated Interventions Patient/Client Instruction: Educate patient on: Condition, Plan of Care and Risk Factors For the Purpose of:: To improve self management Therapeutic Exercise to Include: Strength training, Body mechanics, Postural training, Flexibilty training, Neuromotor development, In an aquatic setting and Dynamic Lumbar Stabilization For the Purpose of:: To decrease pain, To increase ROM, To improve muscle performance and motor function, To increase tolerance to activity/condition/position and To improve ability of physical actions for home/community/work/leisure Text: Thank you for the opportunity to evaluate your patient. For Medicare and Medicare HMO plans, please review the plan of care and approve it. It will need to be FAXED BACK to us at [phone] for Medicare purposes. For Medicare only, by signing this I certify the plan of care. Please let me know if there are questions or concerns regarding this plan of care. Physician Signature: Date:
--- NOTE | 2023-06-10 16:14 | HP.PTREVAL ---
Re-Evaluation Intro: MAURISIO Castellanos, It has been my pleasure to treat ENRIQUETA REESE over the last 2 visits for LOWER THORACIC PAIN/NECK PAIN. Please see the progress note below for an update on the physical therapy plan of care! Subjective Subjective: PATIENT PRESENTS TODAY WITH CHIEF C/O R SHLD PAIN. PATIENT REPORTS THAT AFTER HAVING HIS PT EVAL HE WALKED OVER TO SEE VIOLETA BRIAN CNP AND SHE ORDERED AN MRI AND HE STARTED SEEING A CHIROPRACTOR 2 DAYS LATER 1-2 TIMES A WK UNTIL NOW. HE REPORTS SEEING AN ASSISTANT PROFESSOR SCULPTURE FOR THYROIDITIS AND HAS NOW BEEN CLEARED BY ENDOCRINOLOGY. 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 HE IS WAITING TO HEAR WHEN AND WHERE THAT REBECCA'T IS GOING TO BE. HE REPORTS HE IS SUPPOSED TO SEE THE CHIROPRACTOR AGAIN TOMORROW BUT HE ISN'T SURE IF HE IS GOING TO GO. HE REPORTS TEMPORARY RELIEF WITH THE CHIROPRACTOR BUT REPORTS HIS R SHLD HURTS SO BAD RIGHT NOW IT FEELS LIKE IT DID WHEN HE TORE HIS ROTATOR CUFF. HE REPORTS HE DOESN'T LIKE USING HIS R ARM MUCH AT ALL DUE TO THE PAIN BUT FORCES HIMSELF TO. PATIENT DENIES SHANEL UE NUMBNESS AND TINGLING. PATIENT DENIES HEADACHES, DIZZINESS, LIGHTHEADEDNESS, DIFFICULTY swallowing. Objective Objective/Function: PATIENT WAS SEEN TODAY FOR RE-ASSESSMENT DUE TO NEW PT ORDER REC'D WITH DX OF NECK PAIN. UPON EXAM TODAY: Sensory deficit: SHANEL UE LIGHT TOUCH SENSATION GROSSLY INTACT AND SYMMETRICAL. ROM deficit: SHANEL UE FLEXION IN STANDING TO 170 DEG SHANEL. ACTIVE SHANEL IR AND ER WFL IN STANDING (BUT PAINFUL WITH MVMT) BUT IN LYING PATIENT UNABLE TO MOVE R SHLD ANY DIRECTION. UNABLE TO TEST R SHLD ROM IN LYING DUE TO PATIENT C/O PAIN AND GUARDING. 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 PATIENT DENIES DOMINANT HAND BUT WRITES WITH L HAND. STRENGTH: R SHLD STRENGTH TESTING IS PAIN LIMITED BUT APPEARS TO BE AT LEAST 3/5. Reflexes: UNABLE TO elicit SHANEL UE DTR'S. POSTURAL STRENGTH: POOR. ABLE TO FULLY CORRECT POSTURE BUT UNABLE TO MAINTAIN. Cervical Mvmt Loss: Flex: NIL Pro: NIL Ext: MIN Ret: MIN - INCREASES NECK PAIN - MILD RSB: NIL LSB: MOD - INCREASES NECK PAIN - MILD R Rot: NIL - INCREASES NECK PAIN - MILD L Rot: MIN - INCREASES NECK PAIN - MILD PATIENT DENIES INCREASED NECK PAIN A RESULT OF NECK ROM TESTING ONCE CONCLUDED. OTHER: SEATED CERVICAL DISTRACTION TESTING - NE ASSESSMENT: PATIENT PRESENTS WITH CHIEF C/O R SHLD PAIN AND DEMO'S R SHLD WEAKNESS AND POSTURAL WEAKNESS. Plan Plan Plan: GIVE QUICK DASH NEXT VISIT FOR BASELINE. R SHLD US X 6. POSTURE CORRECTION/STRENGTHENING. FOCUS ON R SHLD ROM, STRETCHING AND STRENGTHENING INCLUDING SCAPULAR STABILIZATION. HEP INSTRUCTION. Balance/Gait/Functional tests Balance/Special Test Scores Oswestry Low Back Score: 33 Goals Goals Goal 1:: DECREASE C/O BACK PAIN. NEW GOAL: DECREASE NECK, SHLD AND UPPER BACK PAIN Goal Time Frame: 4-6 Weeks Goal 2:: IMPROVE PERSONAL CARE, LIFTING, WALKING, SITTING, STANDING, SLEEP, SOCIAL LIFE, TRAVEL AND WORK/HOMEMAKING FUNCTION. Goal Time Frame: 4-6 Weeks Goal 3:: INSTRUCT IN PROPHYLAXIS Goal Time Frame: 4-6 Weeks Goal 4:: NEW GOAL: IMPROVE R UE REACHING, PUSHING AND PULLING FUNCTION. Goal Time Frame: 4-6 Weeks Anticipated Interventions Anticipated Interventions Patient/Client Instruction: Educate patient on: Condition, Plan of Care and Risk Factors For the Purpose of:: To improve self management Therapeutic Exercise to Include: Strength training, Body mechanics, Postural training, Flexibilty training, Neuromotor development, In an aquatic setting and Dynamic Lumbar Stabilization For the Purpose of:: To decrease pain, To increase ROM, To improve muscle performance and motor function, To increase tolerance to activity/condition/position and To improve ability of physical actions for home/community/work/leisure Re-Evaluation Ending Re-evaluation ending: Please do not hesitate to contact me at [phone] by phone or if you have questions or concerns regarding this new plan of care! Sincerely, Ashley Taylor, PT, Cert MDT
--- NOTE | 2023-07-03 14:08 | HP.PTDCSUM_ITS ---
Discharge Summary D/C summary: It has been my pleasure to treat ENRIQUETA REESE referred by Kathie Thakur, ROSALBA- C, with the diagnosis of LOWER THORACIC PAIN/NECK PAIN for a total of 11 visit(s). Discharge Date: Please see the following information for a summary of their discharge status. Subjective Subjective: PATIENT REPORTS HIS SHLD AND BACK DO NOT SEEM TO BOTHER HIM ANYMORE WITH NORMAL EVERY DAY ACTIVITIES BUT HE HAS TO BE CAREFUL WITH RECREATIONAL ACTIVITIES LIKE PICKLEBALL (ALTHOUGH ABLE TO PLAY ABOUT A WK AND A HALF AGO WITHOUT PAIN). STATES HE IS NOT ON ANY PAIN MEDICINE AND WILL FOLLOW UP WITH HIS DOCTOR NEEDED. Pain NECK: Pain Intensity (Out of 10): 0 R SHL: Pain Intensity (Out of 10): 0 L SHLD: Pain Intensity (Out of 10): 0 MID BACK: Pain Intensity (Out of 10): 0 LOWER BACK: Pain Intensity (Out of 10): 0 Overall Improvement % Improvement: 90 Objective Objective/Function: PATIENT WAS SEEN TODAY FOR RE-ASSESSMENT OF PROGRESS TOWARD THE SET PT GOALS AND THE NEED FOR FURTHER PHYSICAL THERAPY VS READINESS FOR DISCHARGE. UPON EXAM TODAY PATIENT DEMO'S FULL NECK, THORACIC, AND SHANEL SHLD ROM WITHOUT C/O PAIN. SHANEL UE STRENGTH IS 5/5 WITH MMT'ING AND ALL GOALS HAVE BEEN MET. HE IS APPROPRIATE FOR AND AGREEABLE TO DISCHARGE. Goals Goal 1:: DECREASE C/O BACK PAIN. NEW GOAL: DECREASE NECK, SHLD AND UPPER BACK PAIN Goal Progress: Goal Met Goal 2:: IMPROVE PERSONAL CARE, LIFTING, WALKING, SITTING, STANDING, SLEEP, SOCIAL LIFE, TRAVEL AND WORK/HOMEMAKING FUNCTION. Goal Progress: Goal Met Goal 3:: INSTRUCT IN PROPHYLAXIS Goal Progress: Goal Met Goal 4:: NEW GOAL: IMPROVE R UE REACHING, PUSHING AND PULLING FUNCTION. Goal Progress: Goal Met Plan Plan: D/C D/C Information d/c sentence: If there are questions or concerns regarding this patient's physical therapy, please feel free to call me at [phone]. Thank you for the referral of this patient. Sincerely, Ashley Taylor, PT, Cert MDT Balance/Gait/Functional tests Balance/Special Test Scores Oswestry Low Back Score: 5 Quick DASH Score: 4.5450 Improvement % Improvement: 90
== END 2023-07-03 14:35 | disposition home or self-care (01) ==
LOC: PT 13:30
PROVIDERS: PCP Nurse Practitioner Family; Visit Provider Nurse Practitioner Family
DX: M54.6 Pain in thoracic spine (principal)
CPT/HCPCS: 97035; 97110; 97162; 97164; 97530

== ENCOUNTER → 2024-06-22 | Outpatient (CLI) | payer OTHER, SELFPAY ==
[2024-06-22 12:16] LABS: ALB/GLOB Ratio 1.2 RATIO (0.9-2.4); AST(SGOT) 24 U/L (15-37); Alanine Aminotransfer ALT/SGPT 39 U/L (16-61); Albumin, Serum 3.8 g/dL (3.2-5.0); Alkaline Phosphatase 80 U/L (45-117); Anion Gap 4 (5-15); BUN 15 mg/dL (7-18); BUN/Creat Ratio 12.1 RATIO (10-20); Calcium,Total 9.3 mg/dL (8.5-10.1); Chloride 109 mmol/L (98-107); Cholesterol 150 mg/dL (200); Creatinine, Serum 1.24 mg/dL (0.70-1.30); EST Glomerular Filtration Rate 66 mL/min (>60); Est Glom Filt Rate - Afr Amer 80 mL/min (>60); Globulin 3.2 g/dL (2.2-4.2); Glucose 148 mg/dL (74-106); High Density Lipoprotein 32 mg/dL; Potassium 4.4 mmol/L (3.5-5.1); Sodium Level 139 mmol/L (136-145); Triglycerides 154 mg/dL; Very Low Density Lipoprotein 31 mg/dL (5-40)
== END | disposition home or self-care (01) ==
LOC: LAB 11:12
PROVIDERS: PCP Nurse Practitioner Family; Referring Provider Family Medicine; Visit Provider Family Medicine
DX: Z00.00 Encounter for general adult medical examination without abnormal findings (principal); R73.03 Prediabetes
CPT/HCPCS: 36415; 80053; 80061; 83036

== ENCOUNTER 2024-07-24 13:49 | Emergency (ER) | payer OTHER, SELFPAY ==
[2024-07-24 13:49] VITALS: BP 138/98; PULSE 87; RESP 16; TEMP 36.8; O2SAT 100; BMI 27.9
[2024-07-24 14:43] LABS: Absolute Lymphocyte Count 0.86 X10^3/uL (0.83-4.51); Absolute Neutrophil Count 2.6 X10^3/uL (2.0-7.7); Basophil# 0.03 X10^3/uL; Basophil% 0.7 % (0-1); Color, Urine Yellow (Yellow); Glucose, Dipstick Normal (Normal); Hematocrit 42.8 % (40-54); Hemoglobin 14.2 g/dL (13.0-16.5); Ketone-Dipstick Negative (Negative); Leukocyte Esterase-Dipstick Negative /ul (Negative); Lymphocyte # 0.86 X10^3/ul (0.83-4.51); Lymphocyte % 21.4 % (19-41); Mean Corp Hgb Conc 33.2 g/dL (32-36); Mean Corpuscular Hgb 29.2 pg (27.0-32.0); Mean Corpuscular Volume 88.1 fL (80-94); Mean Platelet Vol. 10.5 fl (6.2-12.0); Monocyte# 0.47 X10^3/uL; Monocyte% 11.7 % (0-10); Mucous, Urine 0 SEEN /hpf (<or=2+); NRBC Flagged by Analyzer 0 % (0-5); Neutrophil # 2.63 X10^3/uL (2.7-7.7); Neutrophil % 65.7 % (47-70); Nitrite-Dipstick Negative (Negative); Occult Blood-Urine 50 /ul (Negative); Platelet Count 186 K/mm3 (150-450); Protein-Dipstick 15 mg/dl (Negative); RBC Distribution Width CV 12.7 % (11.6-14.6); RBC Distribution Width SD 40.8 fl (35.1-43.9); Red Blood Cells-Urine 0 SEEN /hpf (0-5); Red Blood Count 4.86 M/mm3 (4.6-6.2); Urine Bilirubin Dipstick Negative (Negative); Urine Clarity Clear (Clear); Urine Urobilinogen Normal (Normal)
[2024-07-24 14:55] LABS: Amorphous Sediment 1+; Anion Gap 4 (5-15); BUN 27 mg/dL (7-18); BUN/Creat Ratio 15.5 RATIO (10-20); Bacteria 2+ /hpf (None Seen); Calcium,Total 9.8 mg/dL (8.5-10.1); Chloride 107 mmol/L (98-107); Creatinine, Serum 1.74 mg/dL (0.70-1.30); EST Glomerular Filtration Rate 44 mL/min (>60); Est Glom Filt Rate - Afr Amer 54 mL/min (>60); Estimated Creatinine Clearance 64.49 ml/min; Glucose 130 mg/dL (74-106); Potassium 4.7 mmol/L (3.5-5.1); Sodium Level 139 mmol/L (136-145); Squamous Epithelial Cells - UA 0-5 SEEN /hpf (0-5); White Blood Cells 0-5 SEEN /hpf (0-5)
== END 2024-07-24 15:36 | disposition home or self-care (01) ==
PROVIDERS: Emergency Provider Emergency Medicine; PCP Family Medicine; Visit Provider Emergency Medicine
DX: R10.9 Unspecified abdominal pain (principal); E11.9 Type 2 diabetes mellitus without complications; N17.9 Acute kidney failure, unspecified; I10 Essential (primary) hypertension; Z87.891 Personal history of nicotine dependence; Z90.5 Acquired absence of kidney; Z85.528 Personal history of other malignant neoplasm of kidney
CPT/HCPCS: 74176; 80048; 81001; 85025; 99283; A4216

== ENCOUNTER → 2024-08-03 | Outpatient (CLI) | payer OTHER, SELFPAY ==
[2024-08-03 16:06] LABS: Anion Gap 5 (5-15); BUN 21 mg/dL (7-18); BUN/Creat Ratio 13.1 RATIO (10-20); Calcium,Total 9.2 mg/dL (8.5-10.1); Chloride 111 mmol/L (98-107); EST Glomerular Filtration Rate 49 mL/min (>60); Est Glom Filt Rate - Afr Amer 59 mL/min (>60); Glucose 106 mg/dL (74-106); Potassium 4.6 mmol/L (3.5-5.1); Sodium Level 140 mmol/L (136-145)
== END | disposition home or self-care (01) ==
LOC: LAB 15:23
PROVIDERS: PCP Family Medicine; Referring Provider Urology; Visit Provider Urology
DX: C64.1 Malignant neoplasm of right kidney, except renal pelvis (principal)
CPT/HCPCS: 36415; 80048

== ENCOUNTER → 2024-09-25 | Outpatient (CLI) | payer OTHER, SELFPAY ==
[2024-09-25 14:01] LABS: Anion Gap 5 (5-15); BUN 25 mg/dL (7-18); Chloride 110 mmol/L (98-107); Creatinine, Serum 1.19 mg/dL (0.70-1.30); EST Glomerular Filtration Rate 69 mL/min (>60); Est Glom Filt Rate - Afr Amer 83 mL/min (>60); Glucose 142 mg/dL (74-106); Potassium 4.5 mmol/L (3.5-5.1); Sodium Level 141 mmol/L (136-145)
== END | disposition home or self-care (01) ==
LOC: LAB 13:20
PROVIDERS: PCP Family Medicine; Referring Provider Family Medicine; Visit Provider Family Medicine
DX: I10 Essential (primary) hypertension (principal)
CPT/HCPCS: 36415; 80048

== ENCOUNTER 2025-08-29 18:19 | Emergency (ER) | payer OTHER, SELFPAY ==
[2025-08-29 18:19] VITALS: BP 175/95; PULSE 63; RESP 20; TEMP 36.1; O2SAT 100; BMI 26.6
[2025-08-29 19:07] VITALS: BP 163/96; PULSE 62; RESP 16; TEMP 36.7; O2SAT 99
--- NOTE | 2025-08-29 19:35 | EDS_ITS ---
HPI History of Present Illness Chief Complaint: Lower Extremity Injury Informant: patient Narrative Narrative: Patient is a 50-year-old male with no signal past medical history presenting with atraumatic right knee swelling and discomfort. The swelling is mostly over the superior aspect of the knee. Denies any trauma. Notes that he did drive last week to and from [place] to pick his daughter up from college. Seem to be worse after that. Also states he recently took up woodworking hobby which has him on his feet, bending over and leaning down a lot. Did not take any for pain. was concerned that his calf looked a little swollen as well. He den ies any shortness of breath or difficulty breathing. No numbness or tingling. No rash reported. Spoke to family who stated his possible could be DVT recommend he come to the ER for further evaluation. No other complaints or concerns reported at this time. [facility] Medical History Diabetes mellitus, type 2 Kidney carcinoma Brain tumor Hypertension Migraines Seizures Cellulitis Home Medications ?Medication ?Instructions ?Recorded ?Last Taken ?Type clonidine HCl 0.2 mg tablet 0.1 mg PO BID blood pressu re 07/07/13 11/22/17 02:00 History lisinopril 10 mg tablet 40 mg PO DAILY bp 07/07/13 0 11/22/17 05:10 History montelukast 10 mg tablet 10 mg PO 0000 allergies 06/1011/22/17 02:00 History cetirizine 10 mg capsule (Zyrtec) 10 mg PO DAILY aller gies 03/03/14 03/09/14 05:30 History zolpidem 10 mg tablet (Ambien) 10 mg PO QHS sleep 02/08 01/20 Unknown History levetiracetam 1,000 mg tablet 1,000 mg PO 1200 seizure s 03/09/14 11/22/17 02:00 History (Keppra) cholecalciferol (vitamin D3) 50 2,000 unit PO DAILY vi tamin 11/18/17 Unknown History mcg (2,000 unit) capsule (Vitamin D3) levetiracetam 1,000 mg tablet 2,000 mg PO 0000 seizure s 11/18/17 Unknown History levetiracetam 1,000 mg tablet 2,000 mg PO DAILY seizur e 08/14/21 Unknown History (Keppra) [id number] pork 3 cap PO PRN PRN with sna cks 08/14/21 Unknown History 16,000-57,500-60,500 unit capsule,del rel (Pertzye) [id number] pork 5 cap PO TIDCM 08/14/21 U nknown History 16,000-57,500-60,500 unit capsule,del rel (Pertzye) metformin 500 mg tablet 500 mg PO DAILY #30 tabs 07/30 Unknown Rx naloxone 4 mg/actuation nasal spray 4 mg intranasal Q3 M PRN opioid 08/19/21 Unknown Rx overdose #2 ea Allergy/AdvReac Type Severity Reaction Status Date / Time No Known Allergies Allergy Verified 08/29/25 18:21 Surgical History History of cholecystectomy Social History Smoking Status: Former smoker ROS ROS ED Constitutional Constitutional ED: Denies chills or fever(s) Musculoskeletal Musculoskeletal: Reports other Details: Right knee discomfort and swelling Integumentary Denies rash Neurologic Neurologic: Denies paresthesias or weakness Hematologic/Lymphatic Hematologic/Lymphatic: Denies easy bleeding or easy bruising EXAM Physical Exam Const Vital Signs: 08/29/25 18:19 08/29/25 19:07 Temperature 97 F L 98.1 F Temperature Source Temporal Pulse Rate 63 62 Respiratory Rate 20 H 16 Blood Pressure 175/95 H 163/96 H Blood Pressure Mean 121 118 Pulse Ox 100 99 Oxygen Delivery Method Room Air Positive well nourished and well developed General Appearance ED: well developed and NAD HEENT Reports moist mucous membranes Resp normal respiratory effort Cardio regular rate and regular rhythm Cardio Narrative: 2+ DP and PT pulses Extremity Extremity Narrative: No obvious deformity of the right lower extremity. No palpable cords. No edema present. Normal Mccormack test. No pain with range of motion at the right hip. At the right knee he has soft tissue swelling with no associated warmth or erythema superior anterior to the knee. Normal extensor mechanism. No significant joint effusion present in the knee. No significant laxity of the knee on stress maneuvers present. No tibial plateau tenderness. Neuro oriented x3, moves all extremities and no sensory deficits noted Neuro Narrative: Ambulates with a steady gait Sensorium / Orientation: alert Psych mental status grossly normal Skin no wounds Skin Narrative: No overlying skin changes, redness or warmth. Lesions: no lesions Rashes: no rashes MDM MDM MDM Narrative Medical decision making narrative: Patient valuated for atraumatic right knee swelling and discomfort. No trauma reported. Lower swished for associated fracture or dislocation. Do not think imaging is indicated but was considered. Physical exam most concerning with a suprapatellar bursitis. Due to his recent travel I did perform a bedside 3 point vascular ultrasound of the lower extremity which was negative for DVT. I have a low clinical suspicion I do not think he requires a formal ultrasound for this. Given reassurance. Does have any signs or symptoms close with DVT. No infectious symptoms present. No short arc range of motion pain. Low suspicion for septic bursitis or septic joint. Patient was treated conservatively with RICE therapy. Given Luis wrap in the emergency room. Courage follow-up with primary care. Counseled does not improve he might need follow-up with orthopedics, steroids are even physical therapy. Counseled on reducing repetitive activities and movements of the knee. He verbalizes understand this. Discharged home in stable condition. Discharge Plan Triage Chief Complaint: Lower Extremity Injury ED Provider: Kiki Irizarry Dx/Rx/DC Orders Clinical Impression: Suprapatellar bursitis of right knee Instructions: Reducing Knee Pain and Swelling, ED Bursitis Prescriptions: No Action clonidine HCl 0.2 MG tablet 0.1 mg PO BID Patient Comments: TAKES 0200 & 1700 lisinopril 10 MG tablet 40 mg PO DAILY montelukast 10 MG tablet 10 mg PO 0000 Rx Instructions: takes daily at 0000 zolpidem [Ambien] 10 MG tablet 10 mg PO QHS Zyrtec 10 MG capsule 10 mg PO DAILY levetiracetam [Keppra] 1,000 MG tablet 1,000 mg PO 1200 levetiracetam 1,000 MG tablet 2,000 mg PO 0000 Rx Instructions: takes 2000 mg @ midnight and 1000 mg @ 3689-2664 cholecalciferol (vitamin D3) [Vitamin D3] 2,000 UNIT capsule 2,000 unit PO DAILY Pertzye 16,000-57,500- 60,500 unit capsule,delayed release(DR/EC) 5 cap PO TIDCM Rx Instructions: takes 5 capsules with every meal and 3 with snacks Pertzye 16,000-57,500- 60,500 unit capsule,delayed release(DR/EC) 3 cap PO PRN PRN (Reason: with snacks) Rx Instructions: takes 3 capsules with snacks as needed levetiracetam [Keppra] 1,000 mg Tablet 2,000 mg PO DAILY Rx Instructions: pt takes 2,000mg at midnight metformin 500 mg tablet 500 mg PO DAILY Qty: 30 0RF naloxone 4 mg/actuation spray,non-aerosol 4 mg intranasal Q3M PRN (Reason: opioid overdose) Qty: 2 0RF Rx Instructions: spray 1 dose into ONE nostril; alternate nostrils w each dose until help arrives Primary Care Provider: Kt Wilkes Referrals: Kt Wilkes DO [Primary Care Provider, Family Practice] Activity Restrictions/Additional Instructions: Please follow-up with your family doctor for this. Take ibuprofen 600 mg every 6-8 hours to help with swelling, inflammation and discomfort. Wear Luis wrap. Practice RICE therapy (rest ice compression and elevation). I have a very low suspicion for blood clot in the leg and your bedside ultrasound performed by myself today did not show any obvious DVT. Print Language: Serbian Disposition Disposition: Home, Self Care
== END 2025-08-29 19:41 | disposition home or self-care (01) ==
PROVIDERS: Emergency Provider Emergency Medicine; PCP Family Medicine; Visit Provider Emergency Medicine
DX: M70.51 Other bursitis of knee, right knee (principal); E11.9 Type 2 diabetes mellitus without complications; I10 Essential (primary) hypertension; Z87.891 Personal history of nicotine dependence
CPT/HCPCS: 99282

== ENCOUNTER → 2025-08-30 | Outpatient (CLI) | payer OTHER, SELFPAY ==
[2025-08-30 10:12] LABS: Hematocrit 41.1 % (40-54); Hemoglobin 13.5 g/dL (13.0-16.5); Mean Corp Hgb Conc 32.8 g/dL (32-36); Mean Corpuscular Volume 89.3 fL (80-94); Mean Platelet Vol. 10.3 fl (6.2-12.0); Platelet Count 188 K/mm3 (150-450); RBC Distribution Width CV 12.6 % (11.6-14.6); RBC Distribution Width SD 41.1 fl (35.1-43.9); Red Blood Count 4.60 M/mm3 (4.6-6.2); White Blood Count 5.8 K/mm3 (4.4-11.0)
[2025-08-30 11:02] LABS: AST(SGOT) 19 U/L (<=37); Alanine Aminotransfer ALT/SGPT 30 U/L (<=46); Albumin, Serum 4.5 g/dL (3.5-5.0); Alkaline Phosphatase 91 U/L (40-129); Anion Gap 9 (5-15); BUN 17 mg/dL (4-19); BUN/Creat Ratio 15.0 RATIO (10-20); Calcium,Total 10.1 mg/dL (7.6-11.0); Carbon Dioxide 28.0 mmol/L (21.0-32.0); Chloride 106 mmol/L (98-108); Cholesterol 146 mg/dL (<=200); Globulin 2.6 g/dL (2.2-4.2); Glucose 202 mg/dL (70-99); Low Density Lipoprotein Calc. 87 mg/dL; PSA,Total - Annual Screen 0.87 ng/mL (0.02-4.00); Potassium 4.7 mmol/L (3.3-5.1); Triglycerides 92 mg/dL; Very Low Density Lipoprotein 18 mg/dL (5-40); Vitamin B12 1067 pg/mL (180-914); cholesterol:hdl ratio screen 3.54
== END | disposition home or self-care (01) ==
LOC: LAB 09:33
PROVIDERS: PCP Family Medicine; Referring Provider Family Medicine; Visit Provider Family Medicine
DX: Z00.00 Encounter for general adult medical examination without abnormal findings (principal); R53.83 Other fatigue; Z13.29 Encounter for screening for other suspected endocrine disorder; R20.2 Paresthesia of skin; Z12.5 Encounter for screening for malignant neoplasm of prostate
CPT/HCPCS: 36415; 80053; 80061; 82607; 84153; 84439; 84443; 85027; G0103